=== PATIENT | male | born 1975 | race Caucasian/White ===

== ENCOUNTER 2019-06-03 14:25 | Inpatient (IN) | payer OTHER ==
[~2019-06-03] VITALS: Ht 180.3 cm; Wt 96.1 kg
[2019-06-03] MEDS ORDERED: SERT-138 PO (14:42)
[2019-06-03] MEDS ORDERED: BUSP10TA PO (14:42)
[2019-06-03] MEDS ORDERED: LORazepam 2 MG/ML VIAL (J2060) IV STA ×2 (15:00→17:09)
[2019-06-03] MEDS ORDERED: NS 1,000 ML IV ONE ×3 (15:00→19:00)
[2019-06-03] MEDS ORDERED: LORazepam 2 MG/ML VIAL (J2060) As Ordered ONE (15:01)
[2019-06-03 15:03] LABS: HEMATOCRIT 53.2 % (42.0-52.0); HEMOGLOBIN 18.8 g/dl (13.5-17.5); MEAN CORPUSCULAR HEMOGLOBIN 33.6 pg (27.0-33.0); MEAN CORPUSCULAR HGB CONC 35.3 g/dl (32.0-36.5); PLATELET COUNT, AUTOMATED 184 10^3/uL (150-450); WHITE BLOOD COUNT 14.2 10^3/uL (4.0-10.0)
[2019-06-03 15:40] LABS: ACETAMINOPHEN LEVEL < 2.0 UG/ML (10.0-30.0); ALBUMIN 4.6 GM/DL (3.2-5.2); ALT/SGPT 83 U/L (12-78); BILIRUBIN,DIRECT 0.7 MG/DL (0.0-0.2); BLOOD UREA NITROGEN 12 MG/DL (7-18); CALCIUM LEVEL 9.5 MG/DL (8.5-10.1); CARBON DIOXIDE LEVEL 13 MEQ/L (21-32); CHLORIDE LEVEL 96 MEQ/L (98-107); CREATININE FOR GFR 1.18 MG/DL (0.70-1.30); ETHYL ALCOHOL (ETHANOL) 0.084 % (0.000-0.010); GLOMERULAR FILTRATION RATE > 60.0 (>60); GLUCOSE, FASTING 113 MG/DL (70-100); POTASSIUM SERUM 3.4 MEQ/L (3.5-5.1); SALICYLATE LEVEL < 1.7 MG/DL (5.0-30.0); SODIUM LEVEL 136 MEQ/L (136-145); TOTAL PROTEIN 8.7 GM/DL (6.4-8.2)
[2019-06-03 18:07] LABS: VENOUS HCO3 17.8 MEQ/L (23.0-27.0); VENOUS O2 SATURATION 95.4 % (60.0-80.0); VENOUS PARTIAL PRESSURE CO2 28.2 mmHg (38.0-50.0); VENOUS PARTIAL PRESSURE O2 79.5 mmHg (30.0-50.0); VENOUS PH 7.417 UNITS (7.330-7.430); VENOUS STANDARD HCO3 20.4 MEQ/L; VENOUS TOTAL CO2 18.6 MEQ/L (24.0-28.0)
[2019-06-03] MEDS ORDERED: OXAZEPAM 15 MG CAP PO ONE (18:30)
[2019-06-03 18:34] LABS: BLOOD UREA NITROGEN 12 MG/DL (7-18); CALCIUM LEVEL 8.3 MG/DL (8.5-10.1); CARBON DIOXIDE LEVEL 20 MEQ/L (21-32); CHLORIDE LEVEL 102 MEQ/L (98-107); CREATININE FOR GFR 0.91 MG/DL (0.70-1.30); GLOMERULAR FILTRATION RATE > 60.0 (>60); GLUCOSE, FASTING 93 MG/DL (70-100); POTASSIUM SERUM 3.8 MEQ/L (3.5-5.1); SODIUM LEVEL 138 MEQ/L (136-145)
[2019-06-03 19:13] LABS: AMPHETAMINES LEVEL URINE NEGATIVE (NEGATIVE); BARBITURATES URINE NEGATIVE (NEGATIVE); BENZODIAZEPINES URINE NEGATIVE (NEGATIVE); CANNABINOIDS URINE NEGATIVE (NEGATIVE); COCAINE METABOLITE URINE NEGATIVE (NEGATIVE); METHADONE URINE NEGATIVE (NEGATIVE); OPIATES URINE NEGATIVE (NEGATIVE); PHENCYCLIDINE URINE NEGATIVE (NEGATIVE)
[2019-06-03 19:19] LABS: OSMOLALITY SERUM 300 MOSM/KG (275-295)
[2019-06-03] MEDS ORDERED: ONDANSETRON 4MG/2ML VIAL (J2405) IV ONE (21:00)
[2019-06-03] MEDS ORDERED: GI COCKTAIL 50ML BTL(HYOSCYAMINE/MAALOX/LIDOCAINE VISCOUS)(1:3:1) PO ONE (21:00)
[2019-06-04] MEDS ORDERED: LORazepam 2 MG TAB PO PRN (05:15)
[2019-06-04] MEDS: HEPARIN SOD (PORCINE) 5000 UNITS/ML VIAL SC SCH ×3 (05:57→21:39)
--- NOTE | 2019-06-04 07:30 | HPEPDOC ---
General Date of Admission Jun 04, 2019 at 05:10 Date of Service: Jun 04, 2019 Attending Physician: DEYSI JEAN BAPTISTE MD Chief Complaint The patient is a 44-year-old male admitted with a reason for visit of Alcohol Withdrawl. Source: Patient Exam Limitations: No limitations Timing/Duration: 24 hours Severity: Moderate Associated Symptoms: Other (tremors and restlessness) History of Present Illness 44 yo man with a history of alcohol use disorder with daily consumption of 1L of tequila who presented to the ED 24 hour after his last drink reporting increased tremors and restlessness requesting detox. He reports a history of DTs and reported having had a seizure at home before presentation. He also reports smoking at least 1 pack of cigarettes, frequent marijuana use but otherwise does not use any cocaine, heroine, PCP or misuse of prescription medications. In the ED, per nursing his initial exam was notable for significant hand tremors that resolved with administration of benzodiazepines. He otherwise is afebrile, hemodynamically stable with sinus rhythm on telemery. Home Medications Scheduled Buspirone HCl (Buspirone HCl) 10 Mg Tablet, 10 MG PO TID, (Reported) Sertraline HCl (Sertraline HCl) 100 Mg Tablet, 100 MG PO DAILY, (Reported) Allergies Coded Allergies: No Known Allergies (Unverified , 06/03/19) Past Medical History Medical History Alcohol use disorder Smoking Marijuana use Depression Anxiety Surgical History None Social History * Smoker: current smoker Alcohol: heavy Drugs: marijuana Recent Travel/Sick Contacts: Denies: Recent travel, Recent sick contacts Psychosocial History: Anxiety, Depression A-FIB/CHADSVASC A-FIB History Current/History of A-Fib/PAF?: No Current PO Anticoag Therapy: No Age/Risk Factor Scoring CHADSVASC: CHADSVASC Response (Comments) Value Age Risk Factor Age < 65 years old 0 Gender Risk Factor Male 0 Hx of CHF No 0 Hx of HTN No 0 Hx of Stroke/TIA/or VTE No 0 Hx of Diabetes No 0 Hx of Vascular Disease No 0 Total 0 Treatment Treatment ordered: NONE Reason Anticoagulant not given: Not indicated/[id number] Review of Systems Constitutional: Denies: Chills, Fever, Night Sweats Eyes: Denies: Pain, Vision change ENT: Denies: Head Aches, Ear Pain, Dysphagia Skin: Denies: Rash, Lesions, Breakdown Pulmonary: Denies: Dyspnea, Cough Cardiovascular: Denies: Chest Pain, Palpitations, Orthopnea, Paroxysmal Noc. Dyspnea, Lt Headedness Gastrointestinal: Denies: Nausea, Vomiting, Abdominal Pain, Diarrhea Genitourinary: Denies: Dysuria, Frequency, Incontinence, Retention Hematologic: Denies: Bruising, Bleeding Excessively Endocrine: Denies: Polydipsia, Polyphagia, Polyuria, Heat Intolerance, Cold Intolerance, Other Endocrine Sx Musculoskeletal: Denies: Neck Pain, Back Pain, Joint Pain, Muscle Pain, Spasms Neurological: Reports: Seizures, Other Symptoms (tremors, restlessness); Denies: Weakness, Numbness, Change in speech, Confusion Psych: Reports: Mood Normal, Anxiety, Depression, Thoughts of Harming Other; Denies: Memory Issues, Thoughts of Self Harm Physical Examination General Exam: Positive: Alert (initially asleep, awake on voice), No Acute Dis tress Eye Exam: Positive: PERRLA, Conjunctiva & lids normal, EOMI; Negative: Sclera icteric ENT Exam: Positive: Atraumatic, Mucous membr. moist/pink, Pharynx Normal Neck Exam: Positive: Supple; Negative: JVD, thyromegaly Chest Exam: Positive: Clear to auscultation, Normal air movement Heart Exam: Positive: Rate Normal, Regular Rhythm, Normal S1, Normal S2; Negative: Murmurs, Rubs Telemetry: Positive: No significant arrhythmia Abdomen Exam: Positive: Normal bowel sounds, Soft; Negative: Tenderness, Hepatospenomegaly Extremity Exam: Positive: Normal pulses; Negative: Clubbing, Cyanosis, Edema Skin Exam: Positive: Nl turgor and temperature; Negative: Breakdown, Lesion Neuro Exam: Positive: Strength at 5/5 X4 ext, Normal Tone, Cranial Nerves 3-12 NL, Other (no tremor note) Psych Exam: Positive: Mental status NL, Mood NL, Oriented x 3 Vital Signs Vital Signs Date Time Temp Pulse Resp B/P (MAP) Pulse Ox O2 Delivery O2 Flow Rate FiO2 06/04/19 05:59 143/88 06/04/19 05:55 98.8 88 22 94 Room Air Laboratory Data Labs 24H Laboratory Tests 2 06/03/19 14:44: Anion Gap 27H, Glomerular Filtration Rate > 60.0, Calcium Level 9.5, Total Bilirubin 2.0H, Direct Bilirubin 0.7H, Aspartate Amino Transf (AST/SGOT) 77H, Alanine Aminotransferase (ALT/SGPT) 83H, Alkaline Phosphatase 124H, Total Protein 8.7H, Albumin 4.6, Albumin/Globulin Ratio 1.12, Thyroid Stimulating Hormone (TSH) 1.280, Salicylates Level < 1.7L, Acetaminophen Level < 2.0L, Ethyl Alcohol Level 0.084H 06/03/19 14:47: Nucleated Red Blood Cells % (auto) 0.0 06/03/19 17:53: Anion Gap 16, Glomerular Filtration Rate > 60.0, Calcium Level 8.3L, Blood Gas Bicarbonate Standard 20.4, Venous Blood pH 7.417, Venous Blood Partial Pressure CO2 28.2L, Venous Blood Partial Pressure O2 79.5H, Venous Blood Total Carbon Dioxide 18.6L, Venous Blood HCO3 17.8L, Venous Blood Oxygen Saturation 95.4H, Venous Blood Base Excess -5.0L, Osmolality 300H, Lactic Acid Level 4.4*H 06/03/19 18:24: Urine Opiates Screen NEGATIVE, Urine Methadone Screen NEGATIVE, Urine Barbiturates Screen NEGATIVE, Urine Phencyclidine Screen NEGATIVE, Urine Amphetamines Screen NEGATIVE, Urine Benzodiazepines Screen NEGATIVE, Urine Saran emmanuel Metabolite Screen NEGATIVE, Urine Cannabinoids Screen NEGATIVE 06/03/19 22:11: Lactic Acid Level 1.3 CBC/BMP Laboratory Tests 06/03/19 14:44 06/03/19 14:47 06/03/19 17:53 Assessment/Plan 44 yo man with alcohol use disorder admitted for detox. Plan: Alcohol use disorder: -[facility] protocol -thiamine -folate - consult -s/p 3L NS Depression -continue home buspar and sertraline DVT prophylaxis: heparin [id number] Diet: regular Plan / VTE VTE Prophylaxis Ordered?: Yes DEYSI JEAN BAPTISTE MD Jun 04, 2019 07:30
[2019-06-04 08:55] LABS: HEMATOCRIT 43.9 % (42.0-52.0); MEAN CORPUSCULAR HEMOGLOBIN 33.3 pg (27.0-33.0); MEAN CORPUSCULAR HGB CONC 34.6 g/dl (32.0-36.5); MEAN CORPUSCULAR VOLUME 96.1 fl (80.0-96.0); PLATELET COUNT, AUTOMATED 107 10^3/uL (150-450); RED BLOOD COUNT 4.57 10^6/uL (4.30-6.10); WHITE BLOOD COUNT 11.2 10^3/uL (4.0-10.0)
[2019-06-04 08:58] LABS: HEMOGLOBIN 15.2 g/dl (13.5-17.5)
[2019-06-04 09:31] LABS: ALBUMIN 3.3 GM/DL (3.2-5.2); ALT/SGPT 55 U/L (12-78); BILIRUBIN,TOTAL 2.3 MG/DL (0.2-1.0); BLOOD UREA NITROGEN 14 MG/DL (7-18); CALCIUM LEVEL 8.3 MG/DL (8.5-10.1); CARBON DIOXIDE LEVEL 26 MEQ/L (21-32); CHLORIDE LEVEL 105 MEQ/L (98-107); CREATININE FOR GFR 0.76 MG/DL (0.70-1.30); GLOMERULAR FILTRATION RATE > 60.0 (>60); GLUCOSE, FASTING 94 MG/DL (70-100); POTASSIUM SERUM 3.7 MEQ/L (3.5-5.1); SODIUM LEVEL 139 MEQ/L (136-145); TOTAL PROTEIN 6.6 GM/DL (6.4-8.2)
[2019-06-04] MEDS: FOLIC ACID 1 MG TAB PO SCH (09:39)
[2019-06-04] MEDS: MULTIVITAMINS/MINERALS THERAP 1 TAB PO SCH (09:40)
[2019-06-04] MEDS: busPIRone 10 MG TAB PO SCH ×3 (09:40→21:40)
[2019-06-04] MEDS: THIAMINE 100 MG TAB PO SCH ×2 (09:40→21:39)
[2019-06-04] MEDS: SERTRALINE 100 MG TAB PO SCH (09:40)
[2019-06-04 09:50] VITALS: BP 160/96
[2019-06-04 10:00] VITALS: BP 160/96
[2019-06-04] MEDS: amLODIPine 5 MG TAB PO SCH ×2 (12:24→21:40)
[2019-06-04] MEDS: OXAZEPAM 10 MG CAP PO SCH ×2 (12:24→17:37)
[2019-06-04] MEDS: METOPROLOL TART 25 MG TABLET PO SCH ×2 (14:15→17:36)
[2019-06-04 15:10] VITALS: BP 168/90
--- NOTE | 2019-06-04 15:32 | IPN ---
DATE: 06/04/2019 The patient complained of restlessness and shakes. No nausea, vomiting or epigastric pain. Denies any paresthesias in bilateral upper or lower extremities. Extremely uncomfortable and says that his last drink was 2 days ago. Despite blood pressure 160/96, denies any headache, changes in vision, nausea or confusion. PHYSICAL EXAMINATION: Temperature 98, pulse 96, respiratory rate 20, blood pressure 160/96, 92% on room air. GENERAL: The patient is awake, alert and oriented times three. Answering questions appropriately. Anicteric sclerae. No jaundice. Pupils are round, reactive to light and accommodation. Extraocular muscles are intact. No jugular venous distention (JVD) or thyromegaly. No cervical lymphadenopathy. Tongue is midline. Lungs are clear to auscultation. No wheezing, rales or rhonchi. Heart: S1, S2. Sinus rhythm. Abdomen is soft, nontender, nondistended. Positive bowel sounds. Extremities with no cyanosis, clubbing or pitting edema. Skin: The patient is diaphoretic at the bedside. He has asterixis. No tremors. LABORATORY DATA: White count 11, hemoglobin 15, hematocrit 43, platelet count 107. Sodium 139, potassium 3.7, chloride 105, bicarbonate 26, BUN 14, creatinine 0.76, glucose 94. Calcium 8.3, total bilirubin 2.3, AST 48, ALT 55. ASSESSMENT AND PLAN: This is a 44-year-old male with a history of chronic alcohol abuse, presented to the emergency room 2 days after stopping alcohol with complaints of increasing tremors, restlessness and diaphoresis. Urine drug screen was negative for cocaine, heroin, PCP. He was afebrile. Laboratory data showed lactic acid of 4.4, which improved to 1.3 after fluid hydration. CURRENT ISSUES: 1. Acute alcohol withdrawal. Currently on Clinical [place] Withdrawal Assessment (CIWA) protocol. Thiamine, folic acid, and multivitamin. He is currently on Serax 20 mg every 6 hours. Resume on his home dose of BuSpar, sertraline as an outpatient. 2. Deep vein thrombosis (DVT) prophylaxis.
--- NOTE | 2019-06-04 15:56 | IPNPDOC ---
Date Seen The patient was seen on 06/04/19. Progress Note DEPRESSION -pt admits to suicidal ideation 1 wk prior to admission. he denies suicidal attempt or homicidal tendencies. -psychiatrist dr. Brunner has been consulted. -family with stay with him 09/03 in the room. HEMATURIA -check u/a, urine culture -check KUB r/o kidney stones -no signs of hemolysis VS, I&O, 24H, Fishbone Vital Signs/I&O Vital Signs Date Time Temp Pulse Resp B/P (MAP) Pulse Ox O2 Delivery O2 Flow Rate FiO2 06/04/19 15:10 98.3 91 14 168/90 (116) 93 Room Air I&O- Last 24 Hours up to 6 AM 06/04/19 06:00 Intake Total 3000 ml Balance 3000 ml Laboratory Data 24H LABS Laboratory Tests 2 06/03/19 17:53: Blood Gas Bicarbonate Standard 20.4, Venous Blood pH 7.417, Venous Blood Partial Pressure CO2 28.2L, Venous Blood Partial Pressure O2 79.5H, Venous Blood Total Carbon Dioxide 18.6L, Venous Blood HCO3 17.8L, Venous Blood Oxygen Saturation 95.4H, Venous Blood Base Excess -5.0L, Anion Gap 16, Glomerular Filtration Rate > 60.0, Osmolality 300H, Lactic Acid Level 4.4*H, Calcium Level 8.3L 06/03/19 18:24: Urine Opiates Screen NEGATIVE, Urine Methadone Screen NEGATIVE, Urine Barbiturates Screen NEGATIVE, Urine Phencyclidine Screen NEGATIVE, Urine Amphetamines Screen NEGATIVE, Urine Benzodiazepines Screen NEGATIVE, Urine Cocaine Metabolite Screen NEGATIVE, Urine Cannabinoids Screen NEGATIVE 06/03/19 22:11: Lactic Acid Level 1.3 06/04/19 08:43: Anion Gap 8, Glomerular Filtration Rate > 60.0, Calcium Level 8.3L, Nucleated Red Blood Cells % (auto) 0.0, Total Bilirubin 2.3H, Aspartate Amino Transf (AST/SGOT) 48H, Alanine Aminotransferase (ALT/SGPT) 55, Alkaline Phosphatase 89, Total Protein 6.6#, Albumin 3.3#, Albumin/Globulin Ratio 1.00 CBC/BMP Laboratory Tests 06/03/19 17:53 06/04/19 08:43 JOSTIN ANDRE MD Jun 04, 2019 15:56
[2019-06-04] MEDS ORDERED: SUCRALFATE SUSP 1GM/10ML UD PO ONE (16:00)
[2019-06-04] MEDS: cloNIDine 0.1 MG TAB PO SCH ×2 (16:38→21:40)
[2019-06-04] MEDS: NICOTINE 14 MG/24 HR TRANSDERMAL TD SCH (17:36)
[2019-06-04 18:11] LABS: HEMATOCRIT 43.5 % (42.0-52.0); HEMOGLOBIN 15.1 g/dl (13.5-17.5)
[2019-06-04] MEDS: SUCRALFATE SUSP 1GM/10ML UD PO SCH (21:38)
[2019-06-04] MEDS: PANTOPRAZOLE 40MG TAB (PROTONIX) PO SCH (21:39)
[2019-06-04 22:00] VITALS: BP 142/92
[2019-06-04 22:41] VITALS: BP 136/90
[2019-06-05] VITALS (10 sets, daily range): BP systolic 106–142; BP diastolic 60–95
[2019-06-05] MEDS: OXAZEPAM 10 MG CAP PO SCH ×5 (00:08→23:49)
[2019-06-05] MEDS: cloNIDine 0.1 MG TAB PO SCH ×4 (03:37→22:04)
[2019-06-05] MEDS: METOPROLOL TART 25 MG TABLET PO SCH ×5 (06:00→23:48)
[2019-06-05] MEDS: HEPARIN SOD (PORCINE) 5000 UNITS/ML VIAL SC SCH (06:10)
[2019-06-05 06:23] LABS: HEMATOCRIT 43.9 % (42.0-52.0); HEMOGLOBIN 15.4 g/dl (13.5-17.5); MEAN CORPUSCULAR HEMOGLOBIN 33.8 pg (27.0-33.0); MEAN CORPUSCULAR HGB CONC 35.1 g/dl (32.0-36.5); MEAN CORPUSCULAR VOLUME 96.5 fl (80.0-96.0); RED BLOOD COUNT 4.55 10^6/uL (4.30-6.10); WHITE BLOOD COUNT 7.6 10^3/uL (4.0-10.0)
[2019-06-05 06:27] LABS: PLATELET COUNT, AUTOMATED 92 10^3/uL (150-450)
[2019-06-05 06:53] LABS: ALBUMIN 3.1 GM/DL (3.2-5.2); ALT/SGPT 53 U/L (12-78); BILIRUBIN,TOTAL 1.2 MG/DL (0.2-1.0); BLOOD UREA NITROGEN 14 MG/DL (7-18); CALCIUM LEVEL 8.7 MG/DL (8.5-10.1); CARBON DIOXIDE LEVEL 30 MEQ/L (21-32); CHLORIDE LEVEL 105 MEQ/L (98-107); CREATININE FOR GFR 0.81 MG/DL (0.70-1.30); GLOMERULAR FILTRATION RATE > 60.0 (>60); GLUCOSE, FASTING 110 MG/DL (70-100); POTASSIUM SERUM 3.3 MEQ/L (3.5-5.1); SODIUM LEVEL 138 MEQ/L (136-145); TOTAL PROTEIN 6.6 GM/DL (6.4-8.2)
[2019-06-05] MEDS: SUCRALFATE SUSP 1GM/10ML UD PO SCH ×4 (07:26→22:03)
[2019-06-05] MEDS: PANTOPRAZOLE 40MG TAB (PROTONIX) PO SCH ×2 (08:25→22:03)
[2019-06-05] MEDS: FOLIC ACID 1 MG TAB PO SCH (08:25)
[2019-06-05] MEDS: THIAMINE 100 MG TAB PO SCH ×2 (08:25→22:04)
[2019-06-05] MEDS: SERTRALINE 100 MG TAB PO SCH (08:25)
[2019-06-05] MEDS: MULTIVITAMINS/MINERALS THERAP 1 TAB PO SCH (08:25)
[2019-06-05] MEDS: amLODIPine 5 MG TAB PO SCH ×2 (08:25→22:03)
[2019-06-05] MEDS: NICOTINE 14 MG/24 HR TRANSDERMAL TD SCH (08:26)
[2019-06-05] MEDS: busPIRone 10 MG TAB PO SCH ×3 (08:26→22:03)
[2019-06-05] MEDS ORDERED: POTASSIUM CHLORIDE 10 MEQ SR TABLET PO ONE (10:00)
[2019-06-05] MEDS ORDERED: MAG SULF 1GM/100ML (MAG RUN) 1 GM in IV 1 EA IV ONE (10:00)
--- NOTE | 2019-06-05 10:14 | REP ---
KUB: Three views presented. History: Hematuria. Rule out nephrolithiasis. Findings: The bowel gas pattern is normal. There are tiny calcific opacities projecting over the kidneys, one on each side measuring 3 mm in greatest diameter. The colon overlies these densities. No lower tract calculi are seen. Phleboliths are noted in the left pelvis. No bony abnormality is seen. Flank stripes and psoas margins are intact. Impression: Possible intrarenal calculus in the upper pole region of each kidney, 3 mm in size. Electronically Signed by Lenin Leyva MD 06/05/2019 10:18 A
[2019-06-05] MEDS ORDERED: MORPHINE 4 MG/ML 1ML VIAL/SYRINGE (J2270) IV PRN (11:00)
[2019-06-05] MEDS ORDERED: PERCOCET 5MG/325MG TAB PO PRN (11:00)
[2019-06-05] MEDS: NS 1,000 ML IV SCH ×2 (11:20→12:58)
--- NOTE | 2019-06-05 15:00 | IPN ---
DATE: 06/05/2019 The patient had noted black stools at home, none here in the hospital. No bright red blood per rectum, melena, black tarry stools during this admission and no hematemesis. The patient denies any abdominal pain. He has some hematuria prior to coming in but none since. Complains of pain radiating down towards the groin. X-ray shows a kidney stone. Currently on IV fluids. Urine culture is negative. No other signs of infection at this time. On IV morphine and Percocet as needed. The patient has been started on Carafate and Protonix. For now, he is tolerating his diet. No nausea or vomiting. Anicteric sclerae. No other issues. PHYSICAL EXAMINATION: VITAL SIGNS: Temperature 98, pulse 82, respiratory rate 18, blood pressure 152/84, 94% on room air. GENERAL: Awake, alert and oriented times three. Answering questions appropriately. Anicteric sclerae. No jaundice. LUNGS: Clear to auscultation with no wheezing, rales or rhonchi. HEART: S1, S2. Sinus rhythm. ABDOMEN: Soft, nontender, nondistended. Positive bowel sounds. EXTREMITIES: No cyanosis, clubbing or pitting edema. CBC and metabolic panel have been reviewed this morning and notable for a potassium of 3.3, total bilirubin 1.2. IMAGING STUDIES: Abdominal x-ray showed a 3 mm intrarenal calculus in the upper pole in the kidney. ASSESSMENT AND PLAN: 44-year-old admitted for alcohol withdrawal and complained of suicide ideation prior to admission, melena and hematuria with groin pain, found to have kidney stone and possible alcoholic related gastritis with normal hemoglobin of 15 and hematocrit of 43 without complaints of shortness of breath, chest pain, pressure, tightness, dizziness, or lightheadedness. ACTIVE ISSUES: 1. Alcohol withdrawal, currently improved on clonidine. Serax. Currently on multivitamin, thiamine, and folate. No seizure activity. Denies any tremors and no asterixis on examination today. 2. Severe depression with suicidal ideation. Currently on Zoloft. The patient is to be seen by psychiatrist, Dr. Karlo Brunner. 3. Active tobacco use. On nicotine patch. 4. Black stool at home. Currently stable hemoglobin and hematocrit. No signs of gastrointestinal bleed during this admission. On Protonix twice a day and Carafate. If the patient has overt gastrointestinal bleed, we will keep nothing by mouth, Protonix drip, potential octreotide drip and GI consultation with possible esophagogastroduodenoscopy (EGD). 5. Uncontrolled hypertension due to withdrawal. Stable on clonidine and metoprolol.
[2019-06-05 19:56] LABS: HEMATOCRIT 44.2 % (42.0-52.0); HEMOGLOBIN 15.2 g/dl (13.5-17.5)
[2019-06-05] MEDS ORDERED: NICOTINE 21MG/24HR 1 EA TRANSDERMAL TD ONE (23:30)
[2019-06-06] VITALS (7 sets, daily range): BP systolic 111–148; BP diastolic 77–94
[2019-06-06] MEDS: cloNIDine 0.1 MG TAB PO SCH ×4 (04:09→21:14)
[2019-06-06] MEDS: METOPROLOL TART 25 MG TABLET PO SCH ×3 (05:58→18:00)
[2019-06-06] MEDS: OXAZEPAM 10 MG CAP PO SCH ×3 (06:03→18:34)
[2019-06-06 06:23] LABS: HEMATOCRIT 45.2 % (42.0-52.0); HEMOGLOBIN 15.5 g/dl (13.5-17.5); MEAN CORPUSCULAR HEMOGLOBIN 33.1 pg (27.0-33.0); MEAN CORPUSCULAR HGB CONC 34.3 g/dl (32.0-36.5); MEAN CORPUSCULAR VOLUME 96.6 fl (80.0-96.0); RED BLOOD COUNT 4.68 10^6/uL (4.30-6.10); WHITE BLOOD COUNT 9.5 10^3/uL (4.0-10.0)
[2019-06-06 06:24] LABS: PLATELET COUNT, AUTOMATED 95 10^3/uL (150-450)
[2019-06-06 06:52] LABS: ALBUMIN 3.2 GM/DL (3.2-5.2); ALT/SGPT 71 U/L (12-78); BILIRUBIN,TOTAL 1.1 MG/DL (0.2-1.0); BLOOD UREA NITROGEN 9 MG/DL (7-18); CALCIUM LEVEL 9.4 MG/DL (8.5-10.1); CARBON DIOXIDE LEVEL 30 MEQ/L (21-32); CHLORIDE LEVEL 106 MEQ/L (98-107); CREATININE FOR GFR 0.86 MG/DL (0.70-1.30); GLOMERULAR FILTRATION RATE > 60.0 (>60); GLUCOSE, FASTING 100 MG/DL (70-100); POTASSIUM SERUM 3.6 MEQ/L (3.5-5.1); SODIUM LEVEL 140 MEQ/L (136-145); TOTAL PROTEIN 7.2 GM/DL (6.4-8.2)
[2019-06-06] MEDS: SUCRALFATE SUSP 1GM/10ML UD PO SCH ×4 (07:30→21:13)
[2019-06-06] MEDS: amLODIPine 5 MG TAB PO SCH ×2 (09:00→21:13)
[2019-06-06] MEDS ORDERED: NICOTINE 21MG/24HR 1 EA TRANSDERMAL TD SCH ×2 (09:00)
[2019-06-06] MEDS: MULTIVITAMINS/MINERALS THERAP 1 TAB PO SCH (09:43)
[2019-06-06] MEDS: busPIRone 10 MG TAB PO SCH ×3 (09:43→21:13)
[2019-06-06] MEDS: PANTOPRAZOLE 40MG TAB (PROTONIX) PO SCH ×2 (09:43→21:13)
[2019-06-06] MEDS: SERTRALINE 100 MG TAB PO SCH (09:43)
[2019-06-06] MEDS: THIAMINE 100 MG TAB PO SCH ×2 (09:44→21:13)
[2019-06-06] MEDS: FOLIC ACID 1 MG TAB PO SCH (09:44)
[2019-06-06] MEDS ORDERED: CLONI1TA PO (12:24)
[2019-06-06] MEDS ORDERED: NICO21PAT TD (12:24)
[2019-06-06] MEDS ORDERED: THIA100TA PO (12:24)
[2019-06-06] MEDS ORDERED: AMLO5TAB6 PO (12:24)
[2019-06-06] MEDS ORDERED: SUCR10SS PO (12:24)
[2019-06-06] MEDS ORDERED: FOLI1TAB11 PO (12:24)
[2019-06-06] MEDS ORDERED: VITMTA PO (12:24)
[2019-06-06] MEDS ORDERED: PANT40TA3 PO (12:24)
--- NOTE | 2019-06-06 12:31 | DS.PDOC ---
Discharge Summary General Date of Admission Jun 04, 2019 at 05:10 Date of Discharge 06/06/19 Discharge Summary Chief complaints: Suicidal ideation Final diagnosis Alcohol withdrawal Suicidal ideation Possible blood in the stool History of present illness and Hospital course 44-year-old admitted for alcohol withdrawal and complained of suicide ideation prior to admission, melena and hematuria with groin pain, found to have kidney stone and possible alcoholic related gastritis with normal hemoglobin of 15 and hematocrit of 43 without complaints of shortness of breath, chest pain, pressure, tightness, dizziness, or lightheadedness. The patient had noted black stools at home, none here in the hospital. No bright red blood per rectum, melena, black tarry stools during. Urine culture is negative. No other signs of infection at this time. The patient has been started on Carafate and Protonix. For now, he is tolerating his diet. No nausea or vomiting. Anicteric sclerae. No other issues. Alcohol withdrawal, currently improved on clonidine. Serax. Currently on multivitamin, thiamine, and folate. No seizure activity. Denies any tremors and no asterixis on examination today. He will be discharged to the inpatient mental health. The paperwork has been initiated. Damon protocol and on the withdrawal protocol as per psychiatric. Black stool at home. Currently stable hemoglobin and hematocrit for the last 48 hours. No signs of gastrointestinal bleed during this admission. On Protonix twice a day and Carafate. Will require outpatient GI follow-up once he is psychiatrically optim ized. His hypertension. He continues to be on amlodipine and clonidine. Only once his alcohol withdrawal symptoms are Better, we will be able to titrate the antihypertensive medications down. PHYSICAL EXAMINATION: VITAL SIGNS: Temperature 98, pulse 82, respiratory rate 18, blood pressure 152/84, 94% on room air. GENERAL: Awake, alert and oriented times three. Answering questions appropriately. Anicteric sclerae. No jaundice. LUNGS: Clear to auscultation with no wheezing, rales or rhonchi. HEART: S1, S2. Sinus rhythm. ABDOMEN: Soft, nontender, nondistended. Positive bowel sounds. EXTREMITIES: No cyanosis, clubbing or pitting edema. Dictations. As per discharge reconciliation medication list Activity as tolerated Diet. 2 g sodium diet Follow-up appointments. PCP in 1 week, psychiatrically follow-up as per recommendations by inpatient mental health Condition on discharge. Patient is medically optimized for discharge Discharge disposition: Patient mental health Total time spent on this discharge including coordination of care, review of chart documentation and extubation contact is around 35 minutes Vital Signs/I&Os Vital Signs Date Time Temp Pulse Resp B/P (MAP) Pulse Ox O2 Delivery O2 Flow Rate FiO2 06/06/19 09:47 110/76 06/06/19 09:00 73 06/06/19 06:02 12 06/06/19 05:30 97.0 96 Room Air I&O- Last 24 Hours up to 6 AM 06/06/19 06:00 Intake Total 4808 ml Output Total 2775 ml Balance 2033 ml Laboratory Data Labs 24H Laboratory Tests 2 06/06/19 06:01: Nucleated Red Blood Cells % (auto) 0.0, Immature Platelet Fraction 10.2, Anion Gap 4L, Glomerular Filtration Rate > 60.0, Calcium Level 9.4, Total Bilirubin 1.1H, Aspartate Amino Transf (AST/SGOT) 56H, Alanine Aminotransferase (ALT/SGPT) 71, Alkaline Phosphatase 105, Total Protein 7.2, Albumin 3.2, Albumin/Globulin Ratio 0.80L CBC/BMP Laboratory Tests 06/05/19 18:14 06/06/19 06:01 Microbiology Microbiology 06/04/19 Stool Occult Blood (LORI) - Final, Complete Discharge Medications Scheduled Amlodipine Besylate (Amlodipine Besylate) 5 Mg Tablet, 5 MG PO BID Buspirone HCl (Buspirone HCl) 10 Mg Tablet, 10 MG PO TID, (Reported) Clonidine Hcl (Clonidine HCl) 0.1 Mg Tablet, 0.1 MG PO Q6H Folic Acid (Folic Acid) 1 Mg Tablet, 1 MG PO DAILY Multivitamins (Thera M Plus Tablet) 1 Each Tablet, 1 TAB PO DAILY Nicotine (Nicotine Patch) 21 Mg Patch.td24, 1 PATCH TD DAILY Pantoprazole Sodium (Pantoprazole Sodium) 40 Mg Tablet.dr, 40 MG PO BID Sertraline HCl (Sertraline HCl) 100 Mg Tablet, 100 MG PO DAILY, (Reported) Sucralfate (Sucralfate) 1 Gm/10 Ml Oral.susp, 1 GM PO ACHS Thiamine Hcl (Vitamin B-1) 100 Mg Tablet, 100 MG PO BID Allergies Coded Allergies: No Known Allergies (Unverified , 06/03/19) MEREDITH KNIGHT MD Jun 06, 2019 12:31
--- NOTE | 2019-06-06 14:10 | CR ---
DATE OF CONSULTATION: 06/05/2019 CHIEF COMPLAINT: He is depressed and suicidal. SUBJECTIVE: He is 44 years old, single, was recently engaged, has an 8-year-old son, who he does not have direct access to. I have been asked to see him by Dr. Delgado, hospitalist, as the patient has been depressed and has been talking of taking his own life. The chart is reviewed. Patient is interviewed, and also spoke with his parents, who I spoke with them separate from the patient, with his permission. He says he has had long struggles with depression and without alcohol dependence, and has been in various treatments of sorts, none recently, has attended treatment some time last year, and says there was a point a few years ago when he was free of alcohol for about a year. The last he was free of alcohol for 2-3 weeks was sometime this summer. Otherwise, has been drinking regularly, daily, and that increased after the breakup of his relationship with his finance a couple of weeks ago. Says he felt fairly depressed, hopeless, despondent, alcohol intake increased. Says had been thinking of taking his own life, wanted to drink himself to , says a friend found out, and came to visit. Says she would walk in and actually ask "are you still alive". These are his words. He says his mother was then informed, she visited, just a few days ago, and was the persuaded by them to seek help, and his mother brought him to the hospital. He has been admitted by the hospitalists to address alcohol withdrawal, mother had indicated that the patient had been vomiting, and had passed blood as well, prior to coming in. Patient says continues feeling depressed, is unsure if he would take his own life, but suggests he wishes to , acknowledges that his picking up alcohol again is quite likely without help. Says unable to see his son, who is 8, says this is court ordered, and that he would need to be in treatment for him to get visitations back, also suggests that he feels that the local justice court judge is somehow against him, and that the justice court judge would "come up with something else". These are his words, in order for him not to see his son. Says he used to see his son till last year, there are some questions regarding child support, and he ended up in nursing home, has no charges pending now. Says when free of alcohol, remains depressed and gets anxious as well, with poor sleep, poor appetite, poor concentration. He says he has never admitted to inpatient psychiatry, has been on antidepressants, and is currently on sertraline at 100 mg, also taking buspirone 10 mg three times a day. Says he has seen outpatient psychiatry, but suggests this was quite a while back. Collateral information from parents suggests longstanding struggle with alcohol, and depression as well, and he has talked in terms of suicide off and on for quite a while. SUBSTANCE ABUSE HISTORY: As indicated above. Has had a longstanding difficulties with alcohol. Has had varied treatments, and currently is looking at going to rehab. Collateral information from mother indicated that she has been exploring rehabilitation facilities in [facility], and [facility] once patient is ready. FAMILY SUBSTANCE ABUSE HISTORY: Younger brother has trouble with alcohol, so did some grandparents apparently. SOCIAL HISTORY: Stays on his own, was with is finance. They broke up recently. He has an 8-year-old son from a previous relationship whom he has no direct contact with, which is a main stressor for him. PAST MEDICAL HISTORY: Please see above, has a history of alcohol miss use, marijuana miss use as well. MENTAL STATUS EXAMINATION: He is lying in bed, later sitting up, fairly neat, cooperative, coherent, tearful, feels depressed, has suicidal thoughts, vague on plans, no homicidal ideas or intents. No evidence of psychosis. Cognition grossly intact, is quite questionable. Insight is fair. VITAL SIGNS: Blood pressure 135/83, pulse 85, temperature 97.6. INVESTIGATIONS: Urine toxicology essentially negative. Alcohol 0.084 upon arrival. Metabolic profile shows a potassium 3.3, AST 41. ASSESSMENT: 1. Other specified depressive disorder. 2. Alcohol use disorder. 3. Alcohol withdrawal. 4. Rule out major depressive disorder. 5. Recent breakup. 6. Limited access to son. 7. Limited social support. He is depressed, increasingly severe so, and depends upon alcohol, with increasing consumption, despondent, feels hopeless, has suicidal thoughts, had intended to drink himself to till his mother and friend persuaded him to come to the hospital. Several stressors, including breakup of relationship recently, restricted contact with 8-year-old son. Collateral information from parents corroborate considerable difficulties and concerns. When free of alcohol, the patient feels depressed as well, says has had a 2-3 free period sometime this summer. RECOMMENDATION: Optimize his care, including alcohol withdrawal. When fully medically cleared, would recommend inpatient psychiatric hospitalization for further management. It is preferable this is done before he goes to rehabilitation. Mother suggested rehabilitation would be preferable in the [place] area, where she has been making inquiries. Thank you for the consult. If any questions, please call. The assessment took 60 minutes.
[2019-06-06 18:12] LABS: HEMATOCRIT 45.6 % (42.0-52.0); HEMOGLOBIN 15.7 g/dl (13.5-17.5)
== END 2019-06-06 21:20 | DRG 775 ==
LOC: M ED 14:25 → M ED INP 06-04 05:10 → M MSPAV 06-04 15:04
PROVIDERS: ADMIT Internal Medicine; ATTEND Internal Medicine
DX: F10.239 Alcohol dependence with withdrawal, unspecified (principal); F32.9 Major depressive disorder, single episode, unspecified; F17.210 Nicotine dependence, cigarettes, uncomplicated; F12.10 Cannabis abuse, uncomplicated; Z63.5 Disruption of family by separation and divorce; Z63.8 Other specified problems related to primary support group; Z79.899 Other long term (current) drug therapy

== ENCOUNTER 2019-06-06 19:01 | Inpatient (IN) | payer OTHER ==
[~2019-06-06] VITALS: Ht 180.3 cm; Wt 98.0 kg
[~2019-06-06 19:01] MED LIST: AMLO5TAB6 PO; BUSP10TA PO; CLONI1TA PO; FOLI1TAB11 PO; NICO21PAT TD; PANT40TA3 PO; SERT-138 PO; SUCR10SS PO; THIA100TA PO; VITMTA PO
[2019-06-06] MEDS ORDERED: MOM 30ML SUSPENSION UDC PO PRN (19:15)
[2019-06-06] MEDS ORDERED: MAALOX 30 ML SUSP *UDC PO PRN (19:15)
[2019-06-06] MEDS ORDERED: ACETAMINOPHEN TAB 650MG DOSE (2X325MG) PO PRN (19:15)
[2019-06-06] MEDS ORDERED: LORazepam 2 MG TAB PO PRN (19:15)
[2019-06-06] MEDS ORDERED: traZODone 50 MG TAB PO PRN (19:15)
[2019-06-06 21:00] VITALS: BP 148/92
[2019-06-06] MEDS: THIAMINE 100 MG TAB PO SCH (21:00)
[2019-06-06 23:10] VITALS: BP 127/85
[2019-06-07 06:42] VITALS: BP 130/85
[2019-06-07] MEDS: THIAMINE 100 MG TAB PO SCH ×2 (08:30→20:18)
[2019-06-07] MEDS: FOLIC ACID 1 MG TAB PO SCH (08:30)
[2019-06-07] MEDS: MULTIVITAMINS/MINERALS THERAP 1 TAB PO SCH (08:30)
--- NOTE | 2019-06-07 08:55 | HPEPDOC ---
General Date of Admission Jun 06, 2019 at 21:24 Date of Service: Jun 07, 2019 Attending Physician: ANUJ BAÑUELOS DO Chief Complaint The patient is a 44-year-old male admitted with a reason for visit of Other Specified Depressive Disorder. History of Present Illness Consultation Medical as Patient referred by Inpatient Mental Health Unit: Physical Examination 44 year old male presents today with complaints of nicotine craving in active withdrawal as he is a pack a day cigarette smoker for 20 years and is also experiencing insomnia sleeping only 3-4 hours of sleep each night for years. He reports his years of insomnia is what turned him to abuse alcohol and marijuana. He has significant medical history of anxiety, major depression, asthma, essential hypertension, alcohol hepatitis, chronic back pain, nicotine dependence, diverticulitis, and GI bleed. He is inpatient mental health unit for suicidal ideation and alcohol withdrawal. Home Medications Scheduled Amlodipine Besylate (Amlodipine Besylate) 5 Mg Tablet, 5 MG PO BID Clonidine Hcl (Clonidine HCl) 0.1 Mg Tablet, 0.1 MG PO Q6H Folic Acid (Folic Acid) 1 Mg Tablet, 1 MG PO DAILY Multivitamins (Thera M Plus Tablet) 1 Each Tablet, 1 TAB PO DAILY Nicotine (Nicotine Patch) 21 Mg Patch.td24, 1 PATCH TD DAILY Pantoprazole Sodium (Pantoprazole Sodium) 40 Mg Tablet.dr, 40 MG PO BID Sertraline HCl (Sertraline HCl) 50 Mg Tablet, 150 MG PO DAILY for mood Sucralfate (Sucralfate) 1 Gm/10 Ml Oral.susp, 1 GM PO ACHS Thiamine Hcl (Vitamin B-1) 100 Mg Tablet, 100 MG PO BID Scheduled PRN Trazodone HCl (Trazodone HCl) 100 Mg Tablet, 100 MG PO QHSP PRN for INSOMNIA Allergies Coded Allergies: No Known Allergies (Unverified , 06/03/19) Past Medical History Medical History See HPI Surgical History Tonsillectomy, Appendectomy, Abscess drained right finger Family History Significant Family History: Diabetes (mom and dad), Hypertension (mom and dad) Social History * Smoker: current smoker, cigarettes Alcohol: heavy Drugs: marijuana, prescription drugs Psychosocial History: Anxiety, Decreased mood, Rodri SI and HI, Depression, Emotional problems A-FIB/CHADSVASC A-FIB History Current/History of A-Fib/PAF?: No Review of Systems Constitutional: Reports: Fatigue; Denies: Chills, Fever, Malaise, Night Sweats, Weakness, Weight Loss, Lethargy, Other Eyes: Denies: Pain, Vision change, Conjunctivae inflammation, Eyelid inflammation, Redness, Other ENT: Reports: Head Aches; Denies: Ear Pain, Dysphagia, Sinus Congestion, Post Nasal Drip, Sore Throat, Epistaxis, Other Symptoms Skin: Denies: Rash, Lesions, Jaundice, Bruising, Itching, Dry, Breakdown, Nail Changes, Other Pulmonary: Reports: Cough Cardiovascular: Denies: Chest Pain, Palpitations, Orthopnea, Paroxysmal Noc. Dyspnea, Edema, Lt Headedness, Other Symptoms Gastrointestinal: Denies: Nausea, Vomiting, Abdominal Pain, Diarrhea, Constipation, Melena, Hematochezia, Other Symptoms Genitourinary: Denies: Dysuria, Frequency, Incontinence, Hematuria, Retention, Other Symptoms Hematologic: Denies: Bruising, Bleeding Excessively, Petecchia, Purpura, Enlarged Lymph Nodes, Other Hematologic Endocrine: Denies: Polydipsia, Polyphagia, Polyuria, Heat Intolerance, Cold Intolerance, Other Endocrine Sx Musculoskeletal: Denies: Neck Pain, Back Pain, Shoulder Pain, Arm Pain, Hand Pain, Leg Pain, Foot Pain, Joint Pain, Muscle Pain, Spasms, Other Symptoms Psych: Reports: Anxiety, Depression Physical Examination General Exam: Positive: Alert, Cooperative, Mild Distress Eye Exam: Positive: PERRLA, Conjunctiva & lids normal, Sclera icteric ENT Exam: Positive: Atraumatic, Mucous membr. moist/pink, Pharynx Normal, Tongue Midline, Nares Patent, Pinna Normal Neck Exam: Positive: Supple, +2 carotid pulse wo bruit Chest Exam: Positive: Clear to auscultation, Normal air movement Heart Exam: Positive: Rate Normal, Regular Rhythm, Normal S1, Normal S2 Abdomen Exam: Positive: Normal bowel sounds, Soft Extremity Exam: Positive: Normal pulses Skin Exam: Positive: Nl turgor and temperature Neuro Exam: Positive: Normal Gait, Normal Speech, Strength at 5/5 X4 ext, Normal Tone, Cranial Nerves 3-12 NL Psych Exam: Positive: Anxiety (shaking his feet from side to side during interview and physical exam), Oriented x 3 Vital Signs Vital Signs Date Time Temp Pulse Resp B/P (MAP) Pulse Ox O2 Delivery O2 Flow Rate FiO2 06/07/19 06:42 97.3 69 14 130/85 (100) 06/06/19 23:10 97 Room Air Problems (1) Suicidal ideation Status: Acute Response to Treatment: Progressing Discussed With: Patient Problem Text: 44 year old male presents today with complaints of nicotine craving in active withdrawal as he is a pack a day cigarette smoker for 20 years and is also experiencing insomnia sleeping only 3-4 hours of sleep each night for years. He reports his years of insomnia is what turned him to abuse alcohol and marijuana. Suicidal ideation with alcohol withdrawal-acute Plan Continue with Mental health recommendations and treatment plan of care Essential Hypertension-Chronic Monitor vital signs Continue taking blood pressure medications Diet low salt/low fat Walk daily Anxiety with Depression-Chronic Continue treatment plan per Inpatient mental health Insomnia-Chronic Continue taking Trazodone per Mental health treatment plan. If does not work may try Melatonin 5 mg or Equivalent with 25-50 mg of Benadryl as needed at bedtime Calming music if available-waterfalls, ocean and or classical Nicotine dependence/withdrawal-chronic Nicotine patch 21 mcg/ daily topical Prognosis: Good-Medically stable DVT Prophylaxis: Low Risk patient is ambulatory Discharge: Pending on Inpatient Mental Health Psychiatrist Plan / VTE VTE Prophylaxis Ordered?: No VTE Exclusion Mechanical Proph: Low Risk for VTE VTE Exclusion Pharmacological: At Low Risk for VTE Plan Diet: Continue Current Activity: Continue Current Anticipated Discharge: Psych (Dependent of Inpatient Mental Health Unit) RENEE MCINTOSH Jun 07, 2019 08:55
[2019-06-07] MEDS: NICOTINE 21MG/24HR 1 EA TRANSDERMAL TD SCH (09:00)
[2019-06-07 10:00] VITALS: BP 130/85
--- NOTE | 2019-06-07 10:11 | MHHPEPDOC ---
General Date Of Admission: Jun 06, 2019 Legal Status: 9.39 Chief Complaint "I'm depressed." History of Present Illness HISTORY OF THE PRESENT ILLNESS: Patient is a 44 -year-old , male, who was seen by Dr. Brunner while on medical floor for alcohol withdrawal treatment for thoughts of SI and transferred IM when medically cleared. Per Dr. Brunner's consult note: "He is 44 years old, single, was recently engaged, has an 8-year-old son, who he does not have direct access to. I have been asked to see him by Dr. Delgado, hospitalist, as the patient has been depressed and has been talking of taking his own life. The chart is reviewed. Patient is interviewed, and also spoke with his parents, who I spoke with them separate from the patient, with his permission. He says he has had long struggles with depression and without alcohol dependence, and has been in various treatments of sorts, none recently, has attended treatment some time last year, and says there was a point a few years ago when he was free of alcohol for about a year. The last he was free of alcohol for 2-3 weeks was sometime this summer. Otherwise, has been drinking regularly, daily, and that increased after the breakup of his relationship with his finance a couple of weeks ago. Says he felt fairly depressed, hopeless, despondent, alcohol intake increased. Says had been thinking of taking his own life, wanted to drink himself to , says a friend found out, and came to visit. Says she would walk in and actually ask "are you still alive". These are his words. He says his mother was then informed, she visited, just a few days ago, and was the persuaded by them to seek help, and his mother brought him to the hospital. He has been admitted by the hospitalists to address alcohol withdrawal, mother had indicated that the patient had been vomiting, and had passed blood as well, prior to coming in. Patient says continues feeling depressed, is unsure if he would take his own life, but suggests he wishes to , acknowledges that his picking up alcohol again is quite likely without help. Says unable to see his son, who is 8, says this is court ordered, and that he would need to be in treatment for him to get visitations back, also suggests that he feels that the local material preparation worker is somehow against him, and that the material preparation worker would "come up with something else". These are his words, in order for him not to see his son. Says he used to see his son till last year, there are some questions regarding child support, and he ended up in prison, has no charges pending now. Says when free of alcohol, remains depressed and gets anxious as well, with poor sleep, poor appetite, poor concentration. He says he has never admitted to inpatient psychiatry, has been on antidepressants, and is currently on sertraline at 100 mg, also taking buspirone 10 mg three times a day. Says he has seen outpatient psychiatry, but suggests this was quite a while back. Collateral information from parents suggests longstanding struggle with alcohol, and depression as well, and he has talked in terms of suicide off and on for quite a while." Psychiatric Review of Systems Depression (2 or more weeks): depressed mood, feelings of worthlesness, suicidal thoughts Alyson (4 or more days of): denies Psychosis: denies PTSD: denies Anxiety: situational anxiety, stressor related anxiety Anxiety/ 6 months or more of: restlessness, keyed up, difficulty concentrating Past Psychiatric History Previous Psychiatric Diagnosis: alcohol use d/o, depression Previous Psychiatric Admissions: denies Suicide Attempts: denies Psychiatric Follow-up: none currently, PCP prescribes meds Psychiatric medications: sertraline at 100 mg, buspirone 10 mg three times a day. Past Medical History Medical Problems denies Head Injury: No Seizures: No Hospitalizations: No Surgeries: No Family Medical/Psychiatric HX Medical Problems noncontributory Psychiatric Disorders: No Addiction: Yes (youngest brother, grandparents - alcohol) Suicide Attemps/Completions: No Addiction History nicotine, alcohol (longstanding history of alcohol abuse and would like to go to rehab), other (history of cannabis and prescription pill use in the past) Social History Childhood: born and raised in [place], 2 parent home, mother still alive and close with, 2 brothers, good childhood Abuse/Trauma:denies Current Living Situation: lives alone in [place], plans to live with mother before and after rehab for support Education: high school grad Employment: unemployed. Social Support: mother Legal: denies. Marital: single, never , 8y/o son with ex-girlfriend he is court ordered to not seen (refer to HPI) Mental Status Examination General Appearance: well groomed, appears stated age, hospital scubs/clothing Build: average Demeanor: average Eye Contact: average Activity: average, anxious Behavior: cooperative Speech: clear, normal volume, reg/rate,rhythm,volume Mood: euthymic, anxious Mood "alright" Affect: full, appropriate, congruent, anxious Thought Process: logical/linear, depressed, intact Thought Content (Delusions): none reported, denies SI, HI, AVH Thought Content (Other): none reported, appropriate Thought Content (Aggressive): none reported Perception (Hallucinations): none reported Perception (Other): none reported Cognition (Impairment of): none reported Cognition(Intelligence Est.): average Oriented: Awake, Alert, Oriented times three Insight: fair Judgment: Fair Psychosis: Denies Diagnoses Depression Unspecified R/O substance induced depression secondary alcohol alcohol use d/o severe A-FIB/CHADSVASC A-FIB History Current/History of A-Fib/PAF?: No Assessment Pt seen and states he feels "alright" but didn't sleep last night due to bright light shinning into window from parking lot. States overall his mood is "better" and even more so after speaking with his mother just to say "HI." States he became depressed with passive SI self medicating with alcohol due to having psychosocial stressors "happening all at once," but states mother is supportive and plans to live with her before and after going to rehab for alcohol in [place]. Agreeable to rehab assessment process being started here. Is very motivated as he wants to be able to see his son again, is very close to. Encouraged to put a picture of his son in his pocket to take out every time he has urge to drink and states "that's a great idea" a plans to do. States he's attending groups and finding beneficial. States he's tolerating his zoloft and buspar and feels they're beneficial. Denies alcohol withdrawal. Denies SI/HI, hallucinations, delusions. Feels safe here. Initial Treatment Plan 1. Patient was admitted on a 9.39 status. 2. Complete history was obtained. 3. With patients permission, family will be contacted and database will be expanded. 4. Patients medication regimen will be reviewed and changed accordingly. 5. Patient will be provided with protected environment. 6. Patient will be treated with individual, group, and milieu therapies. 7. Patient will receive supportive psych-education. 8. Discharge planning will commence immediately. 9. Outpatient follow-up treatment will be strongly recommended. 10. The initial treatment plan will focus initially on: * Depression. * Risk for suicide. 11. resume zoloft 100mg daily and buspar 10mg tid. Refer to rehab. ESTIMATED LENGTH OF STAY: 3-5 DAYS. TIME SPENT COUNSELING AND COORDINATING INITIAL CARE: 60 minutes. Vital Signs Vital Signs Date Time Temp Pulse Resp B/P (MAP) Pulse Ox O2 Delivery O2 Flow Rate FiO2 06/07/19 06:42 97.3 69 14 130/85 (100) 06/06/19 23:10 97 Room Air Medications Scheduled Amlodipine Besylate (Amlodipine Besylate) 5 Mg Tablet, 5 MG PO BID Buspirone HCl (Buspirone HCl) 10 Mg Tablet, 10 MG PO TID, (Reported) Clonidine Hcl (Clonidine HCl) 0.1 Mg Tablet, 0.1 MG PO Q6H Folic Acid (Folic Acid) 1 Mg Tablet, 1 MG PO DAILY Multivitamins (Thera M Plus Tablet) 1 Each Tablet, 1 TAB PO DAILY Nicotine (Nicotine Patch) 21 Mg Patch.td24, 1 PATCH TD DAILY Pantoprazole Sodium (Pantoprazole Sodium) 40 Mg Tablet.dr, 40 MG PO BID Sertraline HCl (Sertraline HCl) 100 Mg Tablet, 100 MG PO DAILY, (Reported) Sucralfate (Sucralfate) 1 Gm/10 Ml Oral.susp, 1 GM PO ACHS Thiamine Hcl (Vitamin B-1) 100 Mg Tablet, 100 MG PO BID Allergies Coded Allergies: No Known Allergies (Unverified , 06/03/19) NICK JOHNSON DO Jun 07, 2019 09:23
[2019-06-07] MEDS ORDERED: traZODone 100 MG TAB PO PRN (12:30)
[2019-06-07] MEDS: SERTRALINE HCL 50 MG TAB PO SCH (15:01)
[2019-06-07 18:00] VITALS: BP 137/54
[2019-06-08 07:26] VITALS: BP 137/77
[2019-06-08] MEDS: SERTRALINE HCL 50 MG TAB PO SCH (08:36)
[2019-06-08] MEDS: MULTIVITAMINS/MINERALS THERAP 1 TAB PO SCH (08:36)
[2019-06-08] MEDS: THIAMINE 100 MG TAB PO SCH (08:36)
[2019-06-08] MEDS: FOLIC ACID 1 MG TAB PO SCH (08:36)
[2019-06-08] MEDS: NICOTINE 21MG/24HR 1 EA TRANSDERMAL TD SCH (08:38)
[2019-06-08] MEDS ORDERED: TRAZ10TA PO (08:38)
[2019-06-08] MEDS ORDERED: SERT50TA29 PO (08:38)
--- NOTE | 2019-06-08 08:39 | MHDSPDOC ---
[facility] Discharge Summary Discharge Summary DATE OF ADMISSION: Jun 06, 2019 at 9:24 pm DATE OF DISCHARGE: Jun 08, 2019 DISCHARGE DIAGNOSES: Depression Unspecified R/O substance induced depression secondary alcohol alcohol use d/o severe REASON FOR ADMISSION: Patient is a 44 -year-old , male, who was seen by Dr. Brunner while on medical floor for alcohol withdrawal treatment for thoughts of SI and transferred [facility] when medically cleared. Per Dr. Brunner's consult note: " He is 44 years old, single, was recently engaged, has an 8-year-old son, who he does not have direct access to. I have been asked to see him by Dr. Delgado, hospitalist, as the patient has been depressed and has been talking of taking his own life. The chart is reviewed. Patient is interviewed, and also spoke with his parents, who I spoke with them separate from the patient, with his permission. He says he has had long struggles with depression and without alcohol dependence, and has been in various treatments of sorts, none recently, has attended treatment some time last year, and says there was a point a few years ago when he was free of alcohol for about a year. The last he was free of alcohol for 2-3 weeks was sometime this summer. Otherwise, has been drinking regularly, daily, and that increased after the breakup of his relationship with his finance a couple of weeks ago. Says he felt fairly depressed, hopeless, despondent, alcohol intake increased. Says had been thinking of taking his own life, wanted to drink himself to , says a friend found out, and came to visit. Says she would walk in and actually ask "are you still alive". These are his words. He says his mother was then informed, she visited, just a few days ago, and was the persuaded by them to seek help, and his mother brought him to the hospital. He has been admitted by the hospitalists to address alcohol withdrawal, mother had indicated that the patient had been vomiting, and had passed blood as well, prior to coming in. Patient says continues feeling depressed, is unsure if he would take his own life, but suggests he wishes to , acknowledges that his picking up alcohol again is quite likely without help. Says unable to see his son, who is 8, says this is court ordered, and that he would need to be in treatment for him to get visitations back, also suggests that he feels that the local financial services specialist is somehow against him, and that the financial services specialist would "come up with something else". These are his words, in order for him not to see his son. Says he used to see his son till last year, there are some questions regarding child support, and he ended up in [facility], has no charges pending now. Says when free of alcohol, remains depressed and gets anxious as well, with poor sleep, poor appetite, poor concentration. He says he has never admitted to inpatient psychiatry, has been on antidepressants, and is currently on sertraline at 100 mg, also taking buspirone 10 mg three times a day. Says he has seen outpatient psychiatry, but suggests this was quite a while back. Collateral information from parents suggests longstanding struggle with alcohol, and depression as well, and he has talked in terms of suicide off and on for quite a while." Pt seen and states he feels "alright" but didn't sleep last night due to bright light shinning into window from parking lot. States overall his mood is "better" and even more so after speaking with his mother just to say "HI." States he became depressed with passive SI self medicating with alcohol due to having psychosocial stressors "happening all at once," but states mother is supportive and plans to live with her before and after going to rehab for alcohol in [place]. Agreeable to rehab assessment process being started here. Is very motivated as he wants to be able to see his son again, is very close to. Encouraged to put a picture of his son in his pocket to take out every time he has urge to drink and states "that's a great idea" a plans to do. States he's attending groups and finding beneficial. States he's tolerating his zoloft and buspar and feels they're beneficial. Denies alcohol withdrawal. Denies SI/HI, hallucinations, delusions. Feels safe here. CONSULTANTS INVOLVED: none TREATMENT AND PROGRESS ON THE UNIT : Pt was admitted to [facility], seen for psychiatric assessment and restarted on his outpatient medication zoloft increased to 150mg daily for mood. He was provided trazodone 100mg qhs prn insomnia. Pt found his medications beneficial and tolerated them well. He attended groups daily during his stay. His symptoms improved with treatment. On day of discharge he denied depression, anxiety, insomnia, SI/HI, hallucinations, delusions, alcohol withdrawal symptoms. He was discharged home with mother with follow-up at [facility] and [facility]. Pt working on going to rehab in [place] with his mother.. He felt safe for discharge. DISCHARGE ASSESSMENT: Pt seen and states that his mood is "good" and looking forward to staying with his mother after discharge as she is very supportive. Plans to continue with rehab referral process with his mother and would like to go to rehab in [place]. States his big motivation is his son to get sober. States he slept well last night. Feels he is tolerating his medications and they're beneficial. He is attending groups and finding them helpful. He denies depression, anxiety, insomnia, SI/HI, hallucinations, delusions. Pt feels safe to D/c home with his mother. MENTAL STATUS EXAMINATION ON DISCHARGE: General Appearance: well groomed, appears stated age, hospital scrubs/clothing Build: average Demeanor: average Eye Contact: average Activity: average Behavior: cooperative Speech: clear, normal volume, reg/rate,rhythm,volume Mood: euthymic, full range Mood "good" Affect: full, appropriate, congruent Thought Process: logical/linear, intact Thought Content (Delusions): none reported, denies SI, HI, AVH Thought Content (Other): none reported, appropriate Thought Content (Aggressive): none reported Perception (Hallucinations): none reported Perception (Other): none reported Cognition (Impairment of): none reported Cognition(Intelligence Est.): average Oriented: Awake, Alert, Oriented times three Insight: good Judgment: good Psychosis: Denies MEDICATIONS ON DISCHARGE: zoloft 100mg daily buspar 10mg tid PLAN/FOLLOWUP ARRANGEMENTS: D/c home with follow-up at [facility] and [facility]. Pt wo rking on going to rehab in [place] with his mother. The amount of time spent in the coordination of care for this patient was approximately 30 minutes. Vital Signs/I&Os Vital Signs Date Time Temp Pulse Resp B/P (MAP) Pulse Ox O2 Delivery O2 Flow Rate FiO2 06/08/19 07:26 97.9 67 14 137/77 (97) 06/06/19 23:10 97 Room Air Medications Scheduled Amlodipine Besylate (Amlodipine Besylate) 5 Mg Tablet, 5 MG PO BID, #10 Buspirone HCl (Buspirone HCl) 10 Mg Tablet, 10 MG PO TID, (Reported) Clonidine Hcl (Clonidine HCl) 0.1 Mg Tablet, 0.1 MG PO Q6H for 10 Days, #14 Folic Acid (Folic Acid) 1 Mg Tablet, 1 MG PO DAILY, #30 Multivitamins (Thera M Plus Tablet) 1 Each Tablet, 1 TAB PO DAILY for 28 Days, #30 Nicotine (Nicotine Patch) 21 Mg Patch.td24, 1 PATCH TD DAILY, #1 Pantoprazole Sodium (Pantoprazole Sodium) 40 Mg Tablet.dr, 40 MG PO BID for 28 Days, #30 Sertraline HCl (Sertraline HCl) 100 Mg Tablet, 100 MG PO DAILY, (Reported) Sucralfate (Sucralfate) 1 Gm/10 Ml Oral.susp, 1 GM PO ACHS for 28 Days, #30 Thiamine Hcl (Vitamin B-1) 100 Mg Tablet, 100 MG PO BID for 30 Days, #30 Allergies Coded Allergies: No Known Allergies (Unverified , 06/03/19) NICK JOHNSON DO Jun 08, 2019 8:39 am
== END 2019-06-08 13:15 | disposition home or self-care (01) | DRG 754 ==
LOC: M PSY 21:24
PROVIDERS: ADMIT Psychiatry & Neurology Psychiatry; ATTEND Psychiatry & Neurology Psychiatry
DX: F32.9 Major depressive disorder, single episode, unspecified (principal); F10.24 Alcohol dependence with alcohol-induced mood disorder; Z79.899 Other long term (current) drug therapy; F17.213 Nicotine dependence, cigarettes, with withdrawal; G47.00 Insomnia, unspecified; J45.909 Unspecified asthma, uncomplicated; I10 Essential (primary) hypertension

== ENCOUNTER 2021-07-15 21:23 | Inpatient (IN) | payer OTHER ==
[~2021-07-15] VITALS: Ht 180.3 cm; Wt 89.1 kg
[~2021-07-15 21:23] MED LIST changes: +AMLO1TAB24 PO; -AMLO5TAB6 PO; +PANT40TA29 PO; -PANT40TA3 PO; +SERT50TA29 PO; -SUCR10SS PO; +SUCR1ORA2 PO; +TRAZ1TAB12 PO
--- OUTSIDE RECORDS SUMMARY | 2021-07-15 21:27 | CCD ---
Author Author [facility] Organization [facility] Address Unknown Phone Unavailable Care Team Providers Care Handy Worker Name Role Phone FLAKITO, A EMILY COLLINS Unavailable Unavailable PARSHALL, A EMILY COLLINS Unavailable Unavailable PARSHALL, A EMILY COLLINS Unavailable Unavailable PARSHALL, A EMILY COLLINS Unavailable Unavailable PARSHALL, A EMILY COLLINS Unavailable Unavailable PARSHALL, A EMILY COLLINS Unavailable Unavailable PARSHALL, A EMILY COLLINS Unavailable Unavailable PARSHALL, A EMILY COLLINS Unavailable Unavailable PARSHALL, A EMILY COLLINS Unavailable Unavailable PARSHALL, A EMILY COLLINS Unavailable Unavailable PARSHALL, A EMILY COLLINS Unavailable Unavailable PARSHALL, A EMILY COLLINS Unavailable Unavailable PARSHALL, A EMILY COLLINS Unavailable Unavailable PARSHALL, A EMILY COLLINS Unavailable Unavailable PARSHALL, A EMILY COLLINS Unavailable Unavailable PARSHALL, A EMILY CLOLINS Unavailable Unavailable PARSHALL, A EMILY COLLINS Unavailable Unavailable PARSHALL, A EMILY COLLINS Unavailable Unavailable PARSHALL, A EMILY COLLINS Unavailable Unavailable PARSHALL, A EMILY COLLINS Unavailable Unavailable PARSHALL, A EMILY COLLINS Unavailable Unavailable PARSHALL, A EMILY COLLINS Unavailable Unavailable PARSHALL, A EMILY COLLINS Unavailable Unavailable PARSHALL, A EMILY COLLINS Unavailable Unavailable PARSHALL, A EMILY COLLINS Unavailable Unavailable PARSHALL, A EMILY MD Unavailable Unavailable PARSHALL, A EMILY MD Unavailable Unavailable PARSHALL, A EMILY MD Unavailable Unavailable PARSHALL, A EMILY MD Unavailable Unavailable PARSHALL, A EMILY MD Unavailable Unavailable PARSHALL, A EMILY MD Unavailable Unavailable PARSHALL, A EMILY MD Unavailable Unavailable PARSHALL, A EMILY MD Unavailable Unavailable PARSHALL, A EMILY MD Unavailable Unavailable Adam Giraldo MD Unavailable Unavailable Adam Giraldo MD Unavailable Unavailable Adam Giraldo MD Unavailable Unavailable Adam Giraldo MD Unavailable Unavailable Adam Giraldo MD Unavailable Unavailable Adam Giraldo MD Unavailable Unavailable Adam Giraldo MD Unavailable Unavailable Adam Giraldo MD Unavailable Unavailable Adam Giraldo MD Unavailable Unavailable Adam Giraldo MD Unavailable Unavailable Adam Giraldo MD Unavailable Unavailable MCELHERAN, CHRISTI PA Unavailable Unavailable MCELHERAN, CHRISTI PA Unavailable Unavailable MCELHERAN, CHRISTI PA Unavailable Unavailable MCELHERAN, CHRISTI PA Unavailable Unavailable MCELHERAN, CHRISTI PA Unavailable Unavailable MCELHERAN, CHRISTI PA Unavailable Unavailable MCELHERAN, CHRISTI PA Unavailable Unavailable MCELHERAN, CHRISTI PA Unavailable Unavailable MCELHERAN, CHRISTI PA Unavailable Unavailable MCELHERAN, CHRISTI PA Unavailable Unavailable MCELHERAN, CHRISTI PA Unavailable Unavailable MCELHERAN, CHRISTI PA Unavailable Unavailable MCELHERAN, CHRISTI PA Unavailable Unavailable MCELHERAN, CHRISTI PA Unavailable Unavailable MCELHERAN, CHRISTI PA Unavailable Unavailable MCELHERAN, CHRISTI PA Unavailable Unavailable MCELHERAN, CHRISTI PA Unavailable Unavailable MCELHERAN, CHRISTI PA Unavailable Unavailable MCELHERAN, CHRISTI PA Unavailable Unavailable MCELHERAN, CHRISTI PA Unavailable Unavailable MCELHERAN, CHRISTI PA Unavailable Unavailable MCELHERAN, CHRISTI PA Unavailable Unavailable MCELHERAN, CHRISTI PA Unavailable Unavailable MCELHERAN, CHRISTI PA Unavailable Unavailable MCELHERAN, CHRISTI PA Unavailable Unavailable MCELHERAN, CHRISTI PA Unavailable Unavailable MCELHERAN, CHRISTI PA Unavailable Unavailable MCELHERAN, CHRISTI PA Unavailable Unavailable MCELHERAN, CHRISTI PA Unavailable Unavailable Fang Walsh MD Unavailable Unavailable Fang Walsh MD Unavailable Unavailable Fang Walsh MD Unavailable Unavailable Yumiko Magallanes MD Unavailable Unavailable Yumiko Magallanes MD Unavailable Unavailable Yumiko Magallanes MD Unavailable Unavailable Yumiko Magallanes MD Unavailable Unavailable Yumiko Magallanes MD Unavailable Unavailable Magallanes, Yumiko Brown MD Unavailable Unavailable Phani, A Elle AMBULATORY ANALYST Unavailable Unavailable Phani, A Elle AMBULATORY ANALYST Unavailable Unavailable Phani, A Elle AMBULATORY ANALYST Unavailable Unavailable Phani, A Elle AMBULATORY ANALYST Unavailable Unavailable Phani, A Elle AMBULATORY ANALYST Unavailable Unavailable Phani, A Elle AMBULATORY ANALYST Unavailable Unavailable Phani, A Elle AMBULATORY ANALYST Unavailable Unavailable Phani, A Elle AMBULATORY ANALYST Unavailable Unavailable Phani, A Elle AMBULATORY ANALYST Unavailable Unavailable Phani, A Elle AMBULATORY ANALYST Unavailable Unavailable Phani, A Elle AMBULATORY ANALYST Unavailable Unavailable Phani, A Elle AMBULATORY ANALYST Unavailable Unavailable Phani, A Elle AMBULATORY ANALYST Unavailable Unavailable Phani, A Elle AMBULATORY ANALYST Unavailable Unavailable Phani, A Elle AMBULATORY ANALYST Unavailable Unavailable Phani, A Elle AMBULATORY ANALYST Unavailable Unavailable Phani, A Elle AMBULATORY ANALYST Unavailable Unavailable Phani, A Elle AMBULATORY ANALYST Unavailable Unavailable Phani, A Elle AMBULATORY ANALYST Unavailable Unavailable Phani, A Elle AMBULATORY ANALYST Unavailable Unavailable Phani, A Elle AMBULATORY ANALYST Unavailable Unavailable Phani, A Elle AMBULATORY ANALYST Unavailable Unavailable Phani, A Elle AMBULATORY ANALYST Unavailable Unavailable Phani, A Elle AMBULATORY ANALYST Unavailable Unavailable Phani, A Elle AMBULATORY ANALYST Unavailable Unavailable Phani, A Elle AMBULATORY ANALYST Unavailable Unavailable Phani, A Elle AMBULATORY ANALYST Unavailable Unavailable Phani, A Elle AMBULATORY ANALYST Unavailable Unavailable Phani, A Elle AMBULATORY ANALYST Unavailable Unavailable Phani, A Elle AMBULATORY ANALYST Unavailable Unavailable Phani, A Elle AMBULATORY ANALYST Unavailable Unavailable Phani, A Elle AMBULATORY ANALYST Unavailable Unavailable Phani, A Elle AMBULATORY ANALYST Unavailable Unavailable Phani, A Elle AMBULATORY ANALYST Unavailable Unavailable Phani, A Elle AMBULATORY ANALYST Unavailable Unavailable Phani, A Elle AMBULATORY ANALYST Unavailable Unavailable Phani, A Elle AMBULATORY ANALYST Unavailable Unavailable Phani, A Elle AMBULATORY ANALYST Unavailable Unavailable Phani, A Elle AMBULATORY ANALYST Unavailable Unavailable Phani, A Elle AMBULATORY ANALYST Unavailable Unavailable Phani, A Elle AMBULATORY ANALYST Unavailable Unavailable Phani, A Elle AMBULATORY ANALYST Unavailable Unavailable Phani, A Elle AMBULATORY ANALYST Unavailable Unavailable Phani, A Elle AMBULATORY ANALYST Unavailable Unavailable Phani, A Elle AMBULATORY ANALYST Unavailable Unavailable Phani, A Elle AMBULATORY ANALYST Unavailable Unavailable Phani, A Elle AMBULATORY ANALYST Unavailable Unavailable Phani, A Elle AMBULATORY ANALYST Unavailable Unavailable Phani, A Elle AMBULATORY ANALYST Unavailable Unavailable PRECIOUS, ORMI MD Unavailable Unavailable PRECIOUS, ROMI MD Unavailable Unavailable PRECIOUS, ROMI MD Unavailable Unavailable PRECIOUS, ROMI MD Unavailable Unavailable PRECIOUS, ROMI MD Unavailable Unavailable PRECIOUS, ROMI MD Unavailable Unavailable PRECIOUS, ROMI MD Unavailable Unavailable PRECIOUS, ROMI MD Unavailable Unavailable PRECIOUS, ROMI MD Unavailable Unavailable PRECIOUS, ROMI MD Unavailable Unavailable Re-disclosure Warning The records that you are about to access may contain information from federally-assisted alcohol or drug abuse programs. If such information is present, then the following federally mandated warning applies: This information has been disclosed to you from records protected by federal confidentiality rules (42 CFR part 2). The federal rules prohibit you from making any further disclosure of this information unless further disclosure is expressly permitted by the written consent of the person to whom it pertains or as otherwise permitted by 42 CFR part 2. A general authorization for the release of medical or other information is NOT sufficient for this purpose. The Federal rules restrict any use of the information to criminally investigate or prosecute any alcohol or drug abuse patient.The records that you are about to access may contain highly sensitive health information, the redisclosure of which is protected by Article 27-F of the [facility] Public Health law. If you continue you may have access to information: Regarding HIV / AIDS; Provided by facilities licensed or operated by the [facility] Office of Mental Health; or Provided by the [facility] Office for People With Developmental Disabilities. If such information is present, then the following [facility] mandated warning applies: This information has been disclosed to you from confidential records which are protected by state law. State law prohibits you from making any further disclosure of this information without the specific written consent of the person to whom it pertains, or as otherwise permitted by law. Any unauthorized further disclosure in violation of state law may result in a fine or nursing home sentence or both. A general authorization for the release of medical or other information is NOT sufficient authorization for further disc losure. Allergies and Adverse Reactions Type Description Substance Reaction Status Data Source(s ) Drug allergy No Known Drug Allergies No Known Drug Allergies [facility] Encounters Encounter Providers Location Date Indications Data Source(s ) Emergency Attender: ROMI Elkins nder: EMILY ABRHAAM MDAdmitter: ROMI MEYERS MD 02/15/2021 02:10:00 PM EDT - 02/17/2021 03:05:00 PM EDT DIVERTICULITIS [facility] DIVERTICULITIS Patient discharged. Outpatient Attender: Kevin Magallanes MDReferrer: Elle gastelum NP 12/12/2020 10:40:00 AM EDT - 12/12/2020 11:45:00 AM EDT [facility] Outpatient Attender: Kevin Magallanse MD 12/07/2020 05: 00:00 PM EDT ACUTE MEDIAL MENISCUS TEAR [facility] ACUTE MEDIAL MENISCUS TEAR Outpatient Attender: Kevin Magallanes MDReferrer: Elle gastelum NP 12/06/2020 09:19:00 AM EDT - 12/06/2020 10:01:00 AM EDT [facility] Outpatient Attender: Jose Giraldo MD Physical Therapy 12/2020 01:00:00 PM EDT [facility] ([facility] ) Emergency Attender: Fang Walsh MDConsultant: CHRISTI MCNULTY 10/28/2020 09:26:00 PM EDT - 10/29/2020 12:43:00 AM EDT FALL,KNEE PAIN [facility] FALL,KNEE PAIN Patient discharged. Functional Status Medications Medication Brand Name Start Date Product Form Dose Route Admi nistrative Instructions Pharmacy Instructions Status Indications Reaction Description Data Source(s) Ciprofloxacin 500 MG Oral Tablet Ciprofloxacin Hcl (Ci pro) 500 mg tablet Ciprofloxacin Hcl (Cipro) 500 mg tablet 02/17/2021 02:06:37 PM EDT 50 0 MG active [facility] Metronidazole 500 MG Oral Tablet Metronidazole 02/17/2021 02:05:39 PM EDT 500 MG active [facility] Metronidazole 500 MG Oral Tablet METRONIDAZOLE 02/17/2021 12:0 0:00 AM EDT tablet 10 TAKE ONE TABLET BY MOUTH TWICE A DAY WITH FOOD - AVOID ALCOHOL TAKE ONE TABLET BY MOUTH TWICE A DAY WITH FOOD - AVOID ALCOHOL SOLD: 02/18/2021 [facility] 500 mg 02/17/2021 12:00:00 AM EDT tablet 10 TAKE ONE TABLET BY MOUTH TWICE A DAY WITH FOOD TAKE ONE TABLET BY MOUTH TWICE A DAY WITH FOOD SOLD: 02/18/2021 [facility] [place] (No Known Home Medications) 12/06/2020 09:27:07 AM EDT active [facility] Thiamine 100 MG Oral Tablet Thiamine Hcl (Vitamin B1) Thiami ne Hcl (Vitamin B1) 05/01/2019 05:55:10 PM EDT 100 MG completed [facility] Insurance Providers Payer name Policy type / Coverage type Policy ID Covered democrat ID Covered democrat's relationship to quintero Policy [employer] Plan Information [facility] MEDICAID [id number] [facility] 7 [id number] SANA [id number] SP [id number] [address] [facility] O [id number] S [id number] Problems, Conditions, and Diagnoses No Information Surgeries/Procedures Procedure Description Date Indications Data Source(s) Computed tomography of abdomen and pelvis with contrast (pro cedure) 02/15/2021 03:42:00 PM EDT [facility] SARS-CoV-2 Rapid RNA (RT-PCR) 02/15/2021 12:00:00 AM E DT [facility] Blood culture for bacteria, including anaerobic screen (proc edure) 02/15/2021 12:00:00 AM EDT [facility] MRI Knee Left w/o 12/07/2020 05:56:00 PM EDT [facility] RADIOLOGIC EXAMINATION KNEE 1/2 VIEWS 11/19/2020 12:00 :00 AM EDT [facility] ([facility]) X-ray of left knee (procedure) 10/28/2020 10:12:00 PM EDT [facility] X-ray of left knee (procedure) 10/28/2020 10:12:00 PM EDT [facility] Results ID Date Data Source [id number] 02/17/2021 10:34:00 AM EDT [facility] Name: CONIOSVALDO : 1975 Age: 45 MR#: [id number] Admit Date: 02/15/21 Provider: Ni Sam NP Room #: 298 Consulting Provider: Dictation Date: 02/17/21 Discharge Summary Discharge Summary Problem List (1) Diverticulitis: Status: Acute Problem priority:: Primary Diagnosis Code(s): K57.92 - Diverticulitis of intestine, part unspecified, without perforation or abscess without bleeding Admit Info/Diagnoses/Course Date of service:: 02/17/21 Admission Information: Patient, CHRISTI NEWBERRY, a 45 year old M, admitted on 02/15/21 18:20 by Romi Meyers MD for DIVERTICULITIS Family Elle Emanuel 45-year-old male patient presented to the emergency room on 02-15-21 with complaints of diffuse abdominal pain that was worsening. Pain present for a total of 4 days. He also verbalized associated nausea/vomiting for 24 hours. He denied specific aggravating factor or relieving factors. Patient was found to be afebrile in the emergency room and did have stable vital signs. He did have a CT of the abdomen which was notable for mild diverticulitis in the sigmoid colon without perforation or abscess, and a fatty liver. He was started on IV normal saline and was givenIV antibiotics of Cipro and Flagyl. Also given as needed IV Zofran for nausea and hospitalist service was consulted for potential admission. Patient was seen in the emergency room at the bedside byDr. MEYERS, patient admitted to the [facility] with primary diagnosis of diverticulitis. Initial labresults from 02/15/2021 were notable for elevated white blood cell count of 11.7, potassium level decreased to 3.2 L, slight elevation in total bilirubin at 2.3, AST of 72, and ALT of 66. Initially on admission there is some record that patient had suspected history of alcohol abuse. Patient did verify that at 1 point he had been hospitalized for alcohol withdrawal. She advises that he does continue to use alcohol on a weekly basis when he is not working, and that his last alcohol intake was prior to 02/11/21. Patient was placed as n.p.o. and IV Cipro and Flagyl were continued along with normal saline IV. On, patient advised that his abdominal pain had almost completely resolved and he had no episodes of nausea/vomiting. Patient was started on clear liquid diet which he tolerated without return of abdominal pain, fever, nausea/vomiting, or diarrhea. Patient was found to have a low magnesium level on this day, and was supplemented with 2 g of magnesium IV x1 dose. Patient evaluated this morning by this practitioner and was seen at the bedside. Patient had continued to tolerate clear liquids without return of abdominal symptoms and his diet was advanced to full liquids. His IV Cipro and Flagyl have been continued up until this point. Dr. Meyers has been consulted regarding patient's care, and patient is planned to be discharged this afternoon if he continues to tolerate a full liquid diet. Patient will be discharged home with prescriptions forCipro and Flagyl orally. He will be encouraged to have follow-up appointment with his primary care physician in the office. Also stressed to the patient were the health risks of continuing alcohol abuse/heavy use. And also stressed were the health risks related to continued smoking. Patient wascounseled today regarding smoking cessation and he did decline having medications prescribed for smoking cessation. Discharge Date: 02/17/21 Most Recent Lab Results: 02/17/21 07:09 02/17/21 07:09 Laboratory Results Last 24 hours 02/17/21 07:09: WBC 8.7, RBC 4.71, Hgb 15.9, Hct 45.9, MCV 98 H, MCH 34 H, MCHC 35, RDW 13, Plt Count 138, MPV 10.4, Immature Gran % (Auto) 0.1, Neut % (Auto) 60.4, Lymph % (Auto) 28.1, [place] % (Auto) 8.7, Eos % (Auto) 2.4, Baso % (Auto) 0.3 L, Lymph # (Auto) 2.5, Abs Immat Gran (auto) 0.0, Add Manual Diff No, Absolute Neutrophils 5.3, Monocytes # 0.8, Absolute Eosinophils 0.2, Absolute Basophils 0.0 02/17/21 07:09: Sodium 143, Potassium 3.5, Chloride 110 H, Carbon Dioxide 28, Anion Gap 9, BUN 5 L, Creatinine 0.7, GFR Calculation Greater than 60, Glucose 99, Calcium 8.2 L, Total Bilirubin 2.5 H, AST 53 H, ALT 47, Alkaline Phosphatase 86, Serum Total Protein 6.4, Albumin 3.3 Microbiology 02/15/21 18:15 Venous blood Blood Culture - Preliminary NO GROWTH AFTER 24 HOURS 02/15/21 18:15 Venous blood Blood Culture - Preliminary NO GROWTH AFTER 24 HOURS 02/15/21 18:25 Nasopharyngeal SARS-CoV-2 Rapid RNA (RT-PCR) - Final Sars-Cov-2 Not Detected Influenza A Not Detected Influenza B Not Detected RSV Not Detected Hospital Course: Initial impression: diverticulitis. Patient was n.p.o., initially, and then advance to a clear liquid diet which he tolerated without fever/abdominal pain/nausea or vomiting. IV hydration with normal saline and Cipro and Flagyl given IV piggyback. Patient monitored for abdominal symptoms, electrolyte imbalance, alcohol withdrawal symptoms, and treated for pain and nausea. Diet increase to full liquid diet on 02/17/2021. Patient has tolerated this without complaints of abdominal pain, fever, diarrhea, nausea/vomiting. Has continued IV antibiotics with Cipro and Flagyl. Labs reviewed for electrolyte imbalance and patient monitored for alcohol withdrawal. Plan is to discharge patient home on full/clear liquids for 3 days and ask patient to continue oral dosing of Cipro and Flagyl. Patient is asked to follow-up with primary care physicianin the of [place] and to avoid alcohol abuse/heavy alcohol use. Patient is also counseled regarding smoking cessation. Review of Systems General: Denies Fever, Chills, Night Sweats, Fatigue or Appetite HEENT: Denies Headaches, Eye Pain, Ear Pain, Post Nasal Drip or Sore Throat Endocrine: Reports No Symptoms/Complaints Cardiovascular: Denies Chest Pain, Palpitations, Paroxysmal Noc. Dyspnea or Edema Pulmonary: Denies Dyspnea, Cough or Pleuritic Chest Pain Gastrointestinal: Denies nausea, vomiting, abdominal pain, diarrhea, constipation, frequent belching, hematochezia, coffee grounds emesis or hx of jaundice Genitourinary: Denies Dysuria, Frequency, Incontinence or Hematuria Musculoskeletal: Denies Muscle Pain, Joint Pain, Shoulder Pain, Arm Pain, Back Pain, Thigh Cramps, Muscle Weakness, Muscle Tenderness, Joint Swelling or Sciatica Neurological: Denies Weakness, Numbness, Change in speech, Confusion or Seizures Psych: Denies anxiety, depression, auditory hallucinations, visual hallucinations, suicidal thoughts, hopelessness, helplessness, change in concentration or feelings of guilt Hematological/Lymphatic: Denies easy bleeding, easy bruising, swollen glands, petechiae, lympathadenopathy or purpura Allergic/Immunologic: Denies rash, hives, fever, night sweats, wheals or flare Exam Condition Vital Signs - Most Recent: Last Vital Signs Temp 98.6 F 02/17/21 09:00 Pulse 60 02/17/21 09:00 Resp 16 02/17/21 09:00 BP 139/96 02/17/21 09:00 Pulse Ox 95 02/17/21 09:00 Ht Wt BMI Current H eight 6 ft Current Weight 215 lb 3 oz Body Mass Index (BMI) 29.2 Body Mass Index (BMI) Overweight Classification General: positive Alert, positive Oriented x3, positive Cooperative and positive No acute distress HEENT: Atraumatic, PERRLA, EOMI and Mucous membr. moist/pink Neck: Supple and No JVD Lungs: Clear to auscultation Cardiovascular: Regular rate, Normal S1, Normal S2 and No murmurs; negative for Gallops or Rubs Abdomen: Normal bowel sounds and Soft; negative for Tenderness, Hepatospenomegaly or Masses Extremities: No clubbing, No cyanosis, No edema, Normal pulses and No tenderness/swelling Skin: Skin warm and dry, Mucus membranes moist and Color normal for race; negative for Rash or Wound Neurological: Normal gait, Normal speech, Strength at 5/5 X4 ext, Normal tone and Cranial nerves 3-12 NL Psych/Mental Status: Mental status NL and Mood NL Free Text/Narrative:: 1. Diverticulitis Oral dosing of Cipro and Flagyl as prescribed Clear/full liquids at home for 3 days, then may advance diet to general diet as tolerated Tylenol as directed on the bottle for pain Follow-up with primary care physician in the office 2. Suspect history of alcohol abuse Patient cautioned against heavy or overuse of alcohol. Systemic symptoms/illness related to heavy alcohol use/abuse discussed with patient at length Patient advised that there are support groups such as Alcoholics Anonymous and [employer] available if he feels that these are indicated for his condition Patient asked to discuss his alcohol use, in entirety, with his primary care physician 3. Hypokalemia Patient's potassium on 02/17/2021 is within normal limits Patient's discharge record will be available for patient's primary care physician, listed as Shant Jeronimo Patient advised to have repeat lab work as directed by primary care physician Discussed with patient that vomiting and diarrhea can deplete potassium levels fairly quickly and that he should discuss this with his primary care physician 4. Hypomagnemia Discussed with patient that magnesium can also be completed by diarrhea/vomiting and that patient should discuss this condition with his primary care physician upon discharge 5. Nicotine addiction Discussed cessation of nicotine use with patient for 5 minutes Discussed long-term effects of nicotine on the body systemically Offered medication for assistance of nicotine cessation, declined at this time Discharge Plan Discharge Education Printouts: Urinary Tract Infection in Men (ED) Low Back Strain (ED) Care plan: Plan of care discussed with patient and or family, Patient encouraged to ask questions about plan, Patient agrees with plan of care and Discharge plan and instructions discussed with patient and or family Medications Home Medications ciprofloxacin HCl [Cipro] 500 mg PO BID #10 tab 02/17/21 [Rx] metronidazole 500 mg PO BID #10 tab 02/17/21 [Rx] Time Spent on Discharge: > 30 Minutes Quality Measures Tobacco Use Smoking Status: Current every day smoker Smoking Cessation Education: Smoking cessation information given Alcohol screening Alcohol Consumption (from nursing Hx): Daily BMI Screening: Current Height: 6 ft Current Weight: 215 lb 3 oz Body Mass Index (BMI): 29.2 Influenza Immunization Hx/Date of Influenza Vaccination (from nursing Hx): No Diabetes Care Measures Glucose/POC Glucose: Glucose last 48 hrs 02/15/21 02/16/21 02/17/21 16:05 07:23 07:09 Glucose 125 H 102 99 Discharge Plan Admission/Discharge Dx Primary DC Diagnosis: diverticulitis Condition Condition: Stable Discharge Detail Disposition: Home, Self-Care Med Rec New Prescriptions: New metronidazole 500 mg tablet 500 mg PO BID Qty: 10 RF: 0 ciprofloxacin HCl [Cipro] 500 mg tablet 500 mg PO BID Qty: 10 RF: 0 Discharge Education Printouts: Urinary Tract Infection in Men (ED), Low Back Strain (ED) Diet:: clear/full liquid for 3 days Medications Medication reconciliation performed by provider at discharge: Yes *Discharge Patient* Discharge Orders: Discharge Order (Routine); Ordered 02/17/21 Ordered By: Ni Sam Dictated by: <Electronically signed by Ni Sam AMBULATORY ANALYST> Ni Sam NP 02/17/21 1408 Ni Sam NP SIGNATURE DA Report Cosigners: <<Signature on File>> Romi Meyers MD 02/17/21 [id number] <Electronically signed by Romi Meyers MD> Romi Meyers MD 02/17/21 1458 D: [facility] 02/17/21 1034 T: [facility] 02/17/21 1034 CC: Name Value Range Interpretation Code Description Data Argelia rce(s) Supporting Document(s) ID Date Data Source [id number] 02/17/2021 07:24:00 AM EDT [facility] Name Value Range Interpretation Code Description Data Argelia rce(s) Supporting Document(s) Leukocytes [#/volume] in Blood by Automated count 8.7 10*3/uL 4.45-10 .71 N [facility] Erythrocytes [#/volume] in Blood by Automated count 4.71 10*6/uL 4.3- 6.1 N [facility] Hemoglobin [Moles/volume] in Blood 15.9 g/dL 13-18 N [facility] Hematocrit [Volume Fraction] of Blood by Automated count 45.9 % 4 2-52 N [facility] Erythrocyte mean corpuscular volume [Ent itic volume] in Cord blood by Automated count 98 fL 80-96 Above high normal [facility] Erythrocyte mean corpuscular hemoglobin [Entitic mass] by Au tomated count 34 pg 27-31 Above high normal [facility] Erythrocyte mean corpuscular hemoglobin concentration [Mass/volume] in Cord blood 35 g/dL 33-37 N [facility] ital Erythrocyte distribution width [Entitic volume] by Automated count 13 % 11-15 N [facility] Platelets [#/volume] in Blood by Automated count 138 10*3/uL 130-472 N [facility] Platelet mean volume [Entitic volume] in Blood 10.4 fL 9.1-13.1 N [facility] Neutrophils/100 leukocytes in Blood by Automated count 60.4 % 41- 77 N [facility] Neutrophils [#/volume] in Blood by Automated count 5.3 U 1.7-7.6 N [facility] Lymphocytes/100 leukocytes in Blood by Automated count 28.1 % 14- 46 N [facility] Lymphocytes [#/volume] in Blood by Automated count 2.5 U 0.6-4.6 N [facility] Monocytes/100 leukocytes in Blood by Automated count 8.7 % 4-12 N [facility] Monocytes [#/volume] in Blood by Automated count 0.8 U 0.2-1.2 N [facility] Eosinophils/100 leukocytes in Blood by Automated count 2.4 % 0-7 N [facility] Eosinophils [#/volume] in Blood by Automated count 0.2 U 0.0-0.5 N [facility] Basophils/100 leukocytes in Blood by Automated count 0.3 % 0.4-1.3 Below low normal [facility] Basophils [#/volume] in Blood by Automated count 0.0 U 0.0-0.2 N [facility] NUCLEATED RED BLOOD CELL 0 % [facility] NUCLEATED RED BLOOD CELL# 0 U [facility] Immature granulocytes [Presence] in Blood by Automated count 0-2 N [facility] Immature granulocytes [#/volume] in Blood by Automated count 0.0 U 0-0.1 N [facility] Manual Differential panel - Blood NO [facility] ID Date Data Source [id number] 02/17/2021 07:52:00 AM EDT [facility] Name Value Range Interpretation Code Description Data Argelia rce(s) Supporting Document(s) Urea nitrogen [Mass/volume] in Serum or Plasma 5 mg/dL 9-23 Below low normal [facility] Sodium [Moles/volume] in Serum or Plasma 143 mmol/L 132-146 [facility] Potassium [Moles/volume] in Serum or Plasma 3.5 mmol/L 3.5-5.5 [facility] Chloride [Moles/volume] in Serum or Plasma 110 mmol/L 99-109 Above high normal [facility] Carbon dioxide, total [Moles/volume] in Serum or Plasma 28 mmol/L 20 -31 [facility] Anion gap in Serum or Plasma 9 mmol/L 8-16 [facility] Glucose [Mass/volume] in Serum or Plasma 99 mg/dL 74-106 N [facility] Creatinine 0.7 mg/dL 0.5-1.1 [facility] Glomerular filtration rate/1.73 sq M.pre dicted [Volume Rate/Area] in Serum or Plasma Greater Than 60 ABOVE 60 [facility] Alanine aminotransferase [Enzymatic acti vity/volume] in Serum or Plasma by With P-5'-P 47 U/L 10-49 N [facility] ital Aspartate aminotransferase [Enzymatic ac tivity/volume] in Serum or Plasma by With P-5'-P 53 U/L 0-33 Above high normal [facility] Alkaline phosphatase [Enzymatic activity/volume] in Serum or Plasma 86 U/L 45-129 N [facility] Calcium [Mass/volume] in Serum or Plasma 8.2 mg/dL 8.5-10.1 Below low normal [facility] Bilirubin.total [Mass/volume] in Serum or Plasma 2.5 mg/dL 0.3-1.2 Above high normal [facility] Albumin [Mass/volume] in Serum or Plasma by Bromocresol purple (BCP) dye binding method 3.3 g/dL 3.2-4.8 N [facility] ital Protein [Mass/volume] in Serum or Plasma 6.4 g/dL 5.7-8.2 [facility] ID Date Data Source [id number] 02/16/2021 10:31:00 AM EDT [facility] Name: CHRISTI NEWBERRY : 1975 Age: 45 MR#: [id number] Admit Date: 02/15/21 Provider: Ni Sam NP Room #: 298 Consulting Provider: Dictation Date: 02/16/21 Progress Note Subjective-ROS Date of service Date of service:: 02/16/21 Review of Systems General: Reports No Symptoms/Complaints HEENT: Reports No Symptoms Complaints Endocrine: Reports No Symptoms/Complaints Cardiovascular: Reports No Symptoms/Complaints Pulmonary: Reports No Symptoms/Complaints Gastrointestinal: Reports abdominal pain (2/10 around anterior beltline); Denies nausea, vomiting, diarrhea, constipation, heartburn, reflux/regurg or black tarry stools Genitourinary: Reports No Symptoms/Complaints Musculoskeletal: Reports No Symptoms/Complaints Neurological: Reports No Symptoms/Complaints Psych: Reports No Symptoms/Complaints Allergic/Immunologic: Reports No Symptoms/Complaints Attestation/Length Of Stay: 02/15/21 18:20 Observation Order [STATUS] Routine Location: [facility] Primary diagnosis: diverticulitis Isolation: Standard precautions Observation Status: OBV less than 2 midnights Anticipated Length of stay:: NA -Observation Patient Objective Objective Narrative:: 45 yr old male patient admitted for diverticulitis. Has been receiving iv fluids and antibiotics as well as medications for pain control on a prn basis. Has been NPO and given a clear liquid diet today and tolerating without increased abd pain. maintaining abd pain of 2/10, at the "belt line". Pt awake, alert and oriented x 3. Reports aprox 70-80% improved. Minimal c/o pain to lower abdomen bilaterally. Denies other c/o. Lungs cta and heart RRR. Abdomen soft and no diarrhea/stool for 48 hours. Urinating without difficulty. Iv fluids maintained and remains on iv Cipro and flagyl. Tmax of 99.2 last night and afebrile this am. AM labs reviewed. significant for elevated WBC of 11.2 on 02/15/21 down to normal this am, 9.1. No electrolyte imbalance this am. Vital Signs and I O Vitals and I O: Vital Signs last 12 hours Temp Pulse Resp BP Pulse Ox 02/16/21 07:38 98.4 F 63 16 138/78 91 L 02/16/21 02:56 98.7 F 65 18 132/80 93 L 02/15/21 23:54 99.2 F 18 135/75 94 L Intake Output Last 24 Hours 02/14/21 02/15/21 02/16/21 23:59 23:59 23:59 Intake Total 3299 / 3299 2411.2 / 2411.2 Balance 3299 / 3299 2411.2 / 2411.2 Current Weight 215 lb 3 oz 215 lb 3 oz Results Results: 02/16/21 07:23 02/16/21 07:23 Laboratory Results Last 24 hours 02/15/21 16:05: WBC 11.7 H, RBC 5.34, Hgb 17.9, Hct 51.0, MCV 96, MCH 34 H, MCHC 35, RDW 13, Plt Count 189, MPV 9.7, Immature Gran % (Auto) 0.3, Neut % (Auto) 7 5.8, Lymph % (Auto) 13.9 L, Vernon % (Auto) 9.4, Eos % (Auto) 0.1, Baso % (Auto) 0.5, Lymph # (Auto) 1.6, Abs Immat Gran (auto) 0.0, Add Manual Diff Manual diff added, Total Counted 100, Neutrophils (Manual) 75, Absolute Neutrophils 8.9 H, Lymphocytes (Manual) 19, Monocytes (Manual) 6, Monocytes # 1.1, Absolute Eosinophils 0.0, Absolute Basophils 0.1, Platelet Estimate Appears normal, RBC Morphology Appears normal 02/15/21 16:05: Sodium 139, Potassium 3.2 L, Chloride 102, Carbon Dioxide 31, Anion Gap 9, BUN 8 L, Creatinine 0.8, GFR Calculation Greater than 60, Glucose 125 H, Calcium 8.7, Total Bilirubin 2.3 H, AST 72 H, ALT 66 H, Alkaline Phosphatase 120, Serum Total Protein 7.9, Albumin 3.8, Amylase 52, Lipase 167 02/15/21 16:05: Magnesium 1.4 02/15/21 18:15: Lactic Acid 1.4 02/16/21 07:23: WBC 9.1, RBC 4.54, Hgb 15.2, Hct 44.4, MCV 98 H, MCH 34 H, MCHC 34, RDW 13, Plt Count 140, MPV 10.4, Immature Gran % (Auto) 0.1, Neut % (Auto) 56.9, Lymph % (Auto) 32.1, Vernon % (Auto) 9.0, Eos % (Auto) 1.7, Baso % (Auto) 0.2 L, Lymph # (Auto) 2.9, Abs Immat Gran (auto) 0.0, Add Manual Diff Manual diff added, Total Counted 100, Neutrophils (Manual) 66, Absolute Neutrophils 5.2, Lymphocytes (Manual) 30, Monocytes (Manual) 4, Monocytes # 0.8, Absolute Eosinophils 0.2, Absolute Basophils 0.0, Platelet Estimate Appears normal, RBC Morphology Appears normal 02/16/21 07:23: Sodium 144, Potassium 3.5, Chloride 110 H, Carbon Dioxide 28, Anion Gap 10, BUN 6 L, Creatinine 0.6, GFR Calculation Greater than 60, Glucose 102, Calcium 7.5 L D, Total Bilirubin 3.0 H, AST 38 H, ALT 44, Alkaline Phosphatase 87, Serum Total Protein 5.8 D, Albumin 3.0 L 02/16/21 07:23: Magnesium 1.4 Microbiology 02/15/21 18:25 Nasopharyngeal SARS-CoV-2 Rapid RNA (RT-PCR) - Final Sars-Cov-2 Not Detected Influenza A Not Detected Influenza B Not Detected RSV Not Detected Exam Orientation: Alert, Oriented x3, Cooperative and No acute distress HEENT: Atraumatic, PERRLA, EOMI and Mucous membr. moist/pink Lungs: normal lung sounds bilaterally; negative for respiratory distress or rales Cardiovascular Exam: regular rate, normal rhythm and no murmur Abdomen: Normal bowel sounds, Soft and Tenderness (bilat lower quads 2/10) Extremities: normal inspection Skin: Skin warm and dry, Mucus membranes moist Neurological: Normal gait, Normal speech and Strength at 5/5 X4 ext Psych/Mental Status: normal affect and normal mood Assessment/Plan Impressions/Problems (1) Diverticulitis: Code(s): K57.92 - Diverticulitis of intestine, part unspecified, without perforation or abscess without bleeding SNOMED Code(s): 240355246 (Problem) Plan of care:: Identified on imaging and by physical exam elevated WBC's on admission A P Free Text/Narrative :: 1. Diverticulitis monitor for worsening symptoms, pain, changes in stools, fever continue iv hydration Continue iv flagyl and cipro Clear liquids, unless worsening symptoms 2. Suspected alcohol abuse Discussed effects, systemically, of ETOH abuse on the body Encouraged reaching out for/asking for support if neded Discussed local resources such as [employer] Encouraged limited use of ETOH Monitor for withdrawls and treat based on protocol Thiamine and MVI 3. Hypokalemia will continue to monitor potassium levels daily supplement if indicated 4. Hypomagnesemia Will monitor levels during stay supplementation provided iv today of 2 grams 5. nicotine addiction Discussed cessation for 5 minutes discussed managing broker effects of nicotine systemically offerred medication for assistance of cessation, declined at this time 45-year-old male patient with a primary care care provider, Shant Jeronimo, presented to the emergency room on 02/15/2021, with complaints of lower abdominal pain for 4 days. Patient reported at that time that he did not have fever, chills, or diarrhea. He reported that he did not have any abdominal surgeries in his past, however he had had one episode of diagnosed diverticulitis. Patient was evaluated in the emergency room and admitted with a diagnosis of diverticulitis after labs and CT scan were reviewed by the emergency room physician. On admission patient advised the hospitalist that he had had nausea and multiple episodes of vomiting for 24 hours. He was given IV Cipro, Flagyl, and normal saline IV in the emergency room. Patient has been maintained on IV Cipro and Flagyl and normal saline at 100 cc/h. Patient has been n.p.o. And his past history is significant that he does smoke and he does have a history of alcohol abuse with prior admission for withdrawal. Reported at a time of admission that his last alcohol intake was more than 5 days ago. Patient was counseled strenuously by admitting hospitalist for smoking cessation and avoidance of alcohol abuse. Exam this morning is notable for mild abdominal pain across the beltline of the abdomen bilaterally. Patient rates his pain at 2/10. He reports that he has had no further episodes of nausea and that he is hungry. She reports that he feels as if he is ready to go home and he is anxious to be able to eat and to go home. AM labs reviewed and will supplement magnesium with 2grams IV as his level is 1.4. We will give patient clear liquid diet and monitor pain and response to diet. Tenative plan will be eval for discharge in am. Pt reports that significan other will be available for assistance in the home and for discharge transportation. Dictated by: <Electronically signed by Ni Sam NP> Ni Sam NP 02/16/21 1638 Ni Sam NP SIGNATURE DA Report Cosigners: <<Signature on File>> Romi Meyers MD 02/16/21 1726 <Electronically signed by Romi Meyers MD> Romi Meyers MD 02/16/21 1726 D: [facility] 02/16/21 1031 T: [facility] 02/16/21 1031 CC: Name Value Range Interpretation Code Description Data Argelia rce(s) Supporting Document(s) ID Date Data Source [id number] 02/16/2021 09:01:00 AM EDT [facility] @02/16/21 0802: MANUAL DIFF added. RFLXG = DIFF. @02/16/21 0802: MANUAL DIFF added. RFLXG = DIFF. Name Value Range Interpretation Code Description Data Argelia rce(s) Supporting Document(s) Urea nitrogen [Mass/volume] in Serum or Plasma 6 mg/dL 9-23 Below low normal [facility] Sodium [Moles/volume] in Serum or Plasma 144 mmol/L 132-146 [facility] Potassium [Moles/volume] in Serum or Plasma 3.5 mmol/L 3.5-5.5 [facility] Chloride [Moles/volume] in Serum or Plasma 110 mmol/L 99-109 Above high normal [facility] Carbon dioxide, total [Moles/volume] in Serum or Plasma 28 mmol/L 20 -31 N [facility] Anion gap in Serum or Plasma 10 mmol/L 8-16 N [facility] Glucose [Mass/volume] in Serum or Plasma 102 mg/dL 74-106 N [facility] Creatinine 0.6 mg/dL 0.5-1.1 [facility] Glomerular filtration rate/1.73 sq M.pre dicted [Volume Rate/Area] in Serum or Plasma Greater Than 60 ABOVE 60 [facility] Alanine aminotransferase [Enzymatic acti vity/volume] in Serum or Plasma by With P-5'-P 44 U/L 10-49 N [facility] ital Aspartate aminotransferase [Enzymatic ac tivity/volume] in Serum or Plasma by With P-5'-P 38 U/L 0-33 Above high normal [facility] Alkaline phosphatase [Enzymatic activity/volume] in Serum or Plasma 87 U/L 45-129 N [facility] Calcium [Mass/volume] in Serum or Plasma 7.5 mg/dL 8.5-10.1 DL [facility] Repeated by: Regina Gentiel 02/16/21 0900. Result Confirmation: 7.5 mg/dL Bilirubin.total [Mass/volume] in Serum or Plasma 3.0 mg/dL 0.3-1.2 Above high normal [facility] Albumin [Mass/volume] in Serum or Plasma by Bromocresol purple (BCP) dye binding method 3.0 g/dL 3.2-4.8 Below low normal [facility] Protein [Mass/volume] in Serum or Plasma 5.8 g/dL 5.7-8.2 No range defined, or normal ranges don't apply [facility] Repeated by: Regina Gentile 02/16/21 0901. Result Confirmation: 5.8 g/dL ID Date Data Source [id number] 02/16/2021 09:10:00 AM EDT [facility] @02/16/21 0802: MANUAL DIFF added. RFLXG = DIFF. @02/16/21 0802: MANUAL DIFF added. RFLXG = DIFF. Name Value Range Interpretation Code Description Data Argelia rce(s) Supporting Document(s) Leukocytes [#/volume] in Blood by Automated count 9.1 10*3/uL 4.45-10 .71 N [facility] Erythrocytes [#/volume] in Blood by Automated count 4.54 10*6/uL 4.3- 6.1 N [facility] Hemoglobin [Moles/volume] in Blood 15.2 g/dL 13-18 N [facility] Hematocrit [Volume Fraction] of Blood by Automated count 44.4 % 4 2-52 N [facility] Erythrocyte mean corpuscular volume [Ent itic volume] in Cord blood by Automated count 98 fL 80-96 Above high normal [facility] Erythrocyte mean corpuscular hemoglobin [Entitic mass] by Au tomated count 34 pg 27-31 Above high normal [facility] Erythrocyte mean corpuscular hemoglobin concentration [Mass/volume] in Cord blood 34 g/dL 33-37 N [facility] ital Erythrocyte distribution width [Entitic volume] by Automated count 13 % 11-15 N [facility] Platelets [#/volume] in Blood by Automated count 140 10*3/uL 130-472 N [facility] Platelet mean volume [Entitic volume] in Blood 10.4 fL 9.1-13.1 N [facility] Neutrophils/100 leukocytes in Blood by Automated count 56.9 % 41- 77 N [facility] Neutrophils [#/volume] in Blood by Automated count 5.2 U 1.7-7.6 N [facility] Lymphocytes/100 leukocytes in Blood by Automated count 32.1 % 14- 46 N [facility] Lymphocytes [#/volume] in Blood by Automated count 2.9 U 0.6-4.6 [facility] Monocytes/100 leukocytes in Blood by Automated count 9.0 % 4-12 N [facility] Monocytes [#/volume] in Blood by Automated count 0.8 U 0.2-1.2 [facility] Eosinophils/100 leukocytes in Blood by Automated count 1.7 % 0-7 N [facility] Eosinophils [#/volume] in Blood by Automated count 0.2 U 0.0-0.5 N [facility] Basophils/100 leukocytes in Blood by Automated count 0.2 % 0.4-1.3 Below low normal [facility] Basophils [#/volume] in Blood by Automated count 0.0 U 0.0-0.2 N [facility] NUCLEATED RED BLOOD CELL 0 % [facility] NUCLEATED RED BLOOD CELL# 0 U [facility] Immature granulocytes [Presence] in Blood by Automated count 0-2 N [facility] Immature granulocytes [#/volume] in Blood by Automated count 0.0 U 0-0.1 N [facility] Manual Differential panel - Blood Manual Diff Added [facility] ID Date Data Source [id number] 02/16/2021 09:10:00 AM EDT [facility] @02/16/21 0802: MANUAL DIFF added. RFLXG = DIFF. @02/16/21 0802: MANUAL DIFF added. RFLXG = DIFF. Name Value Range Interpretation Code Description Data Argelia rce(s) Supporting Document(s) Cells counted [#] 100 [facility] Neutrophils [#/volume] in Blood by Manual count 66 % 41-77 N [facility] Lymphocytes [#/volume] in Blood by Manual count 30 % 14-46 N [facility] Monocytes [#/volume] in Blood by Manual count 4 % 4-12 N [facility] Platelets [#/volume] in Blood by Estimate APPEARS NORMAL NORMAL [facility] Morphology [Interpretation] in Blood Narrative APPEARS NORMAL NORMAL [facility] ID Date Data Source [id number] 02/16/2021 08:26:00 AM EDT [facility] Name Value Range Interpretation Code Description Data Argelia rce(s) Supporting Document(s) Magnesium [Mass/volume] in Serum or Plasma 1.4 mg/dL 1.3-2.7 N [facility] ID Date Data Source [id number] 02/15/2021 06:33:00 PM EDT [facility] Name: CHRISTI NEWBERRY : 1975 Age: 45 MR#: [id number] Admit Date: 02/15/21 Provider: Romi Meyers MD Room #: 298 Consulting Provider: Dictation Date: 02/15/21 History Physical HPI Date of service Date of service:: 02/15/21 History of Present Illness Nurse screening for coronavirus: Recent Travel outside the No country (where) Emergency Room stated complaint: GI Source of information: Patient HPI Free Text/Narrative:: 45 y/o M came to ER c/o worsening diffuse abdominal pain, associated with nausea, multiple episodes of vomiting for past 1 day, no specific aggravating or relieving factor. In ER pt was found with vitals of BP 138/96, HR 65, RR 18, Temp 98.2, SpO2-98% on RA; CT abdomen wassuggestive of diverticulitis. Pt was given iv cipro and flagyl, iv zofran, NS bolus 1 liter, iv ativan 1 mg. Hospitalist service was consulted to admit the patient for further management. Pt was seen and examined at bedside in ER. Pt c/o mild d iffuse abdominal pain Allergies/Home Meds Allergies Allergy/AdvReac Type Severity Reaction Status Date / Time No Known Drug Allergies Allergy Verified 02/15/21 14:32 Home Medications Medication Instructions Recorded Confirmed Last Taken Type No Known Home Medications 12/06/20 02/15/21 Unknown History PFSH Medical History Diverticulitis Kidney calculi Tonsil and adenoid disease, chronic Surgical History History of tonsillectomy and adenoidectomy Family History (Updated 02/15/21 @ 18:37 by Romi Meyers MD) Father No problems noted. Mother No problems noted. Social History Does the Patient have a Healthcare Proxy: No Does Patient have a DNR?: No Does Patient have a Living Will?: No current occupational status: employed current occupation: [employer] Recent Travel (where): No Smoking Status: Former smoker alcohol intake: current alcohol intake frequency: 0-2 drinks per day substance use type: marijuana ROS Const All systems reviewed are unremarkable except as noted in HPI and below Denies excessive sweating and Denies fever(s) Eyes Denies diplopia ENT Denies dysphagia Card Denies chest pain Resp Denies cough and Denies wheezing GI Denies dysphagia, Denies diarrhea, Denies loose stools and Reports nausea Denies difficulty urinating Musc Denies arthralgias Skin/Breast Denies rash Neuro Denies confusion Psych Denies confusion and Denies depression Endo Denies excessive sweating Román/Lymph Denies easy bruising Aller/Immun Denies wheezing Vital Signs and I O Vitals and I O: Vital Signs last 12 hours Temp Pulse Resp BP Pulse Ox 02/15/21 17:38 98.2 F 65 18 138/96 98 02/15/21 14:12 97.5 F L 115 H 16 133/88 96 Intake Output Last 24 Hours 02/13/21 02/14/21 02/15/21 23:59 23:59 23:59 Intake Total 999 / 999 Balance 999 / 999 Current Weight 215 lb Height,Weight BMI: Ht Wt BMI Current Height 5 ft 11 in Current Weight 215 lb Results Results: 02/15/21 16:05 02/15/21 16:05 Laboratory Results Last 24 hours 02/15/21 16:05: WBC 11.7 H, RBC 5.34, Hgb 17.9, Hct 51.0, MCV 96, MCH 34 H, MCHC 35, RDW 13, Plt Count 189, MPV 9.7, Immature Gran % (Auto) 0.3, Neut % (Auto) 75.8, Lymph % (Auto) 13.9 L, Vernon % (Auto) 9.4, Eos % (Auto) 0.1, Baso % (Auto) 0.5, Lymph # (Auto) 1.6, Abs Immat Gran (auto) 0.0, Add Manual Diff Manual diff added, Total Counted 100, Neutrophils (Manual) 75, Absolute Neutrophils 8.9 H, Lymphocytes (Manual) 19, Monocytes (Manual) 6, Monocytes # 1.1, Absolute Eosinophils 0.0, Absolute Basophils 0.1, Platelet Estimate Appears normal, RBC Morphology Appears normal 02/15/21 16:05: Sodium 139, Potassium 3.2 L, Chloride 102, Carbon Dioxide 31, Anion Gap 9, BUN 8 L, Creatinine 0.8, GFR Calculation Greater than 60, Glucose 125 H, Calcium 8.7, Total Bilirubin 2.3 H, AST 72 H, ALT 66 H, Alkaline Phosphatase 120, Serum Total Protein 7.9, Albumin 3.8, Amylase 52, Lipase 167 Exam Const General: cooperative, healthy appearing, comfortable and no acute distress Orientation: alert, awake and oriented x3 HENMT Mouth: moist mucous membranes Eyes Conjunctivae: conjunctivae normal Neck Neck: supple Resp Auscultation: clear to auscultation bilaterally Cardio Rate: regular rate Rhythm: regular rhythm Heart Sounds: S1 normal and S2 normal GI Palpation: soft and nontender Auscultation: normal bowel sounds Skin Rashes: no rashes Neuro General: patient alert, patient awake and patient oriented x3 Cranial Nerves: CN's II-XII intact bilaterally Cognition: normal cognition Speech: speech normal Motor: strength 5/5 throughout Sensory Exam: no sensory deficits noted Extrem General: no pedal edema Psych Mood: congruent mood Assessment/Plan A P Free Text/Narrative :: 45 y/o M c/o nausea, vomiting and diffuse abodminal pain CT was suggestive of sigmoid diverticulitis. Labs and imaging studies reviewed Impression- Diverticulitis. Plan 1. Acute diverticulitis iv cipro and flagyl iv NS 100 ml/hr NPO PO tylenol pron, iv Toradol prn 2. suspected h/o alcohol abuse pt stated that he was admitted to hospital once for alcohol withdrawal takes alcohol every week on his off days. last alcohol intake more than 5 days ago will monitor for withdrawal. 3. hypokalemia will replete as needed 4. I counseled CHRISTI NEWBERRY on the dangers of tobacco use for at least 3 minutes. Then CHRISTI was advised to quit tobacco use altogether. I reviewed the various strategies to maximize success with CHRISTI. These include removing cigarettes and smoking materials from the environment. I alsoreviewed stress management and support of family/friends. I advised [facility] of the various health risks of smoking as well as its financial impact. Dictated by: <Electronically signed by Romi Meyers MD> Romi Meyers MD 02/16/21 0722 Romi Meyers MD SIGNATURE DA Report Cosigners: D: PHILIP 02/15/21 183 T: ARYVI 02/15/211832 CC: Name Value Range Interpretation Code Description Data Argelia rce(s) Supporting Document(s) ID Date Data Source [id number] 02/15/2021 06:25:00 PM EDT [facility] Name Value Range Interpretation Code Description Data Argelia rce(s) Supporting Document(s) Cepheid SARS/FLU/RSV RT-PCR SARS-COV-2 NOT DETECTED [facility] This lab was ordered by [facility] and reported by [facility]. ID Date Data Source [id number] 02/15/2021 06:46:00 PM EDT [facility] Special Instructions: Lab may order repe at test if initial test elevatedPhysician If elevated, reflex second test in 4-6 hrs Name Value Range Interpretation Code Description Data Argelia rce(s) Supporting Document(s) Lactic w Rfx (if elevated) 1.4 mmol/L 0.5-2.0 N [facility] ID Date Data Source [id number] 02/20/2021 06:19:00 PM EDT [facility] Special Instructions: Lab may order repe at test if initial test elevatedPhysician If elevated, reflex second test in 4-6 hrs Name Value Range Interpretation Code Description Data Argelia rce(s) Supporting Document(s) Bacteria identified in Blood by Culture [facility] NO GROWTH AFTER 5 DAYS ID Date Data Source [id number] 02/15/2021 05:52:00 PM EDT [facility] ED Physician Documentation NAME: CONIOSVALDO : 1975 AGE: 45 MR#: [id number] SERVICE DATE: 02/15/[address]: Emily Abraham MD PRIMARY CARE DR: Elle Jeronimo [employer] ROOM#: HPI (Adult, General) General Chief Complaint: GI Stated Complaint: VOMITING, CHILLS, SHAKES Time Seen by Provider: 02/15/21 15:36 History of Present Illness Narrative: This is a 45-year-old white male comes in with 4-day history of lower abdominal pain has been worsening over that timeframe. He denies any fever chills. Deniesany diarrhea. Patient has not had any abdominal surgeries. Allergies/Home Meds Allergies Allergy/AdvReac Type Severity Reaction Status Date / Time No Known Drug Allergies Allergy Verified 02/15/21 14:32 Home Medications Medication Instructions Recorded Confirmed Last Taken Type No Known Home Medications 12/06/20 02/15/21 Unknown History PMH (from Triage) Patient Medical History PMH Review ed/Updated as Needed: Yes (History ofAlmost daily EtOH use/abuse) PMH/PSH from Triage: Medical History (Updated 12/14/20 @ 14:06 by Kevin Magallanes MD) Diverticulitis (Medical) K57.92 History of tonsillectomy and adenoidectomy (Medical) Z98.890 Kidney calculi (Medical) N20.0 Tonsil and adenoid disease, 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 Surgical History (Updated 02/16/19 @ 12:14 by Sara Ventura) History of tonsillectomy and adenoidectomy (Surgical) Z98.890 Hx Drug Resistant Infections Hx MRSA: (Methicillin- resistant Staphylococcus aureus): No Hx VRE (Vancomycin-resistant enterococci): No Hx C.Diff: No Hx CRKP: No Hx Other Resistant Infection?: No Isolation: Standard precautions Hx Recent Travel Out of the country within 10 days (where): No Hx Fever: No Hx Fever with a rash?: No Nurse screening for coronavirus: Recent Travel outside the No country (where) Social History Does patient have suicidal/homicidal thoughts or ideation?: No Are you in a relationship with/Does anyone hit you, yell/swear at you, steal from you?: No Substance Use Hx Alcohol Use: Yes Hx Substance Use: No Hx Substance Use Treatment: Yes Second Hand Smoke Exposure: No Smoking Status: Former smoker Tobacco Use Years smoked:: over 20 yrs. Hx Chewing Tobacco Use: No Vaccination History Hx/Date of Tetanus, Diphtheria Vaccination: No Hx/Date of Influenza Vaccination: No Hx/Date of Pneumococcal Vaccination: No PFSH Medical History Diverticulitis Kidney calculi Tonsil and adenoid disease, chronic Surgical History History of tonsillectomy and adenoidectomy Family History (Updated 02/15/21 @ 18:37 by Romi Meyers MD) Father No problems noted. Mother No problems noted. 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 Hx Recent Travel (where): No Smoking Status: Former smoker alcohol intake: current alcohol intake frequency: 0-2 drinks per day substance use type: marijuana Sickle cell Sickle cell susceptibility: No ROS Review of Systems Constitutional: Denies fever, chills, sweats, weakness, malaise, weight loss, weight gain or other Eyes: Denies vision change, eye discharge/drng, redness, eye pain, descr of pain, conjunctiva inflammation, eyelid inflammation, eyelid issues, floaters, foreign body, r/t accident, contact lensuser, wears glasses or other ENT: Denies mouth pain, mouth swelling, dental pain, dry mouth, bleeding gums, ear pain, hearing loss, tinnitis, ear discharge, nasal pain, nasal discharge, nasal congestion, post nasal drip, epistaxis, throat pain, throat swelling, hoarsene ss, constant throat clearing, pain upon swallowing,recent head trauma, recent airplane travel, recent swimming/diving, uses hearing aid/ear plugs, painworse with motion, prolonged use of topical meds or other Respiratory: Denies cough, sputum, orthopnea, SOB w/exertion rest, SOB with excertion, SOB at rest, SOB, stridor, wheezing, hemoptysis, pleuritic pain, exposures or other Cardiovascular: Denies chest pain, palpitations, orthopnea, hypertension, paroxysmal noc dyspnea, edema, light headedness, dyspnea on exertion, syncope, known heart murmurs, leg cramps w/walking, pain in feet/toes at night, varicose veins or other Gastrointestinal: Denies No Symptoms/Complaints, nausea, vomiting, abdominal pain, diarrhea, constipation, heartburn, reflux/regurg, frequent belching, hemorrhoids, hematemesis, black tarry stools, melena, hematochezia, coffee grounds emesis, stomach pain relieved by food, hx of jaundice or other Neurologic: Denies weakness, numbness, headache, incoordination, change in speech, confusion, dizziness, vertigo, lightheadedness, seizures, muscle spasm, tremors, loss of consciousness, memory loss, sensitivity/pain in hands, sensitivity/pain in feet, abnormal gait, paresthesias or other Psychiatric: Denies No Symptoms/Complaints, anxiety, depression, auditory hallucinations, visual hallucinations, suicidal thoughts, homicidal thoughts, hopelessness, helplessness, change in energy,change in sleep patterns, change in motivation, change in concentration, change in sexual urges, feelings of guilt, anhedonia or other Endocrine: Denies No Symptoms/Complaints, Excessive sweating, Loss of appetite, Increased appetite, Intolerance to cold, Intolerance to heat, Flushing, Polydipsia, Polyuria, Increased salt intake, Fingernail changes, Unexplained weight gain, Unexplained weight loss, Decreased sexual desire or Other Hematological/Lymphatic: Denies No Symptoms/Complaints, easy bleeding, easy bruising, swollen glands, petechiae, lympathadenopathy, purpura or other Physical Exam General Limitations: no limitations General appearance: alert and in no apparent distress Eye Eye exam: Present normal apperance, PERRL and EOMI; Absent scleral icterus or conjunctival injection ENT ENT exam: Present normal exam Neck Neck exam: Present normal inspection, full ROM and supple; Absent tenderness, meningismus or lymphadenopathy Respiratory Respiratory exam: Present normal lung sounds bilaterally Cardiovascular Cardiovascular Exam: Present regular rate and normal rhythm GI/Abdominal GI/Abdominal exam: Present Abd soft, bowel sounds present all quadrents and tenderness (Generalized tenderness over the lower abdomenWith some mild involuntary guarding. Bowel sounds are hypoactive in nature but present.) Rectal Rectal exam: Present deferred Extremities Exam Extremities exam: Present normal inspection and Full ROM without tenderness, capillary refill brisk Back Exam Back exam: Present normal inspection and full ROM; Absent tenderness, CVA tenderness (R) or CVA tenderness (L) Neurological Exam Neurological exam: Present alert, oriented X3 and CN II-XII intact Psychiatric Psychiatric exam: Present normal affect Skin Skin exam: Present warm, dry, intact and normal color; Absent rash or cyanosis Vital Signs Vital Signs: Vital Signs 02/15/21 14:12 02/15/21 17:38 Temperature 97.5 F L 98.2 F Pulse Rate 115 H 65 Respiratory Rate 16 18 Blood Pressure 133/88 138/96 O2 Sat by Pulse Oximetry 96 98 MDM (comprehensive) Lab Data Labs: 02/15/21 16:05 02/15/21 16:05 Laboratory Results Last 24 hours 02/15/21 16:05: W BC 11.7 H, RBC 5.34, Hgb 17.9, Hct 51.0, MCV 96, MCH 34 H, MCHC 35, RDW 13, Plt Count 189, MPV 9.7, Immature Gran % (Auto) 0.3, Neut % (Auto) 75.8, Lymph % (Auto) 13.9 L, Vernon % (Auto) 9.4, Eos % (Auto) 0.1, Baso % (Auto) 0.5, Lymph # (Auto) 1.6, Abs Immat Gran (auto) 0.0, Add Manual Diff Manual diff added, Total Counted 100, Neutrophils (Manual) 75, Absolute Neutrophils 8.9 H, Lymphocytes (Manual) 19, Monocytes (Manual) 6, Monocytes # 1.1, Absolute Eosinophils 0.0, Absolute Basophils 0.1, Platelet Estimate Appears normal, RBC Morphology Appears normal 02/15/21 16:05: Sodium 139, Potassium 3.2 L, Chloride 102, Carbon Dioxide 31, Anion Gap 9, BUN 8 L, Creatinine 0.8, GFR Calculation Greater than 60, Glucose 125 H, Calcium 8.7, Total Bilirubin 2.3 H, AST 72 H, ALT 66 H, Alkaline Phosphatase 120, Serum Total Protein 7.9, Albumin 3.8, Amylase 52, Lipase 167 02/15/21 16:05: Magnesium 1.4 02/15/21 18:15: Lactic Acid 1.4 Microbiology 02/15/21 18:25 N asopharyngeal SARS-CoV-2 Rapid RNA (RT-PCR) - Final Sars-Cov-2 Not Detected Influenza A Not Detected Influenza B Not Detected RSV Not Detected Radiology Data Radiology results: report reviewed Radiology impressions: CT SCAN OF THE ABDOMEN AND PELVIS WITH CONTRAST A CT scan of the abdomen and pelvis was performed administering 100 cc of intravenous Omnipaque 300 to obtain thin transaxial slices during a portal venous phase acquisition of the abdomen and pelvis on a multidetector CT scan. Dose reduction technique was applied. There is mild right lower lobe atelectasis. The gallbladder has a normal CT scan appearance. The stomach is empty and contracted. There is severe fatty infiltration of the liver. The liver, spleen, pancreas, adrenal glands, and kidneys all have a normal appearance. There is no hydronephrosis. No inflammatory changes are present in the upper intraabdominal fat and there is no ascites or adenopathy. The abdominal aorta has a normal caliber. The bowel in the upper abdomen has a normal caliber without signs of obstruction. Images of the pelvis demonstrates a normal sized prostate. The urinary bladder and rectum have sharpcontours. There is no inguinal hernia. A normal appendix is visualized. There is at least moderate diverticulosis in the sigmoid colon. The middle segment exhibits mural thickening and mild inflammation of the adjacent fat consistent with mild diverticulitis. There is no perforation or abscess. IMPRESSION: 1. The appendix has a normal appearance. 2. Mild diverticulitis in the sigmoid colon without perforation or abscess. 3. No hydronephrosis. 4. Fatty liver. Medical Decision Making Free Text/Narative:: I discussed all the findings of CT and laboratory with Dr. Pittman from the hospitalist team. He graciously excepted the patient to his service. Plan Visit Medications Administered ED medications:: Medications Discontinued Medications Generic Name Dose Route Start Last Admin Trade Name Freq PRN Reason Stop Dose Admin Sodium Chloride 1,000 mls @ 999 mls/hr 02/15/21 15:43 02/15/21 18:53 Ns 0.9% IV 02/15/21 18:43 999 mls/hr .Q1H1M CHERI Administration Ciprofloxacin/Dextrose 400 mg in 200 mls @ 200 mls/hr 02/15/21 17:53 02/15/21 18:57 Cipro 400mg Piggyback IV 02/15/21 18:52 Infused ONCE ONE Infusion Metronidazole 500 mg in 100 mls @ 150 mls/hr 02/15/21 17:54 02/15/21 19:12 Flagyl 500mg/100ml IV 02/15/21 18:33 150 mls/hr ONCE ONE Administration Lorazepam 1 mg 02/15/21 17:02 02/15/21 17:12 Lorazepam 2 Mg/Ml Sdv IVP 02/15/21 17:03 1 mg 1T ONE Administration Ondansetron HCl 4 mg 02/15/21 15:42 02/15/21 15:55 Ondansetron Hcl/Pf 4 Mg/2 Ml Sdv IVP 02/15/21 15:43 4 mg 1T ONE Administration Discharge Plan Admission/Discharge Dx Primary (Admit) Diagnosis: Acute diverticulitis history of EtOH abuse ED Provider: Emily Abraham ED Status: Decision to Admit/Consult Time Seen by Provider: 02/15/21 15:36 Triaged At: 02/15/21 14:12 Condition Condition: Stable Discharge Detail Disposition: Admit to [facility] New Prescriptions: No Action No Known Home Medications RF: 0 *Discharge Patient* Discharge Orders: Provider hand off (NOW); Ordered 02/15/21 Ordered By: Emily Abraham Interventions Interventions: ED GI Gastrointestinal Last Done: 02/15/21 14:15 Report Signers: <Electronically signed by Emily Abraham > Emily Abraham 02/15/21 1930 Emily Abraham SIGNATURE DA Report Cosigners: D: MARGOTH 02/15/211751 T: MARGOTH 02/15/211751 CC: Elle Jeronimo Name Value Range Interpretation Code Description Data Argelia rce(s) Supporting Document(s) ID Date Data Source [id number] 02/15/2021 05:38:00 PM EDT [facility] [address] [place] [address] [phone] NAME SEX PT STATUS ACCOUNT NUMBER CHRISTI NEWBERRY [facility] ER [id number] ORDERING PHYSICIAN LOCATION MEDICAL RECORD NO. Emily Abraham MD ER [id number] ATTENDING PHYSICIAN DATE OF DATE OF EXAM/TIME Elle Jeronimo NP 1975 02/15/21 / 1541 TYPE / EXAM CT Abd/pel w/ contrast REASON FOR EXAM rt sided abd pain/ vomitting Clinical History/Indication for Exam: rt sided abd pain/ vomitting Right-sided abdominal pain with vomiting CT SCAN OF THE ABDOMEN AND PELVIS WITH CONTRAST A CT scan of the abdomen and pelvis was performed administer ing 100 cc of intravenous Omnipaque 300to obtain thin transaxial slices during a portal venous phase acquisition of the abdomen and pelvis on a multidetector CT scan. Dose reduction technique was applied. There is mild right lower lobe atelectasis. The gallbladder has a normal CT scan appearance. The stomach is empty and contracted. There is severe fatty infiltration of the liver. The liver, spleen, pancreas, adrenal glands, and kidneys all have a normal appearance. There is no hydronephrosis. No inflammatory changes are present in the upper intraabdominal fat and there is no ascites or adenopathy. The abdominal aorta has a normal caliber. The bowel in the upper abdomen has a normal caliber without signs of obstruction. Images of the pelvis demonstrates a normal sized prostate. The urinary bladder and rectum have sharp contours. There is no inguinal hernia. A normal appendix is visualized. There is at least moderate diverticulosis in the sigmoid colon. The middle se gment exhibits mural thickening and mild inflammation of the adjacent fat consistent with mild diverticulitis. There is no perforation or abscess. IMPRESSION: 1. The appendix has a normal appearance. 2. Mild diverticulitis in the sigmoid colon without perforation or abscess. 3. No hydronephrosis. 4. Fatty liver. Automatic exposure control was used as a dose lowering technique. Contrast Type: Ominpaque 300. Contrast Volume: 100 ML REPORT SIGNATURE ON FILE 02/15/2021 (17:38 Eastern Time ) Signed by: Deion Gilmore M.D. Reported By Deion Gilmore MD on 02/15/211737 Signed By Deion Gilmore MD on 02/15/211737 Date Time CC: Elle Gilmore M.D. Techn: SPANI Trans Dt/Tm: Trans by: DT Prt Dt/Tm: : Total DLP = 1146.00 mGy-cm : Total Radiation Dose = 17.1900 mSv Lifetime Dose: 39.7552 mSv Name Value Range Interpretation Code Description Data Argelia rce(s) Supporting Document(s) ID Date Data Source [id number] 02/15/2021 04:38:00 PM EDT [facility] @02/15/21 1624: MANUAL DIFF added. RFLXG = DIFF. @02/15/21 1624: MANUAL DIFF added. RFLXG = DIFF. Name Value Range Interpretation Code Description Data Argelia rce(s) Supporting Document(s) Leukocytes [#/volume] in Blood by Automated count 11.7 10*3/uL 4.45-10.71 Above high normal [facility] Erythrocytes [#/volume] in Blood by Automated count 5.34 10*6/uL 4.3- 6.1 N [facility] Hemoglobin [Moles/volume] in Blood 17.9 g/dL 13-18 N [facility] Hematocrit [Volume Fraction] of Blood by Automated count 51.0 % 4 2-52 N [facility] Erythrocyte mean corpuscular volume [Ent itic volume] in Cord blood by Automated count 96 fL 80-96 N [facility] ital Erythrocyte mean corpuscular hemoglobin [Entitic mass] by Au tomated count 34 pg 27-31 Above high normal [facility] Erythrocyte mean corpuscular hemoglobin concentration [Mass/volume] in Cord blood 35 g/dL 33-37 N [facility] ital Erythrocyte distribution width [Entitic volume] by Automated count 13 % 11-15 N [facility] Platelets [#/volume] in Blood by Automated count 189 10*3/uL 130-472 N [facility] Platelet mean volume [Entitic volume] in Blood 9.7 fL 9.1-13.1 N [facility] Neutrophils/100 leukocytes in Blood by Automated count 75.8 % 41- 77 N [facility] Neutrophils [#/volume] in Blood by Automated count 8.9 U 1.7-7.6 Above high normal [facility] Lymphocytes/100 leukocytes in Blood by Automated count 13.9 % 14-46 Below low normal [facility] Lymphocytes [#/volume] in Blood by Automated count 1.6 U 0.6-4.6 N [facility] Monocytes/100 leukocytes in Blood by Automated count 9.4 % 4-12 N [facility] Monocytes [#/volume] in Blood by Automated count 1.1 U 0.2-1.2 N [facility] Eosinophils/100 leukocytes in Blood by Automated count 0.1 % 0-7 N [facility] Eosinophils [#/volume] in Blood by Automated count 0.0 U 0.0-0.5 N [facility] Basophils/100 leukocytes in Blood by Automated count 0.5 % 0.4-1 .3 N [facility] Basophils [#/volume] in Blood by Automated count 0.1 U 0.0-0.2 [facility] NUCLEATED RED BLOOD CELL 0 % [facility] NUCLEATED RED BLOOD CELL# 0 U [facility] Immature granulocytes [Presence] in Blood by Automated count 0-2 N [facility] Immature granulocytes [#/volume] in Blood by Automated count 0.0 U 0-0.1 N [facility] Manual Differential panel - Blood Manual Diff Added [facility] ID Date Data Source [id number] 02/15/2021 04:40:00 PM EDT [facility] @02/15/21 1624: MANUAL DIFF added. RFLXG = DIFF. @02/15/21 1624: MANUAL DIFF added. RFLXG = DIFF. Name Value Range Interpretation Code Description Data Argelia rce(s) Supporting Document(s) Urea nitrogen [Mass/volume] in Serum or Plasma 8 mg/dL 9-23 Below low normal [facility] Sodium [Moles/volume] in Serum or Plasma 139 mmol/L 132-146 N [facility] Potassium [Moles/volume] in Serum or Plasma 3.2 mmol/L 3.5-5.5 Below low normal [facility] Chloride [Moles/volume] in Serum or Plasma 102 mmol/L 99-109 [facility] Carbon dioxide, total [Moles/volume] in Serum or Plasma 31 mmol/L 20 -31 [facility] Anion gap in Serum or Plasma 9 mmol/L 8-16 N [facility] Glucose [Mass/volume] in Serum or Plasma 125 mg/dL 74-106 Above high normal [facility] Creatinine 0.8 mg/dL 0.5-1.1 [facility] Glomerular filtration rate/1.73 sq M.pre dicted [Volume Rate/Area] in Serum or Plasma Greater Than 60 ABOVE 60 [facility] Alanine aminotransferase [Enzymatic acti vity/volume] in Serum or Plasma by With P-5'-P 66 U/L 10-49 Above high normal [facility] Aspartate aminotransferase [Enzymatic ac tivity/volume] in Serum or Plasma by With P-5'-P 72 U/L 0-33 Above high normal [facility] Alkaline phosphatase [Enzymatic activity/volume] in Serum or Plasma 120 U/L 45-129 N [facility] Calcium [Mass/volume] in Serum or Plasma 8.7 mg/dL 8.5-10.1 N [facility] Bilirubin.total [Mass/volume] in Serum or Plasma 2.3 mg/dL 0.3-1.2 Above high normal [facility] Albumin [Mass/volume] in Serum or Plasma by Bromocresol purple (BCP) dye binding method 3.8 g/dL 3.2-4.8 N [facility] ital Protein [Mass/volume] in Serum or Plasma 7.9 g/dL 5.7-8.2 N [facility] ID Date Data Source [id number] 02/15/2021 04:38:00 PM EDT [facility] @02/15/21 1624: MANUAL DIFF added. RFLXG = DIFF. @02/15/21 1624: MANUAL DIFF added. RFLXG = DIFF. Name Value Range Interpretation Code Description Data Argelia rce(s) Supporting Document(s) Cells counted [#] 100 [facility] Neutrophils [#/volume] in Blood by Manual count 75 % 41-77 N [facility] Lymphocytes [#/volume] in Blood by Manual count 19 % 14-46 N [facility] Monocytes [#/volume] in Blood by Manual count 6 % 4-12 [facility] Platelets [#/volume] in Blood by Estimate APPEARS NORMAL NORMAL [facility] Morphology [Interpretation] in Blood Narrative APPEARS NORMAL NORMAL [facility] ID Date Data Source [id number] 02/15/2021 04:40:00 PM EDT [facility] @02/15/21 1624: MANUAL DIFF added. RFLXG = DIFF. @02/15/21 1624: MANUAL DIFF added. RFLXG = DIFF. Name Value Range Interpretation Code Description Data Argelia rce(s) Supporting Document(s) Amylase [Enzymatic activity/volume] in Serum or Plasma 52 U/L 30- 118 N [facility] ID Date Data Source [id number] 02/15/2021 04:40:00 PM EDT [facility] @02/15/21 1624: MANUAL DIFF added. RFLXG = DIFF. @02/15/21 1624: MANUAL DIFF added. RFLXG = DIFF. Name Value Range Interpretation Code Description Data Argelia rce(s) Supporting Document(s) Lipase [Enzymatic activity/volume] in Serum or Plasma 167 U/L 73-3 93 N [facility] ID Date Data Source [id number] 12/12/2020 10:40:00 AM EDT [facility] Patient Name: CHRISTI NEBWERRY OB: 1975 Sex: M Pt Unit #: [id number] Location:[facility] Provider: Visit Date/Time: 12/12/20 Primary Insurance: [employer] [place] Secondary Insurance: Self Pay Intake Vital Signs 12/12/20 10:41 Current Height 6 ft Current Weight 222 lb 2 oz BMI 30.1 BP 131/72 Respiration 16 Pulse 101 H Pulse Oximetry (%) 93 L Intake Visit Reasons: Knee pain follow-up Is patient in pain?: Yes Pain scale (1-10): 9 Allergies No Known Drug Allergies Allergy (Verified 12/14/20 13:59) Medications - Last Reconciled 12/14/20 by Kevin Magallanes MD No Known Home Medications HIV Testing Offer - ages 13-64 Requirement for HIV testing offer been met?: Declines today. Pretest education received and acknowledged Coronavirus Screening Screening Are you currently positive or on isolation for COVID ?: No Do you have any NEW signs of one or more of the following?: no symptoms Do you have NEW signs of at least two of the following?: no symptoms HPI Additional HPI HPI Details: Patient is a 45 year old male, here for MRI results of the left knee. Patient sustained aninitial injury on October 28, 2020 after falling off his roof while attempting to shovel snow. Patient describes no pre-existing conditions involving his left knee. He describes a sense of instability involving the left knee joint. He is presently ambulating without assistive devices. He does admit to being drunk at today's visit., He states he is self medicating because he is in such pain and is not able to sleep. Knee pain follow-up * Associated symptoms: Denies fever(s) [facility] Medical History Diverticulitis Kidney calculi Tonsil and adenoid disease, chronic Surgical History History of tonsillectomy and adenoidectomy Social History Does the Patient have a Healthcare Proxy: No Does Rodolfo alvarado have a DNR?: No Does Patient have a Living Will?: No current occupational status: employed current occupation: [employer] Recent Travel (where): No Smoking Status: Current every day smoker tobacco type: cigarettes alcohol intake: current alcohol intake frequency: 0-2 drinks per day substance use type: marijuana Review of Systems Const Denies anorexia, Denies excessive sweating, Denies fatigue, Denies fever(s), Denies headache(s), Denies weight gain and Denies weight loss Eyes Denies blurry vision, Denies change in vision, Denies dry eyes, Denies irritation, Denies itchy eyesand Denies loss of vision ENT Denies abnormal hearing, Denies dysphagia, Denies dizziness, Denies headache(s), Denies lip swelling, Denies nasal congestion, Denies nasal discharge, Denies disequilibrium, Denies sinus pain,Denies sore throat and Denies throat swelling Card Denies chest pain, Denies pedal edema, Denies lightheadedness, Denies palpitations and Denies dyspnea Resp Denies cough, Denies excessive phlegm production, Denies pain on inspiration, Denies dyspnea and Denies wheezing GI Denies abdominal pain, Denies change in bowel habits, Denies dysphagia, Denies early satiety, Deniesheartburn, Denies diarrhea, Denies nausea and Denies vomiting Denies difficulty urinating, Denies flank pain, Denies urinary frequency, Denies urinary incontinence and Denies urinary urgency Musc Denies back pain, Reports arthralgias (left knee), Denies limited range of motion, Denies muscle cramps and Denies muscle weakness Skin/Breast Denies breast pain, Denies change in pigmentation, Denies lesions, Denies nail changes, Denies rash and Denies unusual bruising Neuro Denies abnormal hearing, Denies dizziness, Denies headache(s), Denies loss of vision, Denies memory loss, Denies paresthesias and Denies disequilibrium Psych Denies abnormal sleep pattern, Denies anxiety, Denies change in appetite, Denies depression, Denies irritability and Denies memory loss Endo Denies cold intolerance, Denies excessive sweating, Denies fatigue, Denies polyphagia, Denies polydipsia, Denies polyuria and Denies palpitations Román/Lymph Denies easy bleeding, Denies easy bruising and Denies lymphadenopathy Aller/Immun Denies urticaria, Denies itchy eyes, Denies lip swelling, Denies seasonal rhinorrhea, Denies throat swelling and Denies wheezing Exam Const General: cooperative, healthy appearing, comfortable, well developed and well groomed Nutritional Appearance: average body habitus Orientation: alert, awake and oriented x3 HENDE Head: normal to inspection, normocephalic and atraumatic Eyes General: appearance normal, both eyes and all related structures Pupils: PERRL Neck Neck: normal visual inspection, full ROM and nontender Chest Chest: normal inspection of the chest Resp Effort Inspection: normal respiratory effort Skin Lesions: no lesions Rashes: no rashes Trauma: no lacerations or abrasions Neuro General: patient alert, patient awake and patient oriented x3 Cognition: normal cognition Speech: speech normal Motor: muscle tone normal throughout Extrem Other: Examination of the left knee reveals no soft tissue swelling and no left knee effusion. Patient has discomfort when valgus stress is applied to the left knee in both flexion and extension. Patient has tenderness of the medial collateral ligament on direct palpation both proximal and distal to the joint line. Patient has no instability of the left knee with valgus stress in flexionor extension. Danita's and pivot shift tests are negative. Posterior drawer sign is negative. Patient has no tenderness on the undersurface of the medial or lateral facets of the patella. Significant patellofemoral crepitation is not appreciated on the patient flexes and extends the left kneeagainst gravity. Ipsilateral left hip exam is normal. Psych Appearance: grossly normal Thought Process: normal Thought Content: normal Insight: insight good Assessment Plan Assessment Plan (1) Knee pain: Code(s): M25.569 - Pain in unspecified knee (2) Tear of MCL (medial collateral ligament) of knee: Status: Acute Code(s): S83.419A - Sprain of medial collateral ligament of unspecified knee, initial encounter SNOMED Code(s): 963458199 Category: Medical Qualifiers: Encounter type: subsequent encounter Laterality: left Qualified Code(s): S83.412D - Sprainof medial collateral ligament of left knee, subsequent encounter Plan - Kevin Magallanes MD: MRI scan of the left knee was reviewed. Patient was noted to have chondral changes on the undersurface of the patella. Patient was noted to have evidence for partial rupture involving the medial clear ligament. Tearing of the MCL is noted both proximal and distal to the joint line. Themedial meniscus was normal. The anterior cruciate and posterior cruciate ligaments were normal. Patient is now 6 weeks following injury. He has no instability on clinical exam. Results of the MRI scan were discussed with him in detail. Physical therapy will be instituted working on range ofmotion gentle strengthening exercises to the knee. Patient will follow-up with us in 2 to 3 weeks. All questions were answered. Coding Level of Care Code 88925 Est Pt Intermediate Comp Exam Expanded Problem Focused Diagnoses Knee pain M25.569 Tear of MCL (medial collateral ligament) of knee S83.412D Encounter type: subsequent encounter Laterality: left <Electronically signed by Kevin Magallanes MD> 12/14/20 1407 Name Value Range Interpretation Code Description Data Argelia rce(s) Supporting Document(s) ID Date Data Source [id number] 12/07/2020 06:33:00 PM EDT [facility] [address] [place] [address] [phone] NAME SEX PT STATUS ACCOUNT NUMBER CHRISTI NEWBERRY PRE REF [id number] ORDERING PHYSICIAN LOCATION MEDICAL RECORD NO. Kevin Magallanes MD MRI [id number] ATTENDING PHYSICIAN DATE OF DATE OF EXAM/TIME Elle Jeronimo NP 1975 12/07/201755 TYPE / EXAM MRI Knee Left w/o REASON FOR EXAM s/p acute medial Meniscus left knee, ortho Clinical History/Indication for Exam: s/p acute medial Meniscus left knee, ortho MR LEFT LOWER EXTREMITY WITHOUT INTRAVENOUS CONTRAST KNEE INDICATION: s/p acute medial Meniscus left knee, ortho TECHNIQUE: Multiplanar magnetic resonance images of the left knee without intravenous contrast. COMPARISON: Left knee x-rays from 10/28/2020 FINDINGS: BONES/JOINTS/CARTILAGE: Patellofemoral compartment: Focal area of chondral blistering of the mid patellar surface in an area measuring up to approximately 10 x 9 mm along the median ridge. Normal cartilage thickness throughout the remainder of the cárdenas lla and the trochlea. There is no joint effusion. Femorotibial compartments: Minimal chondrocalcinosis along the weightbearing surfaces of the medial femoral tibial compartment and along the lateral tibial plateau as well. There is no full-thickness or partial-thickness cartilage defect seen. Noncompartmental bone findings: Bone marrow signal is normal with persistent red marrow pattern. Extensor mechanism: Normal quadriceps and patellar tendon. Normal signal. Medial meniscus: Normal morphology. No tear. Lateral meniscus: Normal morphology. No tear. Medial capsule/supporting structures: There is an intermediate to high-grade partial tear of the anterior fibers with disruption of the proximal to mid MCL measuring up to 3 cm in length and there is a low to intermediate grade partial tear or sprain of the anterior fibers of the mid to distal MCL. There is mild fluid signal along the deep aspect. Lateral capsule/supporting structures: Normal lateral collateral ligament complex. Normal posterior lateral corner structures including popliteus tendon. Anterior cruciate ligament: Intact and continuous. Posterior cruciate ligament: Intact with normal signal. Musculature: Unremarkable. Soft tissues: Unremarkable. IMPRESSION: 1. Partial rupture of the mid to anterior fibers of the proximal MCL measuring 3 cm in length wi thintact posterior fibers which appear to be continuous compatible with intermediate to high-grade partial tear. There is a low-grade to intermediate grade partial anterior fiber tear or sprain of the mid to distal fibers of the MCL. 2. The LCL complex and the cruciate ligaments are intact. No meniscal tears are seen. 3. 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 No full- thickness defect is seen. 4. Normal bone marrow signal. No fracture or bone contusion. No significant knee effusion. REPORT SIGNATURE ON FILE 12/07/2020 (18:33 Eastern Time ) Signed by: King Hdez M.D. Reported By King Hdez MD on 12/07/201832 Signed By King Hdez MD on 12/07/201832 Date Time CC: King Hdez MD; Elle Jeronimo Techn: JOSE ELIAS Trans Dt/Tm: Trans by: DT Prt Dt/Tm: : Total DLP = 0.00 mGy-cm : Total Radiation Dose = 0.0000 mSv Lifetime Dose: 22.5652 mSv Name Value Range Interpretation Code Description Data Argelia rce(s) Supporting Document(s) ID Date Data Source [id number] 12/06/2020 09:20:00 AM EDT [facility] Patient Name: CHRISTI NEWBERRY OB: 1975 Sex: M Pt Unit #: [id number] Location:[facility]TH[facility] Provider: Visit Date/Time: 12/06/20 Primary Insurance: [facility] Secondary Insurance: Self Pay Intake Vital Signs 12/06/20 09:22 Current Height 6 ft Current Weight 222 lb 2 oz Weight Measurement Method Standing Scale BMI 30.1 BP 122/78 Respiration 16 Pulse 100 Temp 98.0 F Temp Source Temporal Artery Scan Pulse Oximetry (%) 98 Oxygen Delivery Method room air Intake Visit Reasons: left Knee injury Is patient in pain?: Yes Pain scale (1-10): 6 Allergies No Known Drug Allergies Allergy (Verified 05/01/19 13:29) HIV Testing Offer - ages 13-64 Requirement for HIV testing offer been met?: Declines today. Pretest education received and acknowledged Coronavirus Screening Screening Are you currently positive or on isolation for COVID ?: No Do you have any NEW signs of one or more of the following?: no symptoms Do you have NEW signs of at least two of the following?: no symptoms HPI Additional HPI HPI Details: New patient is a 45 year old male, here for an ER follow-up of his Left knee injury. He presented to [facility]'s ER on 10/28/20 after falling off his roof while attempting to shovel snow that same day. He was placed into a knee immobilizer and given crutches. He was seen by [facility] on 11/19/20 and an MRI was ordered. No MRI has been done to date. [facility] [place] . He is currently out of work at this time. [facility] Medical History (Updated 12/06/20 @ 10:02 by Kevin Magallanes MD) Diverticulitis Kidney calculi Tonsil and adenoid disease, chronic Surgic al History History of tonsillectomy and adenoidectomy Social History (Updated 12/06/20 @ 09:28 by Anupama Srivastava) Does the Patient have a Healthcare Proxy: No Does Patient have a DNR?: No Does Patient have a Living Will?: No current occupational status: employed current occupation: [employer] Recent Travel (where): No Smoking Status: Current every day smoker tobacco type: cigarettes alcohol intake: current alcohol intake frequency: 0-2 drinks per day substance use type: marijuana Review of Systems Const Denies anorexia, Denies excessive sweating, Denies fatigue, Denies fever(s), Denies headache(s), Denies weight gain and Denies weight loss Eyes Denies blurry vision, Denies change in vision, Denies dry eyes, Denies irritation, Denies itchy eyesand Denies loss of vision ENT Denies abnormal hearing, Denies dysphagia, Denies dizziness, Denies headache(s), Denies lip swelling, Denies nasal congestion, Denies nasal discharge, Denies disequilibrium, Denies sinus pain,Denies sore throat and Denies throat swelling Card Denies chest pain, Denies pedal edema, Denies lightheadedness, Denies palpitations and Denies dyspnea Resp Denies cough, Denies excessive phlegm production, Denies pain on inspiration, Denies dyspnea and Denies wheezing GI Denies abdominal pain, Denies change in bowel habits, Denies dysphagia, Denies early satiety, Deniesheartburn, Denies diarrhea, Denies nausea and Denies vomiting Denies difficulty urinating, Denies flank pain, Denies urinary frequency, Denies urin harmony incontinence and Denies urinary urgency Musc Denies back pain, Reports arthralgias (Left knee), Denies limited range of motion, Denies muscle cramps and Denies muscle weakness Skin/Breast Denies breast pain, Denies change in pigmentation, Denies lesions, Denies nail changes, Denies rash and Denies unusual bruising Neuro Denies abnormal hearing, Denies dizziness, Denies headache(s), Denies loss of vision, Denies memory loss, Denies paresthesias and Denies disequilibrium Psych Denies abnormal sleep pattern, Denies anxiety, Denies change in appetite, Denies depression, Denies irritability and Denies memory loss Endo Denies cold intolerance, Denies excessive sweating, Denies fatigue, Denies polyphagia, Denies polydipsia, Denies polyuria and Denies palpitations Román/Lymph Denies easy bleeding, Denies easy bruising and Denies lymphadenopathy Aller/Immun Denies urticaria, Denies itchy eyes, Denies lip swelling, Denies seasonal rhinorrhea, Denies throat swelling and Denies wheezing Exam Const General: cooperative, healthy appearing, comfortable, well developed and well groomed Nutritional Appearance: average body habitus Orientation: alert, awake and oriented x3 HENDE Head: normal to inspection, normocephalic and atraumatic Eyes General: appearance normal, both eyes and all related structures Pupils: PERRL Neck Neck: normal visual inspection, full ROM and nontender Chest Chest: normal inspection of the chest Resp Effort Inspection: normal respiratory effort Skin Lesions: no lesions Rashes: no rashes Trauma: no lacerations or abrasions Neuro General: patient alert, patient awake and patient oriented x3 Cognition: normal cognition Speech: speech normal Motor: muscle tone normal throughout Extrem Other: Examination of the left knee reveals full range of motion. There is no soft tissue swelling and the patient does not have a left knee effusion. Collateral ligament stress testing in both flexion and extension is normal. Danita's test is negative. Posterior drawer sign is negative. Patient has point tenderness along the medial joint line. Patient has no lateral joint line tenderness. His extensor mechanism is intact. Peripheral pulses on the affected side are normal. Logrolling of the left hip does not elicit pain. Patient has no significant muscle atrophy about the left knee. He presents to clinic using a cane. Psych Appearance: grossly normal Thought Process: normal Thought Content: normal Insight: insight good Assessment Plan Assessment Plan (1) Acute medial meniscus tear of left knee: Status: Acute Code(s): S83.242A - Other tear of medial meniscus, current injury, left knee, initial encounter SNOMED Code(s): 778373947 Category: Medical Qualifiers: Encounter type: initial encounter Qualified Code(s): S83.242A - Other tear of medial meniscus, current injury, left knee, initial encounter Plan - Kevin Magallanes MD: Clinical exam is consistent with a medial meniscus tear. Prior x-rays obtained of the left knee arenormal. Exam is not consistent with a tear of the anterior cruciate ligament. An MRI scan will be obtained. The patient will follow up with me as soon as possible after the MRI scan has been completed. All questions were answered. Coding Level of Care Code 60038 New Pt Intermediate Comp Exam Expanded Problem Focused Diagnoses Acute medial meniscus tear of left knee S83.242A Encounter type: initial encounter <Electronically signed by Kevin Magallanes MD> 12/06/20 1003 Name Value Range Interpretation Code Description Data Argelia rce(s) Supporting Document(s) ID Date Data Source [id number] 10/28/2020 10:58:00 PM EDT [facility] [address] [place] [address] [phone] NAME SEX PT STATUS ACCOUNT NUMBER CHRISTI NEWBERRY [facility] ER [id number] ORDERING PHYSICIAN LOCATION MEDICAL RECORD NO. Shad Walsh MD ER [id number] ATTENDING PHYSICIAN DATE OF DATE OF EXAM/TIME Elle Jeronimo NP 1975 10/28/202211 TYPE / EXAM Xray Knee comp 4 or more LT REASON FOR EXAM fell off roof;pain L knee Clinical History/Indication for Exam: fell off roof;pain L knee RADIOGRAPHS OF THE LEFT KNEE COMPLETE 4 OR MORE VIEWS INDICATION: fell off roof;pain L knee COMPARISON: No relevant prior studies available. FINDINGS: Bones/joints: No fracture, bone lesion, or dislocation is seen. Normal joint space of the knee. No knee effusion is seen. Normal bone mineralization. Soft tissues: Normal soft tissue contours. No acute soft tissue findings. IMPRESSION: No acute fracture or dislocation. No evidence of knee effusion. REPORT SIGNATURE ON FILE 10/28/2020 (22:58 Eastern Time ) Signed by: King Hdez M.D. Reported By King Hdez MD on 10/28/202257 Signed By King Hdez MD on 10/28/202257 Date Time CC: King Hdez MD; Elle Jeronimo Techn: KENNEDY Trans Dt/Tm: Trans by: DT Prt Dt/Tm: [id number]: Total DLP = 0.00 mGy-cm Fluoroscopy Time (in secs): Name Value Range Interpretation Code Description Data Argelia rce(s) Supporting Document(s) ID Date Data Source [id number] 10/28/2020 10:13:00 PM EDT [facility] ED Physician Documentation NAME: CHRISTI NEWBERRY : 1975 AGE: 45 MR#: [id number] SERVICE DATE: 10/28/[address]: Shad Walsh MD PRIMARY CARE DR: Elle Jeronimo ROOM#: Musculoskeletal General Chief Complaint: Musculoskeletal Stated Complaint: FALL,KNEE PAIN Time Seen by Provider: 10/28/20 22:05 History of present illness HPI Narrative:: 10;00PM: C : L knee pain X 6 hrs. Pt is a 45 yo M who states today 4:00 PM while shoveling snow and ice off his roof he accidentally slipped off the roof and fell to the ground 12 feet below striking his left knee on the ice covered grass. Patient developed immediatepain in the left knee worse with motion of the left knee or weightbearing. He drank 6 ounces of tequila with partial relief. He took no medication for this PI. Girlfriend drove patient to ED. Patient walked into ED. Pt denies associated head, neck, back, spine, chest, abdominal, other 3 extremity trauma or pain. Location of complaint:: left knee Mechanism of injury:: fall off roof 12' no LOC denies hitting head Redness?: No Deformity?: No Swelling?: No Ecchymosis?: No Shortening of limb?: No Distal Rotation:: No rotation Distal CMS intact?: Yes Open Fracture?: No Ambulation Assistive Devices: None Gait steady?: Yes Weight Bearing Status: Full Weight Bearing Limited ROM?: No Numbness or tingling?: No Allergies/Home Meds Allergies Allergy/AdvReac Type Severity Reaction Status Date / Time No Known Drug Allergies Allergy Verified 05/01/19 13:29 Home Medications Medication Instructions Recorded Confirmed Last Taken Type thiamine HCl (vitamin B1) 100 mg PO DAILY #30 tab 05/01/19 Unknown Rx PMH (from Triage) Patient Medical History PMH Reviewed/Updated as Needed: Yes PMH/PSH from Triage: Medical History (Updated 02/16/19 @ 14:01 by Albino Phillips MD) History of tonsillectomy and adenoidectomy (Medical) Z98.890 Tonsil and adenoid disease, 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 Surgical History (Updated 02/16/19 @ 12:14 by Sara Ventura) History of tonsillectomy and adenoidectomy (Surgical) Z98.890 Hx Drug Resistant Infections Hx MRSA: (Methicillin-resistant Staphylococcus aureus): No Hx VRE (Vancomycin-resistant enterococci): No Hx C.Diff: No Hx CRKP: No Hx Other Resistant Infection?: No Isolation: Standard precautions Hx Recent Travel Out of the country within 10 days (where): No Hx Fever: No Hx Fever with a rash?: No Nurse screening for coronavirus: Recent Travel outside the No country (where) Has patient experienced No coronavirus symptoms Social History Does patient have suicidal/homicidal thoughts or ideation?: No Are you in a relationship with/Does anyone hit you, yell/swear at you, steal from you?: No Substance Use Hx Alcohol Use: Yes Hx Substance Use: No Hx Substance Use Treatment: Yes Second Hand Smoke Exposure: Yes Smoking Status: Current every day smoker Tobacco Use Years smoked:: over 20 yrs. Hx Chewing Tobacco Use: No Vaccination History Hx/Date of Tetanus, Diphtheria Vaccination: No Hx/Date of Influenza Vaccination: No Hx/Date of Pneumococcal Vaccination: No Immunizations Up to Date: No ROS Review of Systems Constitutional: Denies fever, chills, sweats, weakness and malaise Eyes: Denies vision change, eye discharge/drng, redness and eye pain ENT: Denies nasal pain, nasal discharge, nasal congestion and throat pain Respiratory: Denies cough and SOB Cardiovascular: Denies chest pain, hypertension, light headedness, dyspnea on exertion and syncope Gastrointestinal: Denies vomiting and abdominal pain Genitourinary-Male: Denies dysuria and hematuria Musculoskeletal: Reports other (+ L knee pain.); Denies neck pain, shoulder pain, arm pain, back pain, hand pain and foot pain Neurologic: Denies weakness, numbness, headache, incoordination, change in speech, confusion, dizziness, vertigo, lightheadedness, loss of consciousness and paresthesias [facility] Medical History Tonsil and adenoid disease, chronic Surgical History History of tonsillectomy and adenoidectomy Social History (Updated 03/15/19 @ 10:26 by Lorenza Munoz) Does the Patient have a Healthcare Proxy: No Does Patient have a DNR?: No Does Patient have a Living Will?: No Hx Recent Travel (where): No Smoking Status: Current every day smoker tobacco type: cigarettes Physical Exam General General appearance: other (WDWN middle-aged white male NAD. No pallor, cya nosis, icterus, or diaphoresis. Alert. [place] x3.) Head Head exam: Present atraumatic and normocephalic Eye Eye exam: Absent scleral icterus, conjunctival injection, periorbital swelling and periorbital tenderness ENT ENT exam: Present normal orophraynx Neck Neck exam: Present supple; Absent tenderness, meningismus, lymphadenopathy and thyromegaly Respiratory Respiratory exam: Present normal lung sounds bilaterally; Absent respiratory distress, wheezes, rales, rhonchi, stridor and chest wall tenderness Cardiovascular Cardiovascular Exam: Present regular rate and no murmur; Absent rubs and gallop GI/Abdominal GI/Abdominal exam: Present Abd soft, bowel sounds present all quadrents; Absent tenderness, organomegaly and mass Extremities Exam Extremities exam: Present other (On examination of the left lower extremity there is no break in theskin. There is a 2 cm diameter moderately tender ecchymosis over the patella. There is tenderness over the medial knee. (Continued)) Back Exam Back exam: Absent CVA tenderness (R), CVA tenderness (L), paraspinal tenderness and vertebral tenderness Neurological Exam Neurological exam: Present alert and oriented X3 Vital Signs Vital Signs: Vital Signs 10/28/20 21:26 Temperature 98.4 F Pulse Rate 73 Respiratory Rate 16 Blood Pressure 134/75 O2 Sat by Pulse Oximetry 96 MDM (comprehensive) Medical Decision Making Free Text/Narative:: (Continuation of physical examination) Popliteal, dorsalis pedis, and posteriortibial pulses are +2/4. All 5 toes are pink, warm, with good capillary refill. Left knee AROM =0degrees to +100 degrees. In the supine position I observed patient lift left leg with extended left knee off exam table with ease. The other 3 extremities are without break in skin, swelling, ortenderness. 12:14 AM: X-ray left knee (radiologist): No fracture. My working diagnosis: Left knee pain. Rx: I suspect patient has partial tear of the medial collateral ligament and possibly the medial meniscus. 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 Off work. Rest. Knee immobilizer. Crutches. Ibuprofen. Orthopedic referral. Plan Visit Medications Administered ED medications:: Medications Discontinued Medications Generic Name Dose Route Start Last Admin Trade Name Freq PRN Reason Stop Dose Admin Ibuprofen 600 mg 10/28/20 22:12 10/28/20 22:22 Ibuprofen 600 Mg Tab PO 10/28/20 22:13 600 mg 1T ONE Administration Discharge Plan Admission/Discharge Dx Primary DC Diagnosis: Left knee pain ED Provider: Fang Walsh ED Status: Ready for Discharge Time Seen by Provider: 10/28/20 22:05 Triaged At: 10/28/20 21:26 Discharge Detail Disposition: Home, Self-Care Med Rec New Prescriptions: No Action thiamine HCl (vitamin B1) 100 mg tablet 100 mg PO DAILY Qty: 30 RF: 0 Forms Forms Work Release: Work/School/Activ/Gym Release Follow Up Care/Instructions Diet/Activity/Wound Care..: Rest. No weightbearing left lower extremity; use crutches. Wear knee immobilizer continuously until otherwise advised by follow-up MD. No work until otherwise advised by follow-up MD. Take ibuprofen 600 mg (3, 200 mg [id number] tablets) with food every 8 hours as needed. Do not consume alcohol beverage and take ibuprofen on the same day. An Orthopedic referral has been made for you; please keep that appointment. *Discharge Patient* Discharge Orders: Discharge Order (Routine); Ordered 10/29/20 Ordered By: Fang Walsh I nterventions Interventions: ED Musculoskeletal Last Done: 10/28/20 21:29 Report Signers: <Electronically signed by Fang Walsh MD> Fang Walsh MD 10/29/20 0024 Fang Walsh MD SIGNATURE DA Report Cosigners: D: [facility]28[facility]202212 [facility] CC: Elle Jeronimo Name Value Range Interpretation Code Description Data Argelia rce(s) Supporting Document(s) Procedure Social History Code Duration Value Status Description Data Source(s ) 02/17/2021 10:37:31 AM EDT Current every day smoker co mpleted Current every day smoker [facility] Smoking 02/17/2021 10:37:00 AM EDT Current every day smoker co mpleted Current every day smoker [facility] 02/15/2021 08:31:52 PM EDT Yes completed Yes [facility] 02/15/2021 05:53:50 PM EDT No completed No [facility] 02/15/2021 05:53:50 PM EDT No completed No [facility] 02/15/2021 05:53:50 PM EDT Yes completed Yes [facility] 02/15/2021 05:53:50 PM EDT Former smoker completed Former smoker [facility] Smoking 02/15/2021 05:53:00 PM EDT Former smoker completed Former smoker [facility] 12/06/2020 09:28:55 AM EDT Current every day smoker co mpleted Current every day smoker [facility] 12/06/2020 09:28:55 AM EDT Current every day smoker co mpleted Current every day smoker [facility] Smoking 12/06/2020 09:28:00 AM EDT Current every day smoker co mpleted Current every day smoker [facility] 10/28/2020 10:16:03 PM EDT No completed No [facility] 10/28/2020 10:16:03 PM EDT Yes completed Yes [facility] 10/28/2020 10:16:03 PM EDT No completed No [facility] 10/28/2020 10:16:03 PM EDT Yes completed Yes [facility] 10/28/2020 10:16:03 PM EDT No completed No [facility] 10/28/2020 10:16:03 PM EDT Yes completed Yes [facility] 10/28/2020 10:16:03 PM EDT Current every day smoker co mpleted Current every day smoker [facility] Smoking 10/28/2020 10:16:00 PM EDT Current every day smoker co mpleted Current every day smoker [facility] Vital Signs ID Date Data Source UNK Name Value Range Interpretation Code Description Data Source(s) Body temperature 97.8 [degF] 97.8 [degF] [facility] ([facility] ) Body height 71 [in_i] 71 [in_i] [facility] ([facility] ) 5'11" Body weight 223.00 [lb_av] 223.00 [lb_av] [facility] T ([facility]) Body mass index (BMI) [Ratio] 31.1 kg/m2 31.1 k g/m2 [facility] ([facility] )
[2021-07-15 23:30] LABS: HEMATOCRIT 47.5 % (42.0-52.0); HEMOGLOBIN 16.4 g/dl (13.5-17.5); MEAN CORPUSCULAR HEMOGLOBIN 33.3 pg (27.0-33.0); MEAN CORPUSCULAR HGB CONC 34.5 g/dl (32.0-36.5); MEAN CORPUSCULAR VOLUME 96.3 fl (80.0-96.0); PLATELET COUNT, AUTOMATED 140 10^3/uL (150-450); RED BLOOD COUNT 4.93 10^6/uL (4.30-6.10); WHITE BLOOD COUNT 8.7 10^3/uL (4.0-10.0)
[2021-07-16 00:04] LABS: BLOOD UREA NITROGEN 12 MG/DL (7-18); CARBON DIOXIDE LEVEL 26 MEQ/L (21-32); CHLORIDE LEVEL 101 MEQ/L (98-107); CREATININE FOR GFR 0.87 MG/DL (0.70-1.30); GLOMERULAR FILTRATION RATE > 60.0 (>60); GLUCOSE, FASTING 160 MG/DL (70-100); POTASSIUM SERUM 3.5 MEQ/L (3.5-5.1); SODIUM LEVEL 139 MEQ/L (136-145)
[2021-07-16 00:05] LABS: ACETAMINOPHEN LEVEL < 2.0 UG/ML (10.0-30.0); ALBUMIN 3.5 GM/DL (3.2-5.2); ALT/SGPT 75 U/L (12-78); BILIRUBIN,DIRECT 0.8 MG/DL (0.0-0.2); BILIRUBIN,TOTAL 1.9 MG/DL (0.2-1.0); CALCIUM LEVEL 8.3 MG/DL (8.5-10.1); ETHYL ALCOHOL (ETHANOL) 0.132 % (0.000-0.010); SALICYLATE LEVEL < 1.7 MG/DL (5.0-30.0); TOTAL PROTEIN 7.3 GM/DL (6.4-8.2)
[2021-07-16 00:25] LABS: RSV AMPLIFICATION NEGATIVE (NEGATIVE)
--- OUTSIDE RECORDS SUMMARY | 2021-07-16 01:41 | CCD ---
Author Author [facility] Organization [facility] Address Unknown Phone Unavailable Care Team Providers Care Physician General Practice Name Role Phone FLAKITO, A EMILY COLLINS [...] Brown MD Unavailable Unavailable Phani, A Elle [employer]ION EN[employer]ELOPE MAKER HAND Unavailable Unavailable Phani, A Elle [employer]PANSION EN[employer]ELOPE MAKER HAND Unavailable Unavailable Phani, A Elle EXP[employer]ION EN[employer]ELOPE MAKER HAND Unavailable Unavailable Phani, A Elle EXP[employer]ION ENVELOPE MAKER HAND Unavailable Unavailable Phani, A Elle EXPANSION ENVELOPE MAKER HAND Unavailable Unavailable Phani, A Elle EXP[employer]ION EN[employer]ELOPE MAKER HAND Unavailable Unavailable Phani, A Elle EXPANSION ENVELOPE MAKER HAND Unavailable Unavailable Phani, A Elle EXPANSION ENVELOPE MAKER HAND Unavailable Unavailable Phani, A Elle EXPANSION ENVELOPE MAKER HAND Unavailable Unavailable Phani, A Elle EXPANSION ENVELOPE MAKER HAND Unavailable Unavailable Phani, A Elle EXPANSION ENVELOPE MAKER HAND Unavailable Unavailable Phani, A Elle EXPANSION ENVELOPE MAKER HAND Unavailable Unavailable Phani, A Elle EXPANSION ENVELOPE MAKER HAND Unavailable Unavailable Phani, A Elle EXPANSION ENVELOPE MAKER HAND Unavailable Unavailable Phani, A Elle EXPANSION ENVELOPE MAKER HAND Unavailable Unavailable Phani, A Elle EXPANSION ENVELOPE MAKER HAND Unavailable Unavailable Phani, A Elle EXPANSION ENVELOPE MAKER HAND Unavailable Unavailable Phani, A Elle EXPANSION ENVELOPE MAKER HAND Unavailable Unavailable Phani, A Elle EXPANSION ENVELOPE MAKER HAND Unavailable Unavailable Phani, A Elle EXPANSION ENVELOPE MAKER HAND Unavailable Unavailable Phani, A Elle EXPANSION EN[employer]ELOPE MAKER HAND Unavailable Unavailable Phani, A Elle EXPANSION ENVELOPE MAKER HAND Unavailable Unavailable Phani, A Elle EXPANSION ENVELOPE MAKER HAND Unavailable Unavailable Phani, A Elle EXPANSION ENVELOPE MAKER HAND Unavailable Unavailable Phani, A Elle EXPANSION ENVELOPE MAKER HAND Unavailable Unavailable Phani, A Elle EXPANSION ENVELOPE MAKER HAND Unavailable Unavailable Phani, A Elle EXPANSION ENVELOPE MAKER HAND Unavailable Unavailable Phani, A Elle EXPANSION ENVELOPE MAKER HAND Unavailable Unavailable Phani, A Elle EXPANSION ENVELOPE MAKER HAND Unavailable Unavailable Phani, A Elle EXPANSION ENVELOPE MAKER HAND Unavailable Unavailable Phani, A Elle EXPANSION ENVELOPE MAKER HAND Unavailable Unavailable Phani, A Elle EXPANSION ENVELOPE MAKER HAND Unavailable Unavailable Phani, A Elle EXPANSION ENVELOPE MAKER HAND Unavailable Unavailable Phani, A Elle EXPANSION ENVELOPE MAKER HAND Unavailable Unavailable Phani, A Elle EXPANSION ENVELOPE MAKER HAND Unavailable Unavailable Phani, A Elle EXPANSION ENVELOPE MAKER HAND Unavailable Unavailable Phani, A Elle EXPANSION ENVELOPE MAKER HAND Unavailable Unavailable Phani, A Elle EXPANSION ENVELOPE MAKER HAND Unavailable Unavailable Phani, A Elle EXPANSION ENVELOPE MAKER HAND Unavailable Unavailable Phani, A Elle EXPANSION ENVELOPE MAKER HAND Unavailable Unavailable Phani, A Elle EXPANSION ENVELOPE MAKER HAND Unavailable Unavailable Phani, A Elle EXPANSION ENVELOPE MAKER HAND Unavailable Unavailable Phani, A Elle EXPANSION ENVELOPE MAKER HAND Unavailable Unavailable Phani, A Elle EXPANSION ENVELOPE MAKER HAND Unavailable Unavailable Phani, A Elle EXPANSION ENVELOPE MAKER HAND Unavailable Unavailable Phani, A Elle EXPANSION ENVELOPE MAKER HAND Unavailable Unavailable Phani, A Elle EXPANSION ENVELOPE MAKER HAND Unavailable Unavailable Phani, A Elle EXPANSION ENVELOPE MAKER HAND Unavailable Unavailable Phani, A Elle [employer] EN[employer]ELOPE MAKER HAND Unavailable Unavailable PRECIOUS, ROMI MD Unavailable Unavailable [...] is protected by Article 27-F of the [facility] Public Health law. If you continue you may have access to information: Regarding HIV / AIDS; Provided by facilities licensed or operated by the [facility] Office of Mental Health; or Provided by the [facility] Office for People With Developmental Disabilities. If such information is present, then the following [facility] mandated warning applies: This information has been [...] law may result in a fine or long term sentence or both. A general authorization for the release of medical or other information is NOT sufficient authorization for further disc losure. Allergies and Adverse Reactions Type Description Substance Reaction Status Data Source(s ) Drug allergy No Known Drug Allergies No Known Drug Allergies [facility] Encounters Encounter Providers Location Date Indications Data Source(s ) Emergency Attender: ROMI Elkins nder: EMILY ABRAHAM MDAdmitter: ROMI MEYERS MD 02/15/2021 02:10:00 PM EDT - 02/17/2021 03:05:00 PM EDT DIVERTICULITIS [facility] DIVERTICULITIS Patient discharged. Outpatient Attender: Kevin Magallanes MDReferrer: Elle gastelum NP 12/12/2020 10:40:00 AM EDT - 12/12/2020 11:45:00 AM EDT [facility] Outpatient Attender: Kevin Magallanes MD 12/07/2020 05: 00:00 PM EDT ACUTE MEDIAL MENISCUS TEAR [facility] ACUTE MEDIAL MENISCUS TEAR Outpatient Attender: Kevin Magallanes MDReferrer: Elle gastelum NP 12/06/2020 09:19:00 AM EDT - 12/06/2020 10:01:00 AM EDT [facility] Outpatient Attender: Jose Giraldo MD Physical Therapy 12/2020 01:00:00 PM EDT [facility] ([facility] Emergency Attender: Fang Walsh MDConsultant: CHRISTI MCNLUTY 10/28/2020 09:26:00 PM EDT - 10/29/2020 12:43:00 AM EDT FALL,KNEE PAIN [facility] FALL,KNEE PAIN Patient discharged. Functional Status Medications Medication Brand Name Start Date Product Form Dose Route Admi nistrative Instructions Pharmacy Instructions Status Indications Reaction Description Data Source(s) Ciprofloxacin 500 MG Oral Tablet Ciprofloxacin Hcl (Ci pro) 500 mg tablet Ciprofloxacin Hcl (Cipro) 500 mg tablet 02/17/2021 02:06:37 PM EDT 50 0 MG active [facility] Metronidazole 500 MG Oral Tablet Metronidazole 02/17/2021 02:05:39 PM EDT 500 MG active [facility] Metronidazole 500 MG Oral Tablet METRONIDAZOLE 02/17/2021 [...] DAY WITH FOOD SOLD: 02/18/[address] [facility] [place] (No Known Home Medications) 12/06/2020 09:27:07 AM EDT active [facility] Thiamine 100 MG Oral Tablet Thiamine Hcl (Vitamin B1) Thiami ne Hcl (Vitamin B1) 05/01/2019 05:55:10 PM EDT 100 MG completed [facility] Insurance Providers Payer name Policy type / Coverage type Policy ID Covered libertarian ID Covered libertarian's relationship to quintero Policy Quintero Plan Information [facility] MEDICAID [id number] [facility] 7 [id number] SANA [id number] SP [id number] [address] [facility] O [id number] S [id number] Problems, Conditions, and Diagnoses No Information Surgeries/Procedures Procedure Description Date Indications Data Source(s) Computed tomography of abdomen and pelvis with contrast (pro cedure) 02/15/2021 03:42:00 PM EDT [facility] SARS-CoV-2 Rapid RNA (RT-PCR) 02/15/2021 12:00:00 AM E DT [facility] Blood culture for bacteria, including anaerobic screen (proc edure) 02/15/2021 12:00:00 AM EDT [facility] MRI Knee Left w/o 12/07/2020 05:56:00 PM EDT [facility] RADIOLOGIC EXAMINATION KNEE 1/2 VIEWS 11/19/2020 12:00 :00 AM EDT [facility] ([facility]) X-ray of left knee (procedure) 10/28/2020 10:12:00 PM EDT [facility] X-ray of left knee (procedure) 10/28/2020 10:12:00 PM EDT [facility] Results ID Date Data Source [id number] 02/17/2021 10:34:00 AM EDT [facility] Name: CONIOSVALDO : 1975 Age: 45 MR#: [id number] Admit Date: 02/15/21 Provider: Ni Sam NP [...] bedside byDr. MEYERS, patient admitted to the [facility] with primary diagnosis of diverticulitis. Initial [...] % (Auto) 60.4, Lymph % (Auto) 28.1, [place] % (Auto) 8.7, Eos % (Auto) 2.4, [...] Dictated by: <Electronically signed by Ni Sam EXPANSION ENVELOPE MAKER HAND> Ni Sam NP 02/17/21 1408 Ni Sam NP SIGNATURE DA Report Cosigners: <<Signature on File>> Romi Meyers MD 02/17/21 3013 <Electronically signed by Romi Meyers MD> Romi Meyers MD 02/17/21 1458 D: [facility] 02/17/21 1034 T: [facility] 02/17/21 1034 CC: Name Value Range Interpretation Code Description Data Argelia rce(s) Supporting Document(s) ID Date Data Source [id number] 02/17/2021 07:24:00 AM EDT [facility] Name Value Range Interpretation Code Description Data Argelia rce(s) Supporting Document(s) Leukocytes [#/volume] in Blood by Automated count 8.7 10*3/uL 4.45-10 .71 N [facility] Erythrocytes [#/volume] in Blood by Automated count 4.71 10*6/uL 4.3- 6.1 N [facility] Hemoglobin [Moles/volume] in Blood 15.9 g/dL 13-18 N [facility] Hematocrit [Volume Fraction] of Blood by Automated count 45.9 % 4 2-52 N [facility] Erythrocyte mean corpuscular volume [Ent itic volume] in Cord blood by Automated count 98 fL 80-96 Above high normal [facility] Erythrocyte mean corpuscular hemoglobin [Entitic mass] by Au tomated count 34 pg 27-31 Above high normal [facility] Erythrocyte mean corpuscular hemoglobin concentration [Mass/volume] in Cord blood 35 g/dL 33-37 N [facility] ital Erythrocyte distribution width [Entitic volume] by Automated count 13 % 11-15 N [facility] Platelets [#/volume] in Blood by Automated count 138 10*3/uL 130-472 N [facility] Platelet mean volume [Entitic volume] in Blood 10.4 fL 9.1-13.1 N [facility] Neutrophils/100 leukocytes in Blood by Automated count 60.4 % 41- 77 N [facility] Neutrophils [#/volume] in Blood by Automated count 5.3 U 1.7-7.6 N [facility] Lymphocytes/100 leukocytes in Blood by Automated count 28.1 % 14- 46 N [facility] Lymphocytes [#/volume] in Blood by Automated count 2.5 U 0.6-4.6 N [facility] Monocytes/100 leukocytes in Blood by Automated count 8.7 % 4-12 N [facility] Monocytes [#/volume] in Blood by Automated count 0.8 U 0.2-1.2 N [facility] Eosinophils/100 leukocytes in Blood by Automated count 2.4 % 0-7 N [facility] Eosinophils [#/volume] in Blood by Automated count 0.2 U 0.0-0.5 N [facility] Basophils/100 leukocytes in Blood by Automated count 0.3 % 0.4-1.3 Below low normal [facility] Basophils [#/volume] in Blood by Automated count 0.0 U 0.0-0.2 N [facility] NUCLEATED RED BLOOD CELL 0 % [facility] NUCLEATED RED BLOOD CELL# 0 U [facility] Immature granulocytes [Presence] in Blood by Automated count 0-2 N [facility] Immature granulocytes [#/volume] in Blood by Automated count 0.0 U 0-0.1 N [facility] Manual Differential panel - Blood NO [facility] ID Date Data Source [id number] 02/17/2021 07:52:00 AM EDT [facility] Name Value Range Interpretation Code Description Data Argelia rce(s) Supporting Document(s) Urea nitrogen [Mass/volume] in Serum or Plasma 5 mg/dL 9-23 Below low normal [facility] Sodium [Moles/volume] in Serum or Plasma 143 mmol/L 132-146 [facility] Potassium [Moles/volume] in Serum or Plasma 3.5 mmol/L 3.5-5.5 [facility] Chloride [Moles/volume] in Serum or Plasma 110 mmol/L 99-109 Above high normal [facility] Carbon dioxide, total [Moles/volume] in Serum or Plasma 28 mmol/L 20 -31 [facility] Anion gap in Serum or Plasma 9 mmol/L 8-16 [facility] Glucose [Mass/volume] in Serum or Plasma 99 mg/dL 74-106 N [facility] Creatinine 0.7 mg/dL 0.5-1.1 [facility] Glomerular filtration rate/1.73 sq M.pre dicted [Volume Rate/Area] in Serum or Plasma Greater Than 60 ABOVE 60 [facility] Alanine aminotransferase [Enzymatic acti vity/volume] in Serum or Plasma by With P-5'-P 47 U/L 10-49 N [facility] ital Aspartate aminotransferase [Enzymatic ac tivity/volume] in Serum or Plasma by With P-5'-P 53 U/L 0-33 Above high normal [facility] Alkaline phosphatase [Enzymatic activity/volume] in Serum or Plasma 86 U/L 45-129 N [facility] Calcium [Mass/volume] in Serum or Plasma 8.2 mg/dL 8.5-10.1 Below low normal [facility] Bilirubin.total [Mass/volume] in Serum or Plasma 2.5 mg/dL 0.3-1.2 Above high normal [facility] Albumin [Mass/volume] in Serum or Plasma by Bromocresol purple (BCP) dye binding method 3.3 g/dL 3.2-4.8 N [facility] ital Protein [Mass/volume] in Serum or Plasma 6.4 g/dL 5.7-8.2 [facility] ID Date Data Source [id number] 02/16/2021 10:31:00 AM EDT [facility] Name: CHRISTI NEWBERRY : 1975 Age: 45 MR#: [id number] Admit Date: 02/15/21 Provider: Ni Sam NP [...] 02/15/21 18:20 Observation Order [STATUS] Routine Location: [facility] Primary diagnosis: diverticulitis Isolation: Standard precautions [...] 7 5.8, Lymph % (Auto) 13.9 L, [place] % (Auto) 9.4, Eos % (Auto) 0.1, [...] % (Auto) 56.9, Lymph % (Auto) 32.1, [place] % (Auto) 9.0, Eos % (Auto) 1.7, [...] perforation or abscess without bleeding SNOMED Code(s): 318097789 (Problem) Plan of care:: Identified on imaging [...] if neded Discussed local resources such as [employer] Encouraged limited use of ETOH Monitor for withdrawls and treat based on protocol Thiamine and MVI 3. Hypokalemia will continue to monitor potassium levels daily supplement if indicated 4. Hypomagnesemia Will monitor levels during stay supplementation provided iv today of 2 grams 5. 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 02/16/21 1031 T: [facility] 02/16/21 1031 CC: Name Value Range Interpretation Code Description Data Argelia rce(s) Supporting Document(s) ID Date Data Source [id number] 02/16/2021 09:01:00 AM EDT [facility] @02/16/21 0802: MANUAL DIFF added. RFLXG = DIFF. @02/16/21 0802: MANUAL DIFF added. RFLXG = DIFF. Name Value Range Interpretation Code Description Data Argelia rce(s) Supporting Document(s) Urea nitrogen [Mass/volume] in Serum or Plasma 6 mg/dL 9-23 Below low normal [facility] Sodium [Moles/volume] in Serum or Plasma 144 mmol/L 132-146 [facility] Potassium [Moles/volume] in Serum or Plasma 3.5 mmol/L 3.5-5.5 [facility] Chloride [Moles/volume] in Serum or Plasma 110 mmol/L 99-109 Above high normal [facility] Carbon dioxide, total [Moles/volume] in Serum or Plasma 28 mmol/L 20 -31 N [facility] Anion gap in Serum or Plasma 10 mmol/L 8-16 N [facility] Glucose [Mass/volume] in Serum or Plasma 102 mg/dL 74-106 N [facility] Creatinine 0.6 mg/dL 0.5-1.1 [facility] Glomerular filtration rate/1.73 sq M.pre dicted [Volume Rate/Area] in Serum or Plasma Greater Than 60 ABOVE 60 [facility] Alanine aminotransferase [Enzymatic acti vity/volume] in Serum or Plasma by With P-5'-P 44 U/L 10-49 N [facility] ital Aspartate aminotransferase [Enzymatic ac tivity/volume] in Serum or Plasma by With P-5'-P 38 U/L 0-33 Above high normal [facility] Alkaline phosphatase [Enzymatic activity/volume] in Serum or Plasma 87 U/L 45-129 N [facility] Calcium [Mass/volume] in Serum or Plasma 7.5 mg/dL 8.5-10.1 DL [facility] Repeated by: Regina Gentile 02/16/21 0900. Result Confirmation: 7.5 mg/dL Bilirubin.total [Mass/volume] in Serum or Plasma 3.0 mg/dL 0.3-1.2 Above high normal [facility] Albumin [Mass/volume] in Serum or Plasma by Bromocresol purple (BCP) dye binding method 3.0 g/dL 3.2-4.8 Below low normal [facility] Protein [Mass/volume] in Serum or Plasma 5.8 g/dL 5.7-8.2 No range defined, or normal ranges don't apply [facility] Repeated by: Regina Gentile 02/16/21 0901. Result Confirmation: 5.8 g/dL ID Date Data Source [id number] 02/16/2021 09:10:00 AM EDT [facility] @02/16/21 0802: MANUAL DIFF added. RFLXG = DIFF. @02/16/21 0802: MANUAL DIFF added. RFLXG = DIFF. Name Value Range Interpretation Code Description Data Argelia rce(s) Supporting Document(s) Leukocytes [#/volume] in Blood by Automated count 9.1 10*3/uL 4.45-10 .71 N [facility] Erythrocytes [#/volume] in Blood by Automated count 4.54 10*6/uL 4.3- 6.1 N [facility] Hemoglobin [Moles/volume] in Blood 15.2 g/dL 13-18 N [facility] Hematocrit [Volume Fraction] of Blood by Automated count 44.4 % 4 2-52 N [facility] Erythrocyte mean corpuscular volume [Ent itic volume] in Cord blood by Automated count 98 fL 80-96 Above high normal [facility] Erythrocyte mean corpuscular hemoglobin [Entitic mass] by Au tomated count 34 pg 27-31 Above high normal [facility] Erythrocyte mean corpuscular hemoglobin concentration [Mass/volume] in Cord blood 34 g/dL 33-37 N [facility] ital Erythrocyte distribution width [Entitic volume] by Automated count 13 % 11-15 N [facility] Platelets [#/volume] in Blood by Automated count 140 10*3/uL 130-472 N [facility] Platelet mean volume [Entitic volume] in Blood 10.4 fL 9.1-13.1 N [facility] Neutrophils/100 leukocytes in Blood by Automated count 56.9 % 41- 77 N [facility] Neutrophils [#/volume] in Blood by Automated count 5.2 U 1.7-7.6 N [facility] Lymphocytes/100 leukocytes in Blood by Automated count 32.1 % 14- 46 N [facility] Lymphocytes [#/volume] in Blood by Automated count 2.9 U 0.6-4.6 [facility] Monocytes/100 leukocytes in Blood by Automated count 9.0 % 4-12 N [facility] Monocytes [#/volume] in Blood by Automated count 0.8 U 0.2-1.2 [facility] Eosinophils/100 leukocytes in Blood by Automated count 1.7 % 0-7 N [facility] Eosinophils [#/volume] in Blood by Automated count 0.2 U 0.0-0.5 N [facility] Basophils/100 leukocytes in Blood by Automated count 0.2 % 0.4-1.3 Below low normal [facility] Basophils [#/volume] in Blood by Automated count 0.0 U 0.0-0.2 N [facility] NUCLEATED RED BLOOD CELL 0 % [facility] NUCLEATED RED BLOOD CELL# 0 U [facility] Immature granulocytes [Presence] in Blood by Automated count 0-2 N [facility] Immature granulocytes [#/volume] in Blood by Automated count 0.0 U 0-0.1 N [facility] Manual Differential panel - Blood Manual Diff Added [facility] ID Date Data Source [id number] 02/16/2021 09:10:00 AM EDT [facility] @02/16/21 0802: MANUAL DIFF added. RFLXG = DIFF. @02/16/21 0802: MANUAL DIFF added. RFLXG = DIFF. Name Value Range Interpretation Code Description Data Argelia rce(s) Supporting Document(s) Cells counted [#] 100 [facility] Neutrophils [#/volume] in Blood by Manual count 66 % 41-77 N [facility] Lymphocytes [#/volume] in Blood by Manual count 30 % 14-46 N [facility] Monocytes [#/volume] in Blood by Manual count 4 % 4-12 N [facility] Platelets [#/volume] in Blood by Estimate APPEARS NORMAL NORMAL [facility] Morphology [Interpretation] in Blood Narrative APPEARS NORMAL NORMAL [facility] ID Date Data Source [id number] 02/16/2021 08:26:00 AM EDT [facility] Name Value Range Interpretation Code Description Data Argelia rce(s) Supporting Document(s) Magnesium [Mass/volume] in Serum or Plasma 1.4 mg/dL 1.3-2.7 N [facility] ID Date Data Source [id number] 02/15/2021 06:33:00 PM EDT [facility] Name: CHRISTI NEWBERRY : 1975 Age: 45 MR#: [id number] Admit Date: 02/15/21 Provider: Romi Meeyrs MD Room #: 298 Consulting Provider: Dictation [...] No current occupational status: employed current occupation: [employer] Recent Travel (where): No Smoking Status: Former [...] (Auto) 75.8, Lymph % (Auto) 13.9 L, [place] % (Auto) 9.4, Eos % (Auto) 0.1, [...] and support of family/friends. [facility] the various health risks of smoking as well as its financial impact. Dictated by: <Electronically signed by Romi Meyers MD> Romi Meyers MD 02/16/21 0722 Romi Meyers MD SIGNATURE DA Report Cosigners: D: PHILIP 02/15/21 183 T: ARYVI 02/15/211832 CC: Name Value Range Interpretation Code Description Data Argelia rce(s) Supporting Document(s) ID Date Data Source [id number] 02/15/2021 06:25:00 PM EDT [facility] Name Value Range Interpretation Code Description Data Argelia rce(s) Supporting Document(s) Cepheid SARS/FLU/RSV RT-PCR SARS-COV-2 NOT DETECTED [facility] This lab was ordered by [facility] and reported by [facility] ID Date Data Source [id number] 02/15/2021 06:46:00 PM EDT [facility] Special Instructions: Lab may order repe at test if initial test elevatedPhysician If elevated, reflex second test in 4-6 hrs Name Value Range Interpretation Code Description Data Argelia rce(s) Supporting Document(s) Lactic w Rfx (if elevated) 1.4 mmol/L 0.5-2.0 N [facility] ID Date Data Source [id number] 02/20/2021 06:19:00 PM EDT [facility] Special Instructions: Lab may order repe at test if initial test elevatedPhysician If elevated, reflex second test in 4-6 hrs Name Value Range Interpretation Code Description Data Argelia rce(s) Supporting Document(s) Bacteria identified in Blood by Culture [facility] NO GROWTH AFTER 5 DAYS ID Date Data Source [id number] 02/15/2021 05:52:00 PM EDT [facility] ED Physician Documentation NAME: CONIOSVALDO : 1975 AGE: 45 MR#: [id number] SERVICE DATE: 02/15/[address]: Emily Abraham MD PRIMARY CARE DR: Elle Jeronimo [employer]ITY S[employer] ROOM#: HPI (Adult, General) General Chief Complaint: [...] (Auto) 75.8, Lymph % (Auto) 13.9 L, [place] % (Auto) 9.4, Eos % (Auto) 0.1, [...] rce(s) Supporting Document(s) ID Date Data Source [id number] 02/15/2021 05:38:00 PM EDT [facility] [address] [place] [address] [phone] NAME SEX PT STATUS ACCOUNT NUMBER CHRISTI NEWBERRY [facility] ER [id number] ORDERING PHYSICIAN LOCATION MEDICAL RECORD NO. Emily Abraham MD ER [id number] ATTENDING PHYSICIAN DATE OF DATE OF EXAM/TIME [...] rce(s) Supporting Document(s) ID Date Data Source [id number] 02/15/2021 04:38:00 PM EDT [facility] @02/15/21 1624: MANUAL DIFF added. RFLXG = DIFF. @02/15/21 1624: MANUAL DIFF added. RFLXG = DIFF. Name Value Range Interpretation Code Description Data Argelia rce(s) Supporting Document(s) Leukocytes [#/volume] in Blood by Automated count 11.7 10*3/uL 4.45-10.71 Above high normal [facility] Erythrocytes [#/volume] in Blood by Automated count 5.34 10*6/uL 4.3- 6.1 N [facility] Hemoglobin [Moles/volume] in Blood 17.9 g/dL 13-18 N [facility] Hematocrit [Volume Fraction] of Blood by Automated count 51.0 % 4 2-52 N [facility] Erythrocyte mean corpuscular volume [Ent itic volume] in Cord blood by Automated count 96 fL 80-96 N [facility] ital Erythrocyte mean corpuscular hemoglobin [Entitic mass] by Au tomated count 34 pg 27-31 Above high normal [facility] Erythrocyte mean corpuscular hemoglobin concentration [Mass/volume] in Cord blood 35 g/dL 33-37 N [facility] ital Erythrocyte distribution width [Entitic volume] by Automated count 13 % 11-15 N [facility] Platelets [#/volume] in Blood by Automated count 189 10*3/uL 130-472 N [facility] Platelet mean volume [Entitic volume] in Blood 9.7 fL 9.1-13.1 N [facility] Neutrophils/100 leukocytes in Blood by Automated count 75.8 % 41- 77 N [facility] Neutrophils [#/volume] in Blood by Automated count 8.9 U 1.7-7.6 Above high normal [facility] Lymphocytes/100 leukocytes in Blood by Automated count 13.9 % 14-46 Below low normal [facility] Lymphocytes [#/volume] in Blood by Automated count 1.6 U 0.6-4.6 N [facility] Monocytes/100 leukocytes in Blood by Automated count 9.4 % 4-12 N [facility] Monocytes [#/volume] in Blood by Automated count 1.1 U 0.2-1.2 N [facility] Eosinophils/100 leukocytes in Blood by Automated count 0.1 % 0-7 N [facility] Eosinophils [#/volume] in Blood by Automated count 0.0 U 0.0-0.5 N [facility] Basophils/100 leukocytes in Blood by Automated count 0.5 % 0.4-1 .3 N [facility] Basophils [#/volume] in Blood by Automated count 0.1 U 0.0-0.2 [facility] NUCLEATED RED BLOOD CELL 0 % [facility] NUCLEATED RED BLOOD CELL# 0 U [facility] Immature granulocytes [Presence] in Blood by Automated count 0-2 N [facility] Immature granulocytes [#/volume] in Blood by Automated count 0.0 U 0-0.1 N [facility] Manual Differential panel - Blood Manual Diff Added [facility] ID Date Data Source [id number] 02/15/2021 04:40:00 PM EDT [facility] @02/15/21 1624: MANUAL DIFF added. RFLXG = DIFF. @02/15/21 1624: MANUAL DIFF added. RFLXG = DIFF. Name Value Range Interpretation Code Description Data Argelia rce(s) Supporting Document(s) Urea nitrogen [Mass/volume] in Serum or Plasma 8 mg/dL 9-23 Below low normal [facility] Sodium [Moles/volume] in Serum or Plasma 139 mmol/L 132-146 N [facility] Potassium [Moles/volume] in Serum or Plasma 3.2 mmol/L 3.5-5.5 Below low normal [facility] Chloride [Moles/volume] in Serum or Plasma 102 mmol/L 99-109 [facility] Carbon dioxide, total [Moles/volume] in Serum or Plasma 31 mmol/L 20 -31 [facility] Anion gap in Serum or Plasma 9 mmol/L 8-16 N [facility] Glucose [Mass/volume] in Serum or Plasma 125 mg/dL 74-106 Above high normal [facility] Creatinine 0.8 mg/dL 0.5-1.1 [facility] Glomerular filtration rate/1.73 sq M.pre dicted [Volume Rate/Area] in Serum or Plasma Greater Than 60 ABOVE 60 [facility] Alanine aminotransferase [Enzymatic acti vity/volume] in Serum or Plasma by With P-5'-P 66 U/L 10-49 Above high normal [facility] Aspartate aminotransferase [Enzymatic ac tivity/volume] in Serum or Plasma by With P-5'-P 72 U/L 0-33 Above high normal [facility] Alkaline phosphatase [Enzymatic activity/volume] in Serum or Plasma 120 U/L 45-129 N [facility] Calcium [Mass/volume] in Serum or Plasma 8.7 mg/dL 8.5-10.1 N [facility] Bilirubin.total [Mass/volume] in Serum or Plasma 2.3 mg/dL 0.3-1.2 Above high normal [facility] Albumin [Mass/volume] in Serum or Plasma by Bromocresol purple (BCP) dye binding method 3.8 g/dL 3.2-4.8 N [facility] ital Protein [Mass/volume] in Serum or Plasma 7.9 g/dL 5.7-8.2 N [facility] ID Date Data Source [id number] 02/15/2021 04:38:00 PM EDT [facility] @02/15/21 1624: MANUAL DIFF added. RFLXG = DIFF. @02/15/21 1624: MANUAL DIFF added. RFLXG = DIFF. Name Value Range Interpretation Code Description Data Argelia rce(s) Supporting Document(s) Cells counted [#] 100 [facility] Neutrophils [#/volume] in Blood by Manual count 75 % 41-77 N [facility] Lymphocytes [#/volume] in Blood by Manual count 19 % 14-46 N [facility] Monocytes [#/volume] in Blood by Manual count 6 % 4-12 [facility] Platelets [#/volume] in Blood by Estimate APPEARS NORMAL NORMAL [facility] Morphology [Interpretation] in Blood Narrative APPEARS NORMAL NORMAL [facility] ID Date Data Source [id number] 02/15/2021 04:40:00 PM EDT [facility] @02/15/21 1624: MANUAL DIFF added. RFLXG = DIFF. @02/15/21 1624: MANUAL DIFF added. RFLXG = DIFF. Name Value Range Interpretation Code Description Data Argelia rce(s) Supporting Document(s) Amylase [Enzymatic activity/volume] in Serum or Plasma 52 U/L 30- 118 N [facility] ID Date Data Source [id number] 02/15/2021 04:40:00 PM EDT [facility] @02/15/21 1624: MANUAL DIFF added. RFLXG = DIFF. @02/15/21 1624: MANUAL DIFF added. RFLXG = DIFF. Name Value Range Interpretation Code Description Data Argelia rce(s) Supporting Document(s) Lipase [Enzymatic activity/volume] in Serum or Plasma 167 U/L 73-3 93 N [facility] ID Date Data Source [id number] 12/12/2020 10:40:00 AM EDT [facility] Patient Name: CHRISTI NEWBERRY OB: 1975 Sex: M Pt Unit #: [id number] Location:[facility] Provider: Visit Date/Time: 12/12/20 Primary Insurance: [employer] [place] Secondary Insurance: Self Pay Intake Vital Signs [...] pain follow-up * Associated symptoms: Denies fever(s) [facility] Medical History Diverticulitis Kidney calculi Tonsil and [...] habitus Orientation: alert, awake and oriented x3 HENID Head: normal to inspection, normocephalic and atraumatic [...] of unspecified knee, initial encounter SNOMED Code(s): 321109775 Category: Medical Qualifiers: Encounter type: subsequent encounter [...] were answered. Coding Level of Care Code 14213 Est Pt Intermediate Comp Exam Expanded Problem Focused Diagnoses Knee pain M25.569 Tear of MCL (medial collateral ligament) of knee S83.412D Encounter type: subsequent encounter Laterality: left <Electronically signed by Kevin Magallanes MD> 12/14/20 1407 Name Value Range Interpretation Code Description Data Argelia rce(s) Supporting Document(s) ID Date Data Source [id number] 12/07/2020 06:33:00 PM EDT [facility] [address] [place] [address] [phone] NAME SEX PT STATUS ACCOUNT NUMBER CHRISTI NEWBERRY PRE REF [id number] ORDERING PHYSICIAN LOCATION MEDICAL RECORD NO. Kevin Magallanes MD MRI [id number] ATTENDING PHYSICIAN DATE OF DATE OF EXAM/TIME [...] rce(s) Supporting Document(s) ID Date Data Source [id number] 12/06/2020 09:20:00 AM EDT [facility] Patient Name: CHRISTI NEWBERRY OB: 1975 Sex: M Pt Unit #: [id number] Location:[facility] Provider: Visit Date/Time: 12/06/20 Primary Insurance: [facility] Secondary Insurance: Self Pay Intake Vital Signs [...] his Left knee injury. He presented to [facility]'s ER on 10/28/20 after falling off his roof while attempting to shovel snow that same day. He was placed into a knee immobilizer and given crutches. He was seen by [facility] on 11/19/20 and an MRI was ordered. No MRI has been done to date. [facility] in [place]., . He is currently out of work at this time. [facility] Medical History (Updated 12/06/20 @ 10:02 by [...] habitus Orientation: alert, awake and oriented x3 HENID Head: normal to inspection, normocephalic and atraumatic [...] injury, left knee, initial encounter SNOMED Code(s): 882280192 Category: Medical Qualifiers: Encounter type: initial encounter [...] were answered. Coding Level of Care Code 40122 New Pt Intermediate Comp Exam Expanded Problem Focused Diagnoses Acute medial meniscus tear of left knee S83.242A Encounter type: initial encounter <Electronically signed by Kevin Magallanes MD> 12/06/20 1003 Name Value Range Interpretation Code Description Data Argelia rce(s) Supporting Document(s) ID Date Data Source [id number] 10/28/2020 10:58:00 PM EDT [facility] [address] [place] [address] [phone] NAME SEX PT STATUS ACCOUNT NUMBER CHRISTI NEWBERRY [facility] ER [id number] ORDERING PHYSICIAN LOCATION MEDICAL RECORD NO. Shad Walsh MD ER [id number] ATTENDING PHYSICIAN DATE OF DATE OF EXAM/TIME [...] Trans Dt/Tm: Trans by: DT Prt Dt/Tm: [id number]: Total DLP = 0.00 mGy-cm Fluoroscopy Time (in secs): Name Value Range Interpretation Code Description Data Argelia rce(s) Supporting Document(s) ID Date Data Source [id number] 10/28/2020 10:13:00 PM EDT [facility] ED Physician Documentation NAME: CHRISTI NEWBERRY : 1975 AGE: 45 MR#: [id number] SERVICE DATE: 10/28/[address]: Shad Walsh [...] vertigo, lightheadedness, loss of consciousness and paresthesias [facility] Medical History Tonsil and adenoid disease, chronic [...] pallor, cya nosis, icterus, or diaphoresis. Alert. Olivia x3.) Head Head exam: Present atraumatic and [...] meniscus. 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 Off work. Rest. Knee immobilizer. Crutches. Ibuprofen. [...] Take ibuprofen 600 mg (3, 200 mg [id number] tablets) with food every 8 hours as [...] Report Cosigners: D: [facility] 10/28/202212 [facility] CC: Elle Jeronimo Name Value Range Interpretation Code Description Data Argelia rce(s) Supporting Document(s) Procedure Social History Code Duration Value Status Description Data Source(s ) 02/17/2021 10:37:31 AM EDT Current every day smoker co mpleted Current every day smoker [facility] Smoking 02/17/2021 10:37:00 AM EDT Current every day smoker co mpleted Current every day smoker [facility] 02/15/2021 08:31:52 PM EDT Yes completed Yes [facility] 02/15/2021 05:53:50 PM EDT No completed No [facility] 02/15/2021 05:53:50 PM EDT No completed No [facility] 02/15/2021 05:53:50 PM EDT Yes completed Yes [facility] 02/15/2021 05:53:50 PM EDT Former smoker completed Former smoker [facility] Smoking 02/15/2021 05:53:00 PM EDT Former smoker completed Former smoker [facility] 12/06/2020 09:28:55 AM EDT Current every day smoker co mpleted Current every day smoker [facility] 12/06/2020 09:28:55 AM EDT Current every day smoker co mpleted Current every day smoker [facility] Smoking 12/06/2020 09:28:00 AM EDT Current every day smoker co mpleted Current every day smoker [facility] 10/28/2020 10:16:03 PM EDT No completed No [facility] 10/28/2020 10:16:03 PM EDT Yes completed Yes [facility] 10/28/2020 10:16:03 PM EDT No completed No [facility] 10/28/2020 10:16:03 PM EDT Yes completed Yes [facility] 10/28/2020 10:16:03 PM EDT No completed No [facility] 10/28/2020 10:16:03 PM EDT Yes completed Yes [facility] 10/28/2020 10:16:03 PM EDT Current every day smoker co mpleted Current every day smoker [facility] Smoking 10/28/2020 10:16:00 PM EDT Current every day smoker co mpleted Current every day smoker [facility] Vital Signs ID Date Data Source UNK Name Value Range Interpretation Code Description Data Source(s) Body temperature 97.8 [degF] 97.8 [degF] [facility] ([facility] ) Body height 71 [in_i] 71 [in_i] [facility] ([facility] ) 5'11" Body weight 223.00 [lb_av] 223.00 [lb_av] MEDEN T ([facility]) Body mass index (BMI) [Ratio] 31.1 kg/m2 31.1 k g/m2 [facility] ([facility] )
[2021-07-16 05:02] LABS: AMPHETAMINES LEVEL URINE POSITIVE (NEGATIVE); BARBITURATES URINE NEGATIVE (NEGATIVE); BENZODIAZEPINES URINE NEGATIVE (NEGATIVE); CANNABINOIDS URINE POSITIVE (NEGATIVE); COCAINE METABOLITE URINE NEGATIVE (NEGATIVE); METHADONE URINE NEGATIVE (NEGATIVE); OPIATES URINE NEGATIVE (NEGATIVE); PHENCYCLIDINE URINE NEGATIVE (NEGATIVE)
[2021-07-16] MEDS ORDERED: MULTIVITAMINS/MINERALS THERAP 1 TAB PO SCH (09:00)
[2021-07-16] MEDS ORDERED: FOLIC ACID 1 MG TAB PO SCH (09:00)
[2021-07-16] MEDS ORDERED: THIAMINE 100 MG TAB PO SCH (09:00)
[2021-07-16] MEDS ORDERED: HOME MED LIST COMPLETE! XX SCH (09:35)
[2021-07-16] MEDS ORDERED: LORazepam 2 MG TAB PO PRN (10:05)
[2021-07-16] MEDS ORDERED: OXAZEPAM 15 MG CAP PO ONE (10:05)
[2021-07-16] MEDS ORDERED: MAALOX 30 ML SUSP *UDC PO PRN (16:25)
[2021-07-16] MEDS ORDERED: IBUPROFEN 400MG TAB PO PRN (16:25)
[2021-07-16] MEDS ORDERED: MOM 30ML SUSPENSION UDC PO PRN (16:25)
[2021-07-16] MEDS: THIAMINE 100 MG TAB PO SCH (20:25)
[2021-07-16 23:44] VITALS: BP 150/100
[2021-07-17] MEDS: LORazepam 2 MG TAB PO PRN
[2021-07-17] MEDS: traZODone 50 MG TAB PO PRN ×2 (00:02→20:23)
[2021-07-17 02:12] VITALS: BP 150/100
[2021-07-17 04:32] VITALS: BP 132/90
[2021-07-17 06:29] VITALS: BP 144/98
[2021-07-17] MEDS: MULTIVITAMINS/MINERALS THERAP 1 TAB PO SCH (09:27)
[2021-07-17] MEDS: FOLIC ACID 1 MG TAB PO SCH (09:27)
[2021-07-17] MEDS: THIAMINE 100 MG TAB PO SCH ×2 (09:27→20:23)
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
[2021-07-17 17:45] VITALS: BP 168/99
--- NOTE | 2021-07-17 21:21 | HPEPDOC ---
[facility] Medical History & Physical Date of Admission Jul 16, 2021 Date of Service: Jul 17, 2021 History and Physical CHIEF COMPLAINT: Medical health screening HISTORY OF PRESENT ILLNESS: Mr. Saldivar is a 46 year old male who is in the inpatient mental health unit for suicidal ideation. Hospitalist team was co nsulted for medical health screening. I saw patient in his room. He tells me that he is depressed and sad. Denies any fever/chills, chest pain, dyspnea, abdominal pain, diarrhea, or dysuria. He had a fall about a week ago on ice and had a bruise on his arm, but otherwise, no muscle aches or pains. He has a chronic cough due to smoking. PAST MEDICAL HISTORY: 1. Anxiety 2. Depression 3. Asthma 4. Hypertension 5. Alcoholic hepatitis 6. Chronic low back pain 7. Nicotine dependence 8. Diverticulitis PAST SURGICAL HISTORY: 1. Tonsillectomy 2. Appendectomy 3. Abscess drained from right finger SOCIAL HISTORY: Tobacco use: Current smoker ETOH: Heavy drinker Illicit drug use: Marijuana FAMILY HISTORY: Father: Diabetes and hypertension Mother: Diabetes and hypertension ALLERGIES: Please see below. REVIEW OF SYSTEMS: CONSTITUTIONAL: Denies any fever or chills HEENT: Denies any sore throat CARDIOVASCULAR: Denies chest pain RESPIRATORY: Denies dyspnea. Has chronic productive cough GASTROINTESTINAL: Denies abdominal pain or diarrhea GENITOURINARY: Denies dysuria SKIN: Denies rashes MUSCULOSKELETAL: Denies muscle pain NEUROLOGICAL: Reports intermittent numbness in feet PSYCHIATRIC: Reports anxiety and depression HOME MEDICATIONS: Please see below. PHYSICAL EXAMINATION: VITAL SIGNS: Temperature 98.8, pulse 86, respiratory rate 16, blood pressure 168/99, pulse oximetry 98% on room air. GENERAL: Comfortable, in no apparent distress. HEENT: Head normocephalic/atraumatic, EOMI, sclera clear. NECK: Supple. RESPIRATORY: Lungs clear to auscultation bilaterally, no rales, wheeze or rhonchi. CARDIOVASCULAR: Regular rate and rhythm. ABDOMEN: Soft, nontender, no guarding or rebound tenderness. Normal bowel sounds. MUSCLE SKELETAL: Muscle strength 5/5 in all extremities. NEUROLOGICAL: CN 312 grossly intact, no focal deficits noted. PSYCHOLOGICAL: Depressed. LABORATORY DATA: See below. IMAGING: None MICROBIOLOGY: Please see below. ASSESSMENT and PLAN: 1. Suicidal ideation -Being managed in the inpatient mental health unit 2. Hypertension -Patient was previously on amlodipine, but not currently -Due to elevated blood pressure, will start amlodipine with holding parameters Thank you for consulting us. We will sign off at this time. If there are any further questions or concerns, please do not hesitate to contact us. Vital Signs Vital Signs Date Time Temp Pulse Resp B/P (MAP) Pulse Ox O2 Delivery O2 Flow Rate FiO2 07/17/21 17:45 98.8 86 16 168/99 (122) 98 07/17/21 06:29 Room Air Home Medications No Active Prescriptions or Reported Meds Allergies Coded Allergies: No Known Allergies (Unverified , 06/03/19) A-FIB/CHADSVASC A-FIB History Current/History of A-Fib/PAF?: No Age/Risk Factor Scoring CHADSVASC: CHADSVASC Response (Comments) Value Age Risk Factor Age < 65 years old 0 Gender Risk Factor Male 0 Hx of CHF No 0 Hx of HTN No 0 Hx of Stroke/TIA/or VTE No 0 Hx of Diabetes No 0 Hx of Vascular Disease No 0 Total 0 NEREIDA AGOSTO DO Jul 17, 2021 21:21
[2021-07-18 06:30] VITALS: BP 139/79
[2021-07-18] MEDS: NICOTINE POLACRILEX 2 MG GUM PO PRN (08:44)
[2021-07-18] MEDS: FOLIC ACID 1 MG TAB PO SCH (08:44)
[2021-07-18] MEDS: THIAMINE 100 MG TAB PO SCH ×2 (08:44→20:40)
[2021-07-18] MEDS: MULTIVITAMINS/MINERALS THERAP 1 TAB PO SCH (08:44)
[2021-07-18 10:13] LABS: HEMOGLOBIN A1c 5.5 %
[2021-07-18 10:27] LABS: CHOLESTEROL RISK RATIO 4.567 (<5)
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
[2021-07-18] MEDS: OMEGA-3 1000MG CAPSULE PO SCH ×2 (13:20→20:40)
[2021-07-18 18:31] VITALS: BP 124/78
[2021-07-18] MEDS: traZODone 50 MG TAB PO PRN (20:40)
[2021-07-19 07:32] VITALS: BP 155/97
[2021-07-19] MEDS: MULTIVITAMINS/MINERALS THERAP 1 TAB PO SCH (09:19)
[2021-07-19] MEDS: THIAMINE 100 MG TAB PO SCH (09:19)
[2021-07-19] MEDS: FOLIC ACID 1 MG TAB PO SCH (09:19)
[2021-07-19] MEDS: OMEGA-3 1000MG CAPSULE PO SCH ×2 (09:19→19:59)
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
[2021-07-19 12:38] LABS: ALBUMIN 3.6 GM/DL (3.2-5.2); ALT/SGPT 145 U/L (12-78); BILIRUBIN,TOTAL 1.5 MG/DL (0.2-1.0); BLOOD UREA NITROGEN 13 MG/DL (7-18); CALCIUM LEVEL 9.6 MG/DL (8.5-10.1); CARBON DIOXIDE LEVEL 27 MEQ/L (21-32); CHLORIDE LEVEL 106 MEQ/L (98-107); CREATININE FOR GFR 0.83 MG/DL (0.70-1.30); GLOMERULAR FILTRATION RATE > 60.0 (>60); GLUCOSE, FASTING 137 MG/DL (70-100); POTASSIUM SERUM 3.9 MEQ/L (3.5-5.1); SODIUM LEVEL 139 MEQ/L (136-145); TOTAL PROTEIN 7.1 GM/DL (6.4-8.2)
[2021-07-19 16:12] VITALS: BP 155/97
[2021-07-19] MEDS: LORazepam 2 MG TAB PO PRN (17:06)
[2021-07-19] MEDS: NICOTINE POLACRILEX 2 MG GUM PO PRN (17:47)
[2021-07-19 18:57] VITALS: BP 134/84
[2021-07-19] MEDS: ARIPiprazole 10 MG TAB PO SCH (19:58)
[2021-07-19] MEDS: traZODone 50 MG TAB PO PRN (19:59)
[2021-07-19] MEDS: PRAZOSIN 1 MG CAP PO SCH (19:59)
[2021-07-19 21:19] VITALS: BP 128/81
[2021-07-20 06:21] VITALS: BP 129/74
[2021-07-20] MEDS: MULTIVITAMINS/MINERALS THERAP 1 TAB PO SCH (08:20)
[2021-07-20] MEDS: FOLIC ACID 1 MG TAB PO SCH (08:20)
[2021-07-20] MEDS: OMEGA-3 1000MG CAPSULE PO SCH ×2 (08:20→19:35)
[2021-07-20] MEDS: LORazepam 2 MG TAB PO PRN ×3 (09:40→23:36)
[2021-07-20 09:41] VITALS: BP 132/96
[2021-07-20] MEDS: OXAZEPAM 10 MG CAP PO SCH ×3 (11:47→19:35)
--- NOTE | 2021-07-20 14:46 | MHIPN ---
[facility] PROGRESS NOTE DATE: 07/20/2021 The patient is seen via telepsychiatry due to the current coronavirus crisis. The patient states that he is doing "okay." He says he slept good. He says his depression is much better. He is not suicidal, but he tells me that he has been experiencing what he refers to as "hallucinations." He says like he might see some drops of what he thinks is like water on the floor or wall. MENTAL STATUS EXAMINATION: He is alert and oriented times three, pleasant and cooperative, verbally spontaneous. Eye contact is good. There is no formal thought disorder. His mood is okay. Affect constricted but appropriate. He is not suicidal or homicidal. He says that he has had episodes where he is seeing drops of water on wiley, and it is possibly due to delirium tremens. We will be monitoring this. Concentration and memory intact. Insight and judgment are fair. DIAGNOSES: 1. Unspecified bipolar disorder, current depressed. 2. Generalized anxiety disorder. 3. Alcohol use disorder. 4. Severe cannabis use disorder. 5. Rule out delirium tremens secondary to alcohol withdrawal. TREATMENT PLAN: At this point we will continue to monitor the patient for continued elevation and stabilization of his mood and resolution of suicidal ideation. He is on the Clinical Phillips Withdrawal Assessment (CIWA) protocol, and he has been as a result of that getting Ativan 2 mg intramuscularly (IM), which he received another dose this morning, but I am going to start him on Serax 30 mg twice a day in addition. We will monitor him closely, as it is possible he is beginning to have some delirium tremens symptoms.
[2021-07-20] MEDS: OLANZapine ORAL DISINTEGRATING TAB 5MG PO PRN ×2 (15:35→19:47)
[2021-07-20 17:57] VITALS: BP 123/81
[2021-07-20 19:29] VITALS: BP 127/97
[2021-07-20] MEDS: ARIPiprazole 10 MG TAB PO SCH (19:34)
[2021-07-20] MEDS: PRAZOSIN 1 MG CAP PO SCH (19:34)
[2021-07-20 21:34] VITALS: BP 122/82
[2021-07-20] MEDS: traZODone 50 MG TAB PO PRN (22:34)
[2021-07-20 23:36] VITALS: BP 131/93
[2021-07-21 01:23] VITALS: BP 131/90
[2021-07-21] MEDS: OLANZapine ORAL DISINTEGRATING TAB 5MG PO PRN ×2 (01:24→07:46)
[2021-07-21 01:58] VITALS: BP 151/109
[2021-07-21] MEDS ORDERED: LORazepam 2 MG TAB PO ONE (02:20)
[2021-07-21 04:08] VITALS: BP 142/94
[2021-07-21 07:36] VITALS: BP 137/82
[2021-07-21] MEDS: OMEGA-3 1000MG CAPSULE PO SCH ×2 (07:46→22:15)
[2021-07-21] MEDS: FOLIC ACID 1 MG TAB PO SCH (07:46)
[2021-07-21] MEDS: MULTIVITAMINS/MINERALS THERAP 1 TAB PO SCH (07:46)
[2021-07-21] MEDS ORDERED: LORazepam 2 MG TAB PO STA (08:00)
[2021-07-21] MEDS ORDERED: OXAZEPAM 15 MG CAP PO SCH (09:00)
[2021-07-21] MEDS: OXAZEPAM 15 MG CAP PO SCH ×3 (09:00→21:00)
[2021-07-21 20:55] VITALS: BP 151/95
[2021-07-21] MEDS: ARIPiprazole 10 MG TAB PO SCH (22:15)
[2021-07-21] MEDS: PRAZOSIN 1 MG CAP PO SCH (22:15)
[2021-07-22 06:43] VITALS: BP 136/78
[2021-07-22 06:44] VITALS: BP 136/78
[2021-07-22] MEDS: OXAZEPAM 15 MG CAP PO SCH ×3 (08:49→20:29)
[2021-07-22] MEDS: FOLIC ACID 1 MG TAB PO SCH (08:49)
[2021-07-22] MEDS: MULTIVITAMINS/MINERALS THERAP 1 TAB PO SCH (08:49)
[2021-07-22] MEDS: OMEGA-3 1000MG CAPSULE PO SCH ×2 (08:49→20:28)
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
--- NOTE | 2021-07-22 10:39 | IPNPDOC ---
Subjective Date Seen The patient was seen on 07/22/21. Subjective Chief Complaint/HPI Mr. Saldivar is a 46 year old male who is in the inpatient mental health unit for suicidal ideation. I was asked to see the patient for withdrawal. Yesterday, I had tried to see the patient, but he was sleeping. He had received a total of 10mg of Ativan and Serax 30mg TID. I decreased the Serax to 15mg TID with holding parameters. I saw patient today. He was resting comfortably. I woke him up. He was feeling better. Yesterday, he though the floor a flooded, but realizes that it was a hallucination. Denies hearing auditory hallucinations and has not seen any visual hallucination since yesterday afternoon. He feels well and said he slept well. Denied any chest pain, dyspnea, or abdominal pain. Otherwise, will order a CMP to look at his liver enzymes. Objective Physical Examination General Exam: Positive: Alert, Cooperative Eye Exam: Negative: Sclera icteric ENT Exam: Positive: Atraumatic Neck Exam: Positive: Supple Chest Exam: Positive: Clear to auscultation; Negative: Rales, Rhonchi, Wheezing Heart Exam: Positive: Regular Rhythm Abdomen Exam: Positive: Normal bowel sounds, Soft; Negative: Tenderness Neuro Exam: Positive: Normal Speech Psych Exam: Positive: Mood NL Assessment /Plan Plan/VTE VTE Prophylaxis Ordered?: Yes (ambulation) Plan 1. Suicidal ideation -Being managed in the inpatient mental health unit 2. Alcohol withdrawal -Improving -Wean off Serax 3. Elevated liver enzymes -Repeat liver enzymes today -If elevated, will order liver us and hepatitis panel 4. Hypertension -Patient currently on Prazosin VS, I&O, 24H, Fishbone Vital Signs/I&O Vital Signs Date Time Temp Pulse Resp B/P (MAP) Pulse Ox O2 Delivery O2 Flow Rate FiO2 07/22/21 06:44 70 136/78 07/22/21 06:43 99.1 16 100 Room Air NEREIDA AGOSTO DO Jul 22, 2021 10:39
[2021-07-22 11:48] LABS: ALBUMIN 3.2 GM/DL (3.2-5.2); ALT/SGPT 208 U/L (12-78); BILIRUBIN,TOTAL 0.9 MG/DL (0.2-1.0); BLOOD UREA NITROGEN 15 MG/DL (7-18); CARBON DIOXIDE LEVEL 26 MEQ/L (21-32); CHLORIDE LEVEL 108 MEQ/L (98-107); CREATININE FOR GFR 0.86 MG/DL (0.70-1.30); GLOMERULAR FILTRATION RATE > 60.0 (>60); GLUCOSE, FASTING 140 MG/DL (70-100); POTASSIUM SERUM 4.1 MEQ/L (3.5-5.1); SODIUM LEVEL 140 MEQ/L (136-145); TOTAL PROTEIN 6.5 GM/DL (6.4-8.2)
[2021-07-22 16:18] VITALS: BP 116/64
[2021-07-22] MEDS: ARIPiprazole 10 MG TAB PO SCH (20:28)
[2021-07-22] MEDS: PRAZOSIN 1 MG CAP PO SCH (20:29)
[2021-07-23 06:53] VITALS: BP 122/70
[2021-07-23] MEDS: OMEGA-3 1000MG CAPSULE PO SCH ×2 (08:21→20:06)
[2021-07-23] MEDS: FOLIC ACID 1 MG TAB PO SCH (08:22)
[2021-07-23] MEDS: OXAZEPAM 15 MG CAP PO SCH ×2 (08:22→20:06)
[2021-07-23] MEDS: MULTIVITAMINS/MINERALS THERAP 1 TAB PO SCH (08:22)
[2021-07-23 10:55] LABS: ALBUMIN 3.5 GM/DL (3.2-5.2); ALT/SGPT 186 U/L (12-78); BILIRUBIN,TOTAL 0.8 MG/DL (0.2-1.0); BLOOD UREA NITROGEN 15 MG/DL (7-18); CALCIUM LEVEL 8.8 MG/DL (8.5-10.1); CARBON DIOXIDE LEVEL 31 MEQ/L (21-32); CHLORIDE LEVEL 107 MEQ/L (98-107); CREATININE FOR GFR 0.96 MG/DL (0.70-1.30); GLOMERULAR FILTRATION RATE > 60.0 (>60); GLUCOSE, FASTING 162 MG/DL (70-100); SODIUM LEVEL 141 MEQ/L (136-145)
[2021-07-23 11:00] LABS: HEPATITIS B SURFACE ANTIGEN NEGATIVE (NEGATIVE)
[2021-07-23 11:28] LABS: HEPATITIS B CORE ANTIBODY IGM NEGATIVE (NEGATIVE); HEPATITIS C VIRUS ABY INDEX 0.1 INDEX (<0.8)
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
--- NOTE | 2021-07-23 16:20 | REP ---
INDICATION: elevated liver enzymes COMPARISON: None. TECHNIQUE: Real time martin scale ultrasound examination using curved array transducer. FINDINGS: Liver is hyperechoic with decreased through transmission suggesting fatty infiltration. No obvious focal hepatic lesion identified. Pancreas is incompletely evaluated due to interposed bowel gas. The gallbladder is normal and without gallstones, wall thickening, or pericholecystic fluid. No biliary ductal dilatation is appreciated and the common bile duct measures 4.0 mm diameter. Right kidney is normal in reniform shape without hydronephrosis and measures 12.1 x 5.4 x 5.2 cm. No ascites in the visualized right upper quadrant. IMPRESSION: Hepatosteatosis. <Electronically signed by Juan Easley > 07/23/21 2729
[2021-07-23 16:28] VITALS: BP 126/75
[2021-07-23 20:06] VITALS: BP 152/89
[2021-07-23] MEDS: PRAZOSIN 1 MG CAP PO SCH (20:06)
[2021-07-23] MEDS: ARIPiprazole 10 MG TAB PO SCH (20:06)
[2021-07-23] MEDS: traZODone 50 MG TAB PO PRN (20:07)
[2021-07-24 07:03] VITALS: BP 132/77
[2021-07-24] MEDS ORDERED: OXAZ15CA4 PO (08:34)
[2021-07-24] MEDS ORDERED: ABIL10TA9 PO (08:34)
[2021-07-24] MEDS ORDERED: NICO2GUM PO (08:34)
[2021-07-24] MEDS ORDERED: TRAZ-252 PO (08:34)
[2021-07-24] MEDS ORDERED: MINI1CAP PO (08:34)
[2021-07-24] MEDS: OMEGA-3 1000MG CAPSULE PO SCH (08:50)
[2021-07-24] MEDS: MULTIVITAMINS/MINERALS THERAP 1 TAB PO SCH (08:50)
[2021-07-24] MEDS: OXAZEPAM 15 MG CAP PO SCH (08:50)
[2021-07-24] MEDS: FOLIC ACID 1 MG TAB PO SCH (08:50)
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
== END 2021-07-24 13:56 | disposition home or self-care (01) | DRG 753 ==
LOC: M ED 21:23 → M ED INP 07-16 16:25 → M PSY 07-16 23:01
PROVIDERS: ADMIT Student in an Organized Health Care Education/Training Program; ATTEND Student in an Organized Health Care Education/Training Program
DX: F31.60 Bipolar disorder, current episode mixed, unspecified (principal); I10 Essential (primary) hypertension; R45.851 Suicidal ideations; F41.1 Generalized anxiety disorder; F10.20 Alcohol dependence, uncomplicated; F12.90 Cannabis use, unspecified, uncomplicated; F17.200 Nicotine dependence, unspecified, uncomplicated; M54.50 Low back pain, unspecified; R74.01 Elevation of levels of liver transaminase levels

== ENCOUNTER 2022-01-02 13:38 | Emergency (ER) | payer OTHER ==
[~2022-01-02] VITALS: Ht 182.9 cm; Wt 100.0 kg
[~2022-01-02 13:38] MED LIST changes: +ABIL10TA9 PO; +MINI1CAP PO; +NICO2GUM PO; +OXAZ15CA4 PO; +TRAZ-252 PO
[2022-01-02] MEDS ORDERED: PROA1AER2 (13:45)
[2022-01-02] MEDS ORDERED: SUCRALFATE 1 GM TAB PO ONE (17:35)
[2022-01-02] MEDS ORDERED: PANTOPRAZOLE 40MG VIAL IV ONE (17:35)
[2022-01-02] MEDS ORDERED: NS 1,000 ML IV ONE (17:35)
[2022-01-02 17:42] LABS: HEMATOCRIT 55.8 % (42.0-52.0); HEMOGLOBIN 19.7 g/dl (13.5-17.5); MEAN CORPUSCULAR HEMOGLOBIN 33.9 pg (27.0-33.0); MEAN CORPUSCULAR HGB CONC 35.3 g/dl (32.0-36.5); PLATELET COUNT, AUTOMATED 209 10^3/uL (150-450); RED BLOOD COUNT 5.81 10^6/uL (4.30-6.10); WHITE BLOOD COUNT 14.1 10^3/uL (4.0-10.0)
[2022-01-02 17:52] LABS: INR 1.11; PROTHROMBIN TIME 14.7 SECONDS (12.7-14.5)
[2022-01-02 19:00] LABS: ALT/SGPT 94 U/L (12-78); BILIRUBIN,DIRECT 0.3 MG/DL (0.0-0.2); BLOOD UREA NITROGEN 12 MG/DL (7-18); CALCIUM LEVEL 8.5 MG/DL (8.5-10.1); CARBON DIOXIDE LEVEL 28 MEQ/L (21-32); CHLORIDE LEVEL 105 MEQ/L (98-107); CREATININE FOR GFR 0.96 MG/DL (0.70-1.30); GLOMERULAR FILTRATION RATE > 60.0 (>60); GLUCOSE, FASTING 92 MG/DL (70-100); LIPASE 440 U/L (73-393); POTASSIUM SERUM 4.1 MEQ/L (3.5-5.1); SODIUM LEVEL 142 MEQ/L (136-145); TOTAL PROTEIN 8.2 GM/DL (6.4-8.2)
[2022-01-02] MEDS ORDERED: ISOVUE-370 76% 100ML VIAL As Ordered ONE (19:05)
[2022-01-02] MEDS ORDERED: SUCR1SS PO (20:09)
[2022-01-02] MEDS ORDERED: PROT1TAB2 PO (20:09)
[2022-01-02 20:24] VITALS: BP 137/69
[2022-01-02] MEDS ORDERED: SUCR1TA PO (20:37)
== END 2022-01-02 20:26 | disposition home or self-care (01) ==
LOC: M ED 13:38
DX: K85.90 Acute pancreatitis without necrosis or infection, unspecified (principal); I10 Essential (primary) hypertension; F33.9 Major depressive disorder, recurrent, unspecified; F41.9 Anxiety disorder, unspecified; F10.10 Alcohol abuse, uncomplicated; Z87.19 Personal history of other diseases of the digestive system; Z87.442 Personal history of urinary calculi; Z79.899 Other long term (current) drug therapy; F12.20 Cannabis dependence, uncomplicated; F17.210 Nicotine dependence, cigarettes, uncomplicated
CPT/HCPCS: 74177; 80048; 80076; 83690; 85027; 85610; 85730; 86850; 86900; 86901; 87428; 96361; 96374; 99284; C9113; Q9967

== ENCOUNTER 2022-09-12 15:42 | Inpatient (IN) | payer OTHER ==
[~2022-09-12] VITALS: Ht 180.3 cm; Wt 106.0 kg
[~2022-09-12 15:42] MED LIST changes: +PROA1AER2; +PROT1TAB2 PO; +SUCR1SS PO; +SUCR1TA PO
[2022-09-12] MEDS ORDERED: MULTIVITAMIN -ADULT INJECTION 10 ML, THIAMINE INJection 100 MG, FOLIC ACID 1 MG in NS 1... IV ONE (16:30)
[2022-09-12 17:10] LABS: HEMATOCRIT 56.9 % (42.0-52.0); HEMOGLOBIN 19.6 g/dl (13.5-17.5); MEAN CORPUSCULAR HEMOGLOBIN 34.6 pg (27.0-33.0); MEAN CORPUSCULAR HGB CONC 34.4 g/dl (32.0-36.5); MEAN CORPUSCULAR VOLUME 100.5 fl (80.0-96.0); PLATELET COUNT, AUTOMATED 150 10^3/uL (150-450); RED BLOOD COUNT 5.66 10^6/uL (4.30-6.10); WHITE BLOOD COUNT 13.1 10^3/uL (4.0-10.0)
[2022-09-12 17:31] LABS: ACETAMINOPHEN LEVEL < 2.0 UG/ML (10.0-20.0); SALICYLATE LEVEL < 3.0 MG/DL (<30)
[2022-09-12 17:32] LABS: ALBUMIN 4.6 G/DL (3.2-5.2); ALKALINE PHOSPHATASE 118 U/L (46-116); ALT/SGPT 65 U/L (7.0-40); AST/SGOT 77 U/L (<34); BILIRUBIN,DIRECT 0.5 MG/DL (<0.4); BILIRUBIN,TOTAL 1.1 MG/DL (0.3-1.2); BLOOD UREA NITROGEN 13 MG/DL (9-23); CALCIUM LEVEL 8.2 MG/DL (8.5-10.1); CARBON DIOXIDE LEVEL 14 MMOL/L (20-31); CHLORIDE LEVEL 96 MMOL/L (98-107); CREATININE FOR GFR 0.86 MG/DL (0.70-1.30); GLOMERULAR FILTRATION RATE > 60.0 (>60); GLUCOSE, FASTING 106 MG/DL (60-100); POTASSIUM SERUM 4.2 MMOL/L (3.5-5.1); SODIUM LEVEL 135 MMOL/L (136-145); TOTAL PROTEIN 8.3 G/DL (5.7-8.2)
[2022-09-12 17:34] LABS: RSV AMPLIFICATION NEGATIVE (NEGATIVE); THYROID STIMULATING HORMONE 0.941 uIU/ML (0.55-4.78)
[2022-09-12 17:44] LABS: ETHYL ALCOHOL (ETHANOL) 0.386 % (0.000-0.010)
[2022-09-12] MEDS ORDERED: HOME MED LIST COMPLETE! XX SCH (17:50)
[2022-09-12 20:35] LABS: ABG BASE EXCESS -8.5 (-2.0-2.0); ABG HCO3 16.5 MEQ/L (22.0-26.0); ABG PARTIAL PRESSURE CO2 33.9 mmHg (35.0-45.0); ABG PARTIAL PRESSURE O2 98.6 mmHg (75.0-100.0); ABG STANDARD HCO3 17.9 MEQ/L (22.0-26.0); ABG TOTAL CO2 17.5 MEQ/L (22.0-29.0); ABG pH (ARTERIAL) 7.305 UNITS (7.350-7.450)
[2022-09-12] MEDS ORDERED: NS 1,000 ML IV ONE (21:35)
[2022-09-12 22:07] LABS: ACETONE/KETONE > 4.50 MMOL/L (0.02-0.27)
[2022-09-12] MEDS ORDERED: ONDANSETRON 4MG 2ML VIAL IV ONE (23:40)
[2022-09-13] VITALS (7 sets, daily range): BP systolic 149–177; BP diastolic 86–95
[2022-09-13 00:06] LABS: ABG BASE EXCESS -8.5 (-2.0-2.0); ABG HCO3 16.7 MEQ/L (22.0-26.0); ABG O2 SATURATION 95.5 % (95.0-99.0); ABG PARTIAL PRESSURE CO2 34.7 mmHg (35.0-45.0); ABG PARTIAL PRESSURE O2 85.9 mmHg (75.0-100.0); ABG STANDARD HCO3 17.8 MEQ/L (22.0-26.0); ABG TOTAL CO2 17.8 MEQ/L (22.0-29.0); ABG pH (ARTERIAL) 7.301 UNITS (7.350-7.450)
[2022-09-13] MEDS ORDERED: OXAZEPAM 15MG CAP PO ONE (00:15)
[2022-09-13 00:28] LABS: BLOOD UREA NITROGEN 12 MG/DL (9-23); CARBON DIOXIDE LEVEL 17 MMOL/L (20-31); CHLORIDE LEVEL 103 MMOL/L (98-107); CREATININE FOR GFR 0.73 MG/DL (0.70-1.30); GLOMERULAR FILTRATION RATE > 60.0 (>60); GLUCOSE, FASTING 94 MG/DL (60-100); POTASSIUM SERUM 4.2 MMOL/L (3.5-5.1); SODIUM LEVEL 138 MMOL/L (136-145)
[2022-09-13] MEDS ORDERED: LORazepam 2 MG TAB PO PRN (01:05)
[2022-09-13] MEDS: THIAMINE 100 MG TAB PO SCH ×3 (03:06→21:54)
[2022-09-13] MEDS: NS 1,000 ML IV SCH ×4 (03:06→17:14)
[2022-09-13] MEDS: OXAZEPAM 15MG CAP PO SCH ×3 (06:13→21:54)
[2022-09-13 06:59] LABS: HEMATOCRIT 48.2 % (42.0-52.0); MEAN CORPUSCULAR HEMOGLOBIN 34.6 pg (27.0-33.0); MEAN CORPUSCULAR HGB CONC 34.6 g/dl (32.0-36.5); RED BLOOD COUNT 4.82 10^6/uL (4.30-6.10); WHITE BLOOD COUNT 9.8 10^3/uL (4.0-10.0)
[2022-09-13 07:18] LABS: HEMOGLOBIN 16.7 g/dl (13.5-17.5); PLATELET COUNT, AUTOMATED 89 10^3/uL (150-450)
[2022-09-13 07:26] LABS: ALBUMIN 3.5 G/DL (3.2-5.2); ALKALINE PHOSPHATASE 83 U/L (46-116); ALT/SGPT 47 U/L (7.0-40); AST/SGOT 57 U/L (<34); BILIRUBIN,TOTAL 1.7 MG/DL (0.3-1.2); BLOOD UREA NITROGEN 13 MG/DL (9-23); CALCIUM LEVEL 7.1 MG/DL (8.5-10.1); CARBON DIOXIDE LEVEL 20 MMOL/L (20-31); CHLORIDE LEVEL 102 MMOL/L (98-107); CREATININE FOR GFR 0.74 MG/DL (0.70-1.30); GLOMERULAR FILTRATION RATE > 60.0 (>60); GLUCOSE, FASTING 120 MG/DL (60-100); POTASSIUM SERUM 3.8 MMOL/L (3.5-5.1); SODIUM LEVEL 135 MMOL/L (136-145); TOTAL PROTEIN 6.6 G/DL (5.7-8.2)
[2022-09-13 07:58] LABS: VENOUS O2 SATURATION 98.8 % (60.0-80.0); VENOUS PARTIAL PRESSURE CO2 36.7 mmHg (38.0-50.0); VENOUS PARTIAL PRESSURE O2 156.6 mmHg (30.0-50.0); VENOUS PH 7.333 UNITS (7.330-7.430); VENOUS STANDARD HCO3 19.7 MEQ/L; VENOUS TOTAL CO2 20.2 MEQ/L (24.0-28.0)
[2022-09-13 09:13] LABS: TRIGLYCERIDES LEVEL 204 MG/DL (<150)
[2022-09-13 09:14] LABS: LIPASE 192 U/L (12-53)
[2022-09-13] MEDS ORDERED: ISOVUE-370 76% 100ML VIAL As Ordered ONE (09:14)
[2022-09-13 09:15] LABS: AMYLASE 130 U/L (30-118)
[2022-09-13 09:38] LABS: INR 1.14; PROTHROMBIN TIME 14.8 SECONDS (12.5-14.5)
[2022-09-13 09:39] LABS: PARTIAL THROMBOPLASTIN TIME 26.8 SECONDS (24.8-34.2)
[2022-09-13] MEDS: PANTOPRAZOLE 40MG VIAL IV SCH ×2 (10:58→21:54)
[2022-09-13] MEDS: MULTIVITAMINS/MINERALS THERAP 1 TAB PO SCH (10:59)
[2022-09-13] MEDS: MAG SULF 1GM/100ML (MAG RUN) 1 GM in IV 1 EA IV SCH ×2 (10:59→12:05)
[2022-09-13] MEDS: FOLIC ACID 1MG TAB PO SCH (11:00)
[2022-09-13] MEDS: ENOXAPARIN 40MG/0.4ML SYRINGE (J1650 PER 10MG) SC SCH (11:00)
[2022-09-13] MEDS: ACETAMINOPHEN TAB 650MG DOSE (2X325MG) PO PRN (11:06)
[2022-09-13] MEDS ORDERED: LORazepam 2 MG/ML 1ML VIAL IV PRN (12:15)
[2022-09-13 12:41] LABS: ERYTHROCYTE SEDIMENTATION RATE 5 mm/hr (0-15)
[2022-09-13 15:21] LABS: BASO % 0.1 % (0.0-1.0); EOS % 0.5 % (0.0-3.0); HEMATOCRIT 46.1 % (42.0-52.0); HEMOGLOBIN 16.2 g/dl (13.5-17.5); LYMPH # 1.4 10^3/uL (1.5-5.0); LYMPH % 15.9 % (24.0-44.0); MEAN CORPUSCULAR HEMOGLOBIN 34.8 pg (27.0-33.0); MEAN CORPUSCULAR HGB CONC 35.1 g/dl (32.0-36.5); MEAN CORPUSCULAR VOLUME 98.9 fl (80.0-96.0); MONO # 0.9 10^3/uL (0.0-0.8); MONO % 10.5 % (2.0-8.0); NEUTROPHILS # 6.4 10^3/uL (1.5-8.5); NEUTROPHILS % 72.8 % (36.0-66.0); RED BLOOD COUNT 4.66 10^6/uL (4.30-6.10); WHITE BLOOD COUNT 8.8 10^3/uL (4.0-10.0)
[2022-09-13 15:22] LABS: PLATELET COUNT, AUTOMATED 77 10^3/uL (150-450)
[2022-09-13 15:43] LABS: ALBUMIN 3.6 G/DL (3.2-5.2); ALKALINE PHOSPHATASE 82 U/L (46-116); ALT/SGPT 43 U/L (7.0-40); AST/SGOT 56 U/L (<34); BILIRUBIN,TOTAL 1.6 MG/DL (0.3-1.2); BLOOD UREA NITROGEN 14 MG/DL (9-23); CALCIUM LEVEL 7.9 MG/DL (8.5-10.1); CARBON DIOXIDE LEVEL 24 MMOL/L (20-31); CHLORIDE LEVEL 102 MMOL/L (98-107); CREATININE FOR GFR 0.73 MG/DL (0.70-1.30); GLOMERULAR FILTRATION RATE > 60.0 (>60); GLUCOSE, FASTING 131 MG/DL (60-100); MAGNESIUM LEVEL 2.3 MG/DL (1.8-2.4); POTASSIUM SERUM 3.9 MMOL/L (3.5-5.1); SODIUM LEVEL 136 MMOL/L (136-145); TOTAL PROTEIN 6.4 G/DL (5.7-8.2)
[2022-09-13] MEDS ORDERED: MORPHINE 2 MG/ML 1ML VIAL IV PRN (21:45)
[2022-09-13] MEDS ORDERED: LORazepam 2 MG/ML 1ML VIAL IV STA (22:00)
[2022-09-13] MEDS: NICOTINE 21MG/24HR 1 EA TRANSDERMAL TD PRN (22:03)
[2022-09-14] VITALS (20 sets, daily range): BP systolic 118–164; BP diastolic 78–101
[2022-09-14] MEDS: NS 1,000 ML IV SCH ×2 (00:24→08:23)
[2022-09-14] MEDS ORDERED: cloNIDine 0.1MG TABLET PO ONE (01:00)
[2022-09-14] MEDS: OXAZEPAM 15MG CAP PO SCH ×3 (06:16→21:09)
[2022-09-14] MEDS: ACETAMINOPHEN TAB 650MG DOSE (2X325MG) PO PRN ×2 (06:17→13:49)
[2022-09-14 06:42] LABS: BASO % 0.1 % (0.0-1.0); EOS # 0.1 10^3/uL (0.0-0.5); EOS % 1.5 % (0.0-3.0); HEMATOCRIT 43.6 % (42.0-52.0); HEMOGLOBIN 15.1 g/dl (13.5-17.5); LYMPH % 13.8 % (24.0-44.0); MEAN CORPUSCULAR HEMOGLOBIN 34.5 pg (27.0-33.0); MEAN CORPUSCULAR HGB CONC 34.6 g/dl (32.0-36.5); MEAN CORPUSCULAR VOLUME 99.5 fl (80.0-96.0); MONO # 0.6 10^3/uL (0.0-0.8); MONO % 8.3 % (2.0-8.0); NEUTROPHILS # 5.6 10^3/uL (1.5-8.5); NEUTROPHILS % 75.9 % (36.0-66.0); RED BLOOD COUNT 4.38 10^6/uL (4.30-6.10); WHITE BLOOD COUNT 7.4 10^3/uL (4.0-10.0)
[2022-09-14 06:43] LABS: PLATELET COUNT, AUTOMATED 60 10^3/uL (150-450)
[2022-09-14 06:45] LABS: AMPHETAMINES LEVEL URINE NEGATIVE (NEGATIVE); BARBITURATES URINE NEGATIVE (NEGATIVE); COCAINE METABOLITE URINE NEGATIVE (NEGATIVE); METHADONE URINE NEGATIVE (NEGATIVE); OPIATES URINE NEGATIVE (NEGATIVE); PHENCYCLIDINE URINE NEGATIVE (NEGATIVE)
[2022-09-14 06:48] LABS: BENZODIAZEPINES URINE POSITIVE (NEGATIVE); CANNABINOIDS URINE POSITIVE (NEGATIVE)
[2022-09-14 07:19] LABS: ALBUMIN 3.2 G/DL (3.2-5.2); ALKALINE PHOSPHATASE 72 U/L (46-116); ALT/SGPT 38 U/L (7.0-40); AST/SGOT 52 U/L (<34); BILIRUBIN,TOTAL 1.9 MG/DL (0.3-1.2); BLOOD UREA NITROGEN 14 MG/DL (9-23); CALCIUM LEVEL 8.1 MG/DL (8.5-10.1); CARBON DIOXIDE LEVEL 26 MMOL/L (20-31); CHLORIDE LEVEL 103 MMOL/L (98-107); CREATININE FOR GFR 0.65 MG/DL (0.70-1.30); GLOMERULAR FILTRATION RATE > 60.0 (>60); GLUCOSE, FASTING 114 MG/DL (60-100); MAGNESIUM LEVEL 1.9 MG/DL (1.8-2.4); POTASSIUM SERUM 3.6 MMOL/L (3.5-5.1); SODIUM LEVEL 137 MMOL/L (136-145); TOTAL PROTEIN 5.9 G/DL (5.7-8.2)
[2022-09-14] MEDS: THIAMINE 100 MG TAB PO SCH ×2 (08:22→21:09)
[2022-09-14] MEDS: PANTOPRAZOLE 40MG VIAL IV SCH ×2 (08:22→21:08)
[2022-09-14] MEDS: FOLIC ACID 1MG TAB PO SCH (08:22)
[2022-09-14] MEDS: ENOXAPARIN 40MG/0.4ML SYRINGE (J1650 PER 10MG) SC SCH (08:22)
[2022-09-14] MEDS: MULTIVITAMINS/MINERALS THERAP 1 TAB PO SCH (08:22)
[2022-09-14] MEDS ORDERED: INFLUENZA QUADRIVALENT PF VACCINE 0.5ML SYRINGE IM.IMMUN ONE (09:00)
[2022-09-14] MEDS: LORazepam 2 MG TAB PO PRN ×2 (09:33→16:19)
[2022-09-14] MEDS: LORazepam 2 MG/ML 1ML VIAL IV PRN (20:12)
[2022-09-15] VITALS (14 sets, daily range): BP systolic 114–159; BP diastolic 62–128
[2022-09-15] MEDS: LORazepam 2 MG/ML 1ML VIAL IV PRN ×2 (00:11→04:06)
[2022-09-15 04:33] LABS: BASO % 0.2 % (0.0-1.0); EOS # 0.2 10^3/uL (0.0-0.5); EOS % 2.9 % (0.0-3.0); HEMOGLOBIN 15.7 g/dl (13.5-17.5); LYMPH # 1.3 10^3/uL (1.5-5.0); LYMPH % 21.8 % (24.0-44.0); MEAN CORPUSCULAR HEMOGLOBIN 34.7 pg (27.0-33.0); MEAN CORPUSCULAR HGB CONC 34.9 g/dl (32.0-36.5); MEAN CORPUSCULAR VOLUME 99.6 fl (80.0-96.0); MONO # 0.5 10^3/uL (0.0-0.8); MONO % 7.8 % (2.0-8.0); NEUTROPHILS # 4.1 10^3/uL (1.5-8.5); RED BLOOD COUNT 4.52 10^6/uL (4.30-6.10); WHITE BLOOD COUNT 6.2 10^3/uL (4.0-10.0)
[2022-09-15 04:34] LABS: PLATELET COUNT, AUTOMATED 76 10^3/uL (150-450)
[2022-09-15 04:55] LABS: ALBUMIN 3.1 G/DL (3.2-5.2); ALKALINE PHOSPHATASE 72 U/L (46-116); ALT/SGPT 43 U/L (7.0-40); AST/SGOT 58 U/L (<34); BILIRUBIN,TOTAL 1.5 MG/DL (0.3-1.2); BLOOD UREA NITROGEN 10 MG/DL (9-23); CALCIUM LEVEL 8.4 MG/DL (8.5-10.1); CARBON DIOXIDE LEVEL 28 MMOL/L (20-31); CHLORIDE LEVEL 101 MMOL/L (98-107); CREATININE FOR GFR 0.56 MG/DL (0.70-1.30); GLOMERULAR FILTRATION RATE > 60.0 (>60); GLUCOSE, FASTING 106 MG/DL (60-100); MAGNESIUM LEVEL 1.9 MG/DL (1.8-2.4); POTASSIUM SERUM 3.3 MMOL/L (3.5-5.1); SODIUM LEVEL 137 MMOL/L (136-145); TOTAL PROTEIN 6.1 G/DL (5.7-8.2)
[2022-09-15] MEDS: OXAZEPAM 15MG CAP PO SCH ×3 (06:23→21:07)
[2022-09-15] MEDS ORDERED: POTASSIUM CHLORIDE 10MEQ SR TABLET PO ONE (07:05)
[2022-09-15] MEDS: MULTIVITAMINS/MINERALS THERAP 1 TAB PO SCH (09:38)
[2022-09-15] MEDS: ENOXAPARIN 40MG/0.4ML SYRINGE (J1650 PER 10MG) SC SCH (09:39)
[2022-09-15] MEDS: PANTOPRAZOLE 40MG VIAL IV SCH ×2 (09:40→21:07)
[2022-09-15] MEDS: FOLIC ACID 1MG TAB PO SCH (09:43)
[2022-09-15] MEDS: THIAMINE 100 MG TAB PO SCH (09:44)
[2022-09-16] VITALS (7 sets, daily range): BP systolic 138–160; BP diastolic 84–100
[2022-09-16 04:45] LABS: BASO % 0.3 % (0.0-1.0); EOS # 0.2 10^3/uL (0.0-0.5); EOS % 2.4 % (0.0-3.0); HEMATOCRIT 46.4 % (42.0-52.0); HEMOGLOBIN 16.1 g/dl (13.5-17.5); LYMPH # 1.9 10^3/uL (1.5-5.0); LYMPH % 25.9 % (24.0-44.0); MEAN CORPUSCULAR HEMOGLOBIN 34.5 pg (27.0-33.0); MEAN CORPUSCULAR HGB CONC 34.7 g/dl (32.0-36.5); MEAN CORPUSCULAR VOLUME 99.4 fl (80.0-96.0); MONO # 0.6 10^3/uL (0.0-0.8); MONO % 8.2 % (2.0-8.0); NEUTROPHILS # 4.7 10^3/uL (1.5-8.5); NEUTROPHILS % 62.7 % (36.0-66.0); PLATELET COUNT, AUTOMATED 119 10^3/uL (150-450); RED BLOOD COUNT 4.67 10^6/uL (4.30-6.10); WHITE BLOOD COUNT 7.5 10^3/uL (4.0-10.0)
[2022-09-16 05:12] LABS: ALBUMIN 3.2 G/DL (3.2-5.2); ALKALINE PHOSPHATASE 89 U/L (46-116); ALT/SGPT 67 U/L (7.0-40); AST/SGOT 87 U/L (<34); BLOOD UREA NITROGEN 15 MG/DL (9-23); CALCIUM LEVEL 9.1 MG/DL (8.5-10.1); CARBON DIOXIDE LEVEL 28 MMOL/L (20-31); CHLORIDE LEVEL 103 MMOL/L (98-107); CREATININE FOR GFR 0.65 MG/DL (0.70-1.30); GLOMERULAR FILTRATION RATE > 60.0 (>60); GLUCOSE, FASTING 128 MG/DL (60-100); MAGNESIUM LEVEL 1.7 MG/DL (1.8-2.4); POTASSIUM SERUM 3.5 MMOL/L (3.5-5.1); SODIUM LEVEL 138 MMOL/L (136-145); TOTAL PROTEIN 6.4 G/DL (5.7-8.2)
[2022-09-16] MEDS: OXAZEPAM 15MG CAP PO SCH (05:12)
[2022-09-16] MEDS ORDERED: MAG SULF 1GM/100ML (MAG RUN) 1 GM in IV 1 EA IV ONE (07:10)
[2022-09-16] MEDS: MULTIVITAMINS/MINERALS THERAP 1 TAB PO SCH (08:22)
[2022-09-16] MEDS: ENOXAPARIN 40MG/0.4ML SYRINGE (J1650 PER 10MG) SC SCH (08:22)
[2022-09-16] MEDS: PANTOPRAZOLE 40MG VIAL IV SCH ×2 (08:22→20:09)
[2022-09-16] MEDS: FOLIC ACID 1MG TAB PO SCH (08:22)
[2022-09-16] MEDS: THIAMINE 100 MG TAB PO SCH (08:22)
[2022-09-16 12:33] LABS: HEPATITIS B CORE ANTIBODY IGM NEGATIVE (NEGATIVE); HEPATITIS B SURFACE ANTIGEN NEGATIVE (NEGATIVE)
[2022-09-17] VITALS (7 sets, daily range): BP systolic 136–154; BP diastolic 86–100
[2022-09-17 06:20] LABS: BASO % 0.4 % (0.0-1.0); EOS # 0.2 10^3/uL (0.0-0.5); HEMOGLOBIN 16.6 g/dl (13.5-17.5); LYMPH # 2.6 10^3/uL (1.5-5.0); LYMPH % 25.2 % (24.0-44.0); MEAN CORPUSCULAR HEMOGLOBIN 34.4 pg (27.0-33.0); MEAN CORPUSCULAR HGB CONC 34.6 g/dl (32.0-36.5); MEAN CORPUSCULAR VOLUME 99.4 fl (80.0-96.0); MONO # 1.1 10^3/uL (0.0-0.8); MONO % 10.7 % (2.0-8.0); NEUTROPHILS # 6.2 10^3/uL (1.5-8.5); NEUTROPHILS % 61.3 % (36.0-66.0); PLATELET COUNT, AUTOMATED 145 10^3/uL (150-450); RED BLOOD COUNT 4.83 10^6/uL (4.30-6.10); WHITE BLOOD COUNT 10.1 10^3/uL (4.0-10.0)
[2022-09-17 06:42] LABS: ALBUMIN 3.6 G/DL (3.2-5.2); ALKALINE PHOSPHATASE 91 U/L (46-116); ALT/SGPT 128 U/L (7.0-40); AST/SGOT 118 U/L (<34); BLOOD UREA NITROGEN 17 MG/DL (9-23); CALCIUM LEVEL 9.1 MG/DL (8.5-10.1); CARBON DIOXIDE LEVEL 25 MMOL/L (20-31); CHLORIDE LEVEL 103 MMOL/L (98-107); CREATININE FOR GFR 0.71 MG/DL (0.70-1.30); GLOMERULAR FILTRATION RATE > 60.0 (>60); GLUCOSE, FASTING 108 MG/DL (60-100); MAGNESIUM LEVEL 1.6 MG/DL (1.8-2.4); POTASSIUM SERUM 3.4 MMOL/L (3.5-5.1); SODIUM LEVEL 138 MMOL/L (136-145); TOTAL PROTEIN 6.7 G/DL (5.7-8.2)
[2022-09-17] MEDS ORDERED: POTASSIUM CHLORIDE 10MEQ SR TABLET PO ONE (07:35)
[2022-09-17] MEDS ORDERED: PANTOPRAZOLE 40MG VIAL IV SCH (07:50)
[2022-09-17] MEDS: THIAMINE 100 MG TAB PO SCH (09:00)
[2022-09-17] MEDS: PANTOPRAZOLE 40MG TAB (PROTONIX) PO SCH ×2 (10:34→20:33)
[2022-09-17] MEDS: MULTIVITAMINS/MINERALS THERAP 1 TAB PO SCH (10:34)
[2022-09-17] MEDS: FOLIC ACID 1MG TAB PO SCH (10:34)
[2022-09-17] MEDS: MAG SULF 1GM/100ML (MAG RUN) 1 GM in IV 1 EA IV SCH ×2 (10:34→10:37)
[2022-09-17] MEDS: ENOXAPARIN 40MG/0.4ML SYRINGE (J1650 PER 10MG) SC SCH (10:35)
[2022-09-17] MEDS: NICOTINE 21MG/24HR 1 EA TRANSDERMAL TD PRN (10:46)
[2022-09-17 12:52] LABS: ALBUMIN 3.6 G/DL (3.2-5.2); BILIRUBIN,DIRECT 0.4 MG/DL (<0.4); BILIRUBIN,TOTAL 1.1 MG/DL (0.3-1.2); TOTAL PROTEIN 6.6 G/DL (5.7-8.2)
[2022-09-17] MEDS ORDERED: LORazepam 2 MG TAB PO PRN (17:15)
[2022-09-17] MEDS ORDERED: ONDANSETRON 4MG 2ML VIAL IV PRN (17:30)
[2022-09-17 18:23] LABS: HEPATITIS B SURFACE ANTIGEN NEGATIVE (NEGATIVE)
[2022-09-17 18:43] LABS: HEPATITIS B CORE ANTIBODY IGM NEGATIVE (NEGATIVE)
[2022-09-17] MEDS ORDERED: OXAZEPAM 10MG CAP PO ONE (20:30)
[2022-09-18] VITALS (7 sets, daily range): BP systolic 132–143; BP diastolic 89–91
[2022-09-18] MEDS: RAMELTEON 8 MG TAB (ROZEREM) PO PRN ×2 (00:09→20:51)
[2022-09-18 06:55] LABS: BASO # 0.1 10^3/uL (0.0-0.2); BASO % 0.5 % (0.0-1.0); EOS # 0.2 10^3/uL (0.0-0.5); EOS % 2.2 % (0.0-3.0); HEMATOCRIT 51.4 % (42.0-52.0); HEMOGLOBIN 17.6 g/dl (13.5-17.5); LYMPH # 2.2 10^3/uL (1.5-5.0); LYMPH % 24.2 % (24.0-44.0); MEAN CORPUSCULAR HEMOGLOBIN 34.4 pg (27.0-33.0); MEAN CORPUSCULAR HGB CONC 34.2 g/dl (32.0-36.5); MEAN CORPUSCULAR VOLUME 100.4 fl (80.0-96.0); MONO # 1.2 10^3/uL (0.0-0.8); MONO % 13.2 % (2.0-8.0); NEUTROPHILS # 5.5 10^3/uL (1.5-8.5); NEUTROPHILS % 59.1 % (36.0-66.0); PLATELET COUNT, AUTOMATED 178 10^3/uL (150-450); RED BLOOD COUNT 5.12 10^6/uL (4.30-6.10); WHITE BLOOD COUNT 9.3 10^3/uL (4.0-10.0)
[2022-09-18 07:04] LABS: ALBUMIN 3.6 G/DL (3.2-5.2); ALKALINE PHOSPHATASE 86 U/L (46-116); ALT/SGPT 191 U/L (7.0-40); AST/SGOT 164 U/L (<34); BILIRUBIN,TOTAL 0.9 MG/DL (0.3-1.2); BLOOD UREA NITROGEN 16 MG/DL (9-23); CALCIUM LEVEL 8.8 MG/DL (8.5-10.1); CARBON DIOXIDE LEVEL 28 MMOL/L (20-31); CHLORIDE LEVEL 103 MMOL/L (98-107); CREATININE FOR GFR 0.91 MG/DL (0.70-1.30); GLOMERULAR FILTRATION RATE > 60.0 (>60); GLUCOSE, FASTING 113 MG/DL (60-100); MAGNESIUM LEVEL 1.9 MG/DL (1.8-2.4); SODIUM LEVEL 140 MMOL/L (136-145); TOTAL PROTEIN 6.7 G/DL (5.7-8.2)
[2022-09-18 07:28] LABS: HIV 1&2 SCREEN CENTAUR NEGATIVE (NEGATIVE)
[2022-09-18] MEDS: MULTIVITAMINS/MINERALS THERAP 1 TAB PO SCH (09:13)
[2022-09-18] MEDS: THIAMINE 100 MG TAB PO SCH (09:13)
[2022-09-18] MEDS: ENOXAPARIN 40MG/0.4ML SYRINGE (J1650 PER 10MG) SC SCH (09:13)
[2022-09-18] MEDS: PANTOPRAZOLE 40MG TAB (PROTONIX) PO SCH ×2 (09:13→20:51)
[2022-09-18] MEDS: FOLIC ACID 1MG TAB PO SCH (09:14)
[2022-09-18 10:00] LABS: IRON (FE) 135 UG/DL (65-175); PERCENT SATURATION 46.7 % (19.7-50.0); TOTAL IRON BINDING CAPACITY 289 UG/DL (250-425)
[2022-09-18 10:18] LABS: ERYTHROCYTE SEDIMENTATION RATE 15 mm/hr (0-15)
[2022-09-18] MEDS ORDERED: DOCUSATE SODIUM 100MG CAPSULE PO ONE (10:25)
[2022-09-18] MEDS ORDERED: MIRALAX *UNIT DOSE* 17GM PACKET PO PRN (10:25)
[2022-09-18 10:46] LABS: FERRITIN 666.4 NG/ML (10.5-307.3)
[2022-09-18 10:47] LABS: VITAMIN B12 LEVEL 298 PG/ML (211-911)
[2022-09-18 10:49] LABS: FOLATE 11.68 NG/ML (>5.4)
[2022-09-18] MEDS: NICOTINE 21MG/24HR 1 EA TRANSDERMAL TD PRN (11:44)
[2022-09-18] MEDS: MIRALAX *UNIT DOSE* 17GM PACKET PO SCH ×2 (14:50→20:50)
[2022-09-19 05:23] VITALS: BP 140/90
[2022-09-19 06:19] LABS: BASO % 0.4 % (0.0-1.0); EOS # 0.2 10^3/uL (0.0-0.5); EOS % 1.9 % (0.0-3.0); HEMOGLOBIN 16.4 g/dl (13.5-17.5); LYMPH # 3.1 10^3/uL (1.5-5.0); LYMPH % 27.2 % (24.0-44.0); MEAN CORPUSCULAR HEMOGLOBIN 34.9 pg (27.0-33.0); MEAN CORPUSCULAR HGB CONC 34.9 g/dl (32.0-36.5); NEUTROPHILS # 6.3 10^3/uL (1.5-8.5); NEUTROPHILS % 55.9 % (36.0-66.0); PLATELET COUNT, AUTOMATED 209 10^3/uL (150-450); WHITE BLOOD COUNT 11.3 10^3/uL (4.0-10.0)
[2022-09-19 06:37] LABS: ALBUMIN 3.4 G/DL (3.2-5.2); ALKALINE PHOSPHATASE 86 U/L (46-116); ALT/SGPT 183 U/L (7.0-40); AST/SGOT 114 U/L (<34); BILIRUBIN,TOTAL 0.8 MG/DL (0.3-1.2); BLOOD UREA NITROGEN 18 MG/DL (9-23); CALCIUM LEVEL 8.9 MG/DL (8.5-10.1); CARBON DIOXIDE LEVEL 27 MMOL/L (20-31); CHLORIDE LEVEL 103 MMOL/L (98-107); CREATININE FOR GFR 0.83 MG/DL (0.70-1.30); GLOMERULAR FILTRATION RATE > 60.0 (>60); GLUCOSE, FASTING 101 MG/DL (60-100); MAGNESIUM LEVEL 1.8 MG/DL (1.8-2.4); MONO # 1.6 10^3/uL (0.0-0.8); POTASSIUM SERUM 3.7 MMOL/L (3.5-5.1); SODIUM LEVEL 138 MMOL/L (136-145); TOTAL PROTEIN 6.7 G/DL (5.7-8.2)
[2022-09-19] MEDS: MIRALAX *UNIT DOSE* 17GM PACKET PO SCH ×2 (09:00→19:56)
[2022-09-19] MEDS: MULTIVITAMINS/MINERALS THERAP 1 TAB PO SCH (09:51)
[2022-09-19] MEDS: THIAMINE 100 MG TAB PO SCH (09:51)
[2022-09-19] MEDS: PANTOPRAZOLE 40MG TAB (PROTONIX) PO SCH ×2 (09:51→19:55)
[2022-09-19] MEDS: ENOXAPARIN 40MG/0.4ML SYRINGE (J1650 PER 10MG) SC SCH (09:51)
[2022-09-19] MEDS: FOLIC ACID 1MG TAB PO SCH (09:53)
[2022-09-19] MEDS: NICOTINE 21MG/24HR 1 EA TRANSDERMAL TD PRN (09:58)
[2022-09-19 14:00] VITALS: BP 131/92
[2022-09-19] MEDS: RAMELTEON 8 MG TAB (ROZEREM) PO PRN (19:55)
[2022-09-19 20:00] VITALS: BP 126/88
[2022-09-19 23:07] LABS: CMV QUANT DNA PCR (PLASMA) Negative (Negative); CYTOMEGALOVIRUS IgM ANTIBODY <30.0 AU/mL (0.0-29.9); EBV VIRAL CAPSID AG IgM <36.0 U/mL (0.0-35.9)
[2022-09-20 06:00] VITALS: BP 128/87
[2022-09-20 06:07] LABS: HEMATOCRIT 47.3 % (42.0-52.0); HEMOGLOBIN 16.3 g/dl (13.5-17.5); MEAN CORPUSCULAR HEMOGLOBIN 34.8 pg (27.0-33.0); MEAN CORPUSCULAR HGB CONC 34.5 g/dl (32.0-36.5); MEAN CORPUSCULAR VOLUME 100.9 fl (80.0-96.0); PLATELET COUNT, AUTOMATED 260 10^3/uL (150-450); RED BLOOD COUNT 4.69 10^6/uL (4.30-6.10); WHITE BLOOD COUNT 11.1 10^3/uL (4.0-10.0)
[2022-09-20 06:39] LABS: ALBUMIN 3.4 G/DL (3.2-5.2); ALKALINE PHOSPHATASE 86 U/L (46-116); ALT/SGPT 184 U/L (7.0-40); AST/SGOT 106 U/L (<34); BILIRUBIN,TOTAL 0.8 MG/DL (0.3-1.2); BLOOD UREA NITROGEN 18 MG/DL (9-23); CALCIUM LEVEL 8.9 MG/DL (8.5-10.1); CARBON DIOXIDE LEVEL 28 MMOL/L (20-31); CHLORIDE LEVEL 103 MMOL/L (98-107); CREATININE FOR GFR 0.85 MG/DL (0.70-1.30); GLOMERULAR FILTRATION RATE > 60.0 (>60); GLUCOSE, FASTING 99 MG/DL (60-100); MAGNESIUM LEVEL 1.9 MG/DL (1.8-2.4); POTASSIUM SERUM 4.2 MMOL/L (3.5-5.1); SODIUM LEVEL 139 MMOL/L (136-145); TOTAL PROTEIN 6.7 G/DL (5.7-8.2)
[2022-09-20 06:50] LABS: ATYPICAL LYMPH 10 % (0-5); EOSINOPHILS 3 % (0-3); LYMPHOCYTES 23 % (16-44); MONOCYTES 15 % (0-5); NEUTROPHILS 48 % (28-66)
[2022-09-20 06:52] LABS: PLATELET ESTIMATE NORMAL (NORMAL)
[2022-09-20] MEDS: MIRALAX *UNIT DOSE* 17GM PACKET PO SCH ×2 (09:00→21:00)
[2022-09-20] MEDS: THIAMINE 100 MG TAB PO SCH (09:54)
[2022-09-20] MEDS: PANTOPRAZOLE 40MG TAB (PROTONIX) PO SCH ×2 (09:54→21:14)
[2022-09-20] MEDS: FOLIC ACID 1MG TAB PO SCH (09:54)
[2022-09-20] MEDS: MULTIVITAMINS/MINERALS THERAP 1 TAB PO SCH (09:54)
[2022-09-20] MEDS: ENOXAPARIN 40MG/0.4ML SYRINGE (J1650 PER 10MG) SC SCH (09:55)
[2022-09-20] MEDS: NICOTINE 21MG/24HR 1 EA TRANSDERMAL TD PRN (09:59)
[2022-09-20 18:59] VITALS: BP 156/92
[2022-09-20] MEDS ORDERED: hydrOXYzine 50 MG TAB PO ONE (21:00)
[2022-09-20 21:51] VITALS: BP 125/85
[2022-09-21 06:00] VITALS: BP 125/84
[2022-09-21] MEDS: MIRALAX *UNIT DOSE* 17GM PACKET PO SCH ×2 (08:36→20:46)
[2022-09-21] MEDS: NICOTINE 21MG/24HR 1 EA TRANSDERMAL TD PRN (08:54)
[2022-09-21] MEDS: MULTIVITAMINS/MINERALS THERAP 1 TAB PO SCH (08:55)
[2022-09-21] MEDS: THIAMINE 100 MG TAB PO SCH (08:56)
[2022-09-21] MEDS: PANTOPRAZOLE 40MG TAB (PROTONIX) PO SCH ×2 (08:57→20:46)
[2022-09-21] MEDS: FOLIC ACID 1MG TAB PO SCH (08:57)
[2022-09-21 14:00] VITALS: BP 156/96
[2022-09-21] MEDS: RIVAROXABAN 10MG TAB (XARELTO) PO SCH (18:31)
[2022-09-21] MEDS: traZODone 50 MG TAB PO SCH (20:46)
[2022-09-21] MEDS: RAMELTEON 8 MG TAB (ROZEREM) PO SCH (20:46)
[2022-09-21 22:00] VITALS: BP 125/87
[2022-09-22 06:00] VITALS: BP 122/90
[2022-09-22] MEDS: MIRALAX *UNIT DOSE* 17GM PACKET PO SCH ×2 (07:40→20:59)
[2022-09-22] MEDS: MULTIVITAMINS/MINERALS THERAP 1 TAB PO SCH (09:01)
[2022-09-22] MEDS: PANTOPRAZOLE 40MG TAB (PROTONIX) PO SCH ×2 (09:01→20:58)
[2022-09-22] MEDS: THIAMINE 100 MG TAB PO SCH (09:02)
[2022-09-22] MEDS: FOLIC ACID 1MG TAB PO SCH (09:04)
[2022-09-22] MEDS: NICOTINE 21MG/24HR 1 EA TRANSDERMAL TD PRN (09:43)
[2022-09-22 14:00] VITALS: BP 139/86
[2022-09-22 16:08] LABS: ANCA-ATYPICAL <1:20 titer (Neg:<1:20); ANTI-MITOCHONDRIAL ANTIBODY <20.0 Units (0.0-20.0); CERULOPLASMIN 21.4 mg/dL (16.0-31.0); CYTOPLASMIC NEUTROP AB ANCA-C <1:20 titer (Neg:<1:20); LIVER-KIDNEY MICROSOMAL ABY <20.1 Units (0.0-20.0); PERINUCLEAR AB ANCA-P <1:20 titer (Neg:<1:20)
[2022-09-22] MEDS: RIVAROXABAN 10MG TAB (XARELTO) PO SCH (18:06)
[2022-09-22 20:11] LABS: ANTI SMITH(Sm) AB <20 Units (<20); ANTINUCLEAR ANTIBODIES DIRECT Negative (Negative)
[2022-09-22] MEDS: RAMELTEON 8 MG TAB (ROZEREM) PO SCH (20:58)
[2022-09-22] MEDS: traZODone 50 MG TAB PO SCH (20:58)
[2022-09-22 21:09] VITALS: BP 128/77
[2022-09-23 04:40] VITALS: BP 126/77
[2022-09-23] MEDS: MULTIVITAMINS/MINERALS THERAP 1 TAB PO SCH (08:04)
[2022-09-23] MEDS: FOLIC ACID 1MG TAB PO SCH (08:04)
[2022-09-23] MEDS: PANTOPRAZOLE 40MG TAB (PROTONIX) PO SCH (08:04)
[2022-09-23] MEDS: THIAMINE 100 MG TAB PO SCH (08:04)
[2022-09-23 08:05] VITALS: BP 124/79
[2022-09-23] MEDS: MIRALAX *UNIT DOSE* 17GM PACKET PO SCH (08:05)
[2022-09-23] MEDS: NICOTINE 21MG/24HR 1 EA TRANSDERMAL TD PRN (08:08)
[2022-09-23] MEDS ORDERED: MIRA1POW3 PO (10:23)
[2022-09-23] MEDS ORDERED: FOLI1TAB11 PO (10:23)
[2022-09-23] MEDS ORDERED: THIA100TA PO (10:23)
[2022-09-23] MEDS ORDERED: NICO21PAT TD (10:23)
[2022-09-23] MEDS ORDERED: VITMTA PO (10:23)
[2022-09-23] MEDS ORDERED: AMLO1TAB25 PO (10:23)
[2022-09-23] MEDS ORDERED: PANT40TA29 PO (10:23)
== END 2022-09-23 16:33 | DRG 816 ==
LOC: M ED 15:42 → M ED INP 09-13 01:04 → ENRESERV 09-13 06:48 → M MSPAV 09-13 09:40 → M ICU 09-14 09:19 → M MSPAV 09-16 19:05
PROVIDERS: ADMIT Family Medicine; ATTEND Internal Medicine
DX: T51.92XA Toxic effect of unspecified alcohol, intentional self-harm, initial encounter (principal); E87.20 Acidosis, unspecified; K85.20 Alcohol induced acute pancreatitis without necrosis or infection; E83.42 Hypomagnesemia; K76.0 Fatty (change of) liver, not elsewhere classified; K70.10 Alcoholic hepatitis without ascites; F41.9 Anxiety disorder, unspecified; F32.A Depression, unspecified; F17.200 Nicotine dependence, unspecified, uncomplicated; F10.229 Alcohol dependence with intoxication, unspecified; I10 Essential (primary) hypertension; F10.239 Alcohol dependence with withdrawal, unspecified; G47.00 Insomnia, unspecified; K59.00 Constipation, unspecified; G47.33 Obstructive sleep apnea (adult) (pediatric); E87.6 Hypokalemia; K21.9 Gastro-esophageal reflux disease without esophagitis; Z59.02 Unsheltered homelessness

== ENCOUNTER 2022-09-23 15:59 | Inpatient (IN) | payer OTHER ==
[~2022-09-23] VITALS: Ht 180.3 cm; Wt 102.2 kg
[~2022-09-23 15:59] MED LIST changes: +AMLO1TAB25 PO; +MIRA1POW3 PO
[2022-09-23] MEDS ORDERED: MAALOX 30 ML SUSP *UDC PO PRN (16:00)
[2022-09-23] MEDS ORDERED: IBUPROFEN 400MG TAB PO PRN (16:00)
[2022-09-23] MEDS ORDERED: MOM 30ML SUSPENSION UDC PO PRN (16:00)
[2022-09-23] MEDS ORDERED: ONDANSETRON 4MG ORAL DISINTEGRATING TAB PO PRN (16:00)
[2022-09-23 16:42] VITALS: BP 140/87
[2022-09-23] MEDS ORDERED: HOME MED LIST COMPLETE! XX SCH (19:30)
[2022-09-23] MEDS: RIVAROXABAN 10MG TAB (XARELTO) PO SCH (19:51)
[2022-09-23] MEDS: MIRALAX *UNIT DOSE* 17GM PACKET PO SCH (20:06)
[2022-09-23] MEDS: PANTOPRAZOLE 40MG TAB (PROTONIX) PO SCH (20:07)
[2022-09-23] MEDS: traZODone 50 MG TAB PO SCH (20:07)
[2022-09-23] MEDS: RAMELTEON 8 MG TAB (ROZEREM) PO SCH (20:07)
[2022-09-24 06:20] VITALS: BP 134/95
[2022-09-24] MEDS: MIRALAX *UNIT DOSE* 17GM PACKET PO SCH ×2 (09:00→21:00)
[2022-09-24] MEDS ORDERED: NICOTINE 21MG/24HR 1 EA TRANSDERMAL TD SCH (09:00)
[2022-09-24] MEDS: FOLIC ACID 1MG TAB PO SCH (09:18)
[2022-09-24] MEDS: PANTOPRAZOLE 40MG TAB (PROTONIX) PO SCH ×2 (09:18→21:35)
[2022-09-24] MEDS: MULTIVITAMINS/MINERALS THERAP 1 TAB PO SCH (09:18)
[2022-09-24] MEDS: NICOTINE 21MG/24HR 1 EA TRANSDERMAL TD SCH (09:19)
[2022-09-24 09:32] LABS: ALBUMIN 3.7 G/DL (3.2-5.2); ALKALINE PHOSPHATASE 91 U/L (46-116); ALT/SGPT 177 U/L (7.0-40); AST/SGOT 73 U/L (<34); BILIRUBIN,TOTAL 0.5 MG/DL (0.3-1.2); BLOOD UREA NITROGEN 16 MG/DL (9-23); CALCIUM LEVEL 9.3 MG/DL (8.5-10.1); CARBON DIOXIDE LEVEL 27 MMOL/L (20-31); CHLORIDE LEVEL 106 MMOL/L (98-107); CREATININE FOR GFR 1.03 MG/DL (0.70-1.30); GLOMERULAR FILTRATION RATE > 60.0 (>60); GLUCOSE, FASTING 138 MG/DL (60-100); POTASSIUM SERUM 4.2 MMOL/L (3.5-5.1); SODIUM LEVEL 141 MMOL/L (136-145); TOTAL PROTEIN 6.6 G/DL (5.7-8.2)
[2022-09-24] MEDS: THIAMINE 100 MG TAB PO SCH ×2 (10:35→21:35)
[2022-09-24] MEDS: cloNIDine 0.1MG TABLET PO SCH (10:40)
[2022-09-24] MEDS: LORazepam 2 MG TAB PO PRN ×2 (11:16→15:28)
[2022-09-24 11:32] VITALS: BP 125/86
[2022-09-24 13:03] VITALS: BP 122/79
[2022-09-24 15:23] VITALS: BP 118/76
[2022-09-24 17:12] VITALS: BP 129/84
[2022-09-24] MEDS: RIVAROXABAN 10MG TAB (XARELTO) PO SCH (18:15)
[2022-09-24 19:16] VITALS: BP 129/84
[2022-09-24] MEDS: PRAZOSIN 1 MG CAP PO SCH (21:35)
[2022-09-24] MEDS: traZODone 50 MG TAB PO SCH (21:35)
[2022-09-24] MEDS: RAMELTEON 8 MG TAB (ROZEREM) PO SCH (21:35)
[2022-09-24] MEDS: ARIPiprazole 10 MG TAB PO SCH (21:35)
[2022-09-25] VITALS (7 sets, daily range): BP systolic 90–141; BP diastolic 50–82
[2022-09-25] MEDS: cloNIDine 0.1MG TABLET PO SCH (08:38)
[2022-09-25] MEDS: PANTOPRAZOLE 40MG TAB (PROTONIX) PO SCH ×2 (08:53→19:57)
[2022-09-25] MEDS: FOLIC ACID 1MG TAB PO SCH (08:53)
[2022-09-25] MEDS: THIAMINE 100 MG TAB PO SCH (08:53)
[2022-09-25] MEDS: MULTIVITAMINS/MINERALS THERAP 1 TAB PO SCH (08:53)
[2022-09-25] MEDS: ESCITALOPRAM OXALATE 5MG TABLET (LEXAPRO) PO SCH (08:53)
[2022-09-25] MEDS: MIRALAX *UNIT DOSE* 17GM PACKET PO SCH ×2 (08:54→19:58)
[2022-09-25] MEDS: NICOTINE 21MG/24HR 1 EA TRANSDERMAL TD SCH (08:54)
[2022-09-25] MEDS ORDERED: FOLIC ACID 1MG TAB PO SCH (09:00)
[2022-09-25] MEDS ORDERED: MULTIVITAMINS/MINERALS THERAP 1 TAB PO SCH (09:00)
[2022-09-25] MEDS: RIVAROXABAN 10MG TAB (XARELTO) PO SCH (17:38)
[2022-09-25] MEDS: RAMELTEON 8 MG TAB (ROZEREM) PO SCH (19:57)
[2022-09-25] MEDS: ARIPiprazole 10 MG TAB PO SCH (19:57)
[2022-09-25] MEDS: PRAZOSIN 1 MG CAP PO SCH (19:57)
[2022-09-26 06:21] VITALS: BP 130/86
[2022-09-26] MEDS: cloNIDine 0.1MG TABLET PO SCH (08:20)
[2022-09-26] MEDS: MIRALAX *UNIT DOSE* 17GM PACKET PO SCH ×2 (08:20→20:51)
[2022-09-26] MEDS: PANTOPRAZOLE 40MG TAB (PROTONIX) PO SCH ×2 (08:20→20:50)
[2022-09-26] MEDS: ESCITALOPRAM OXALATE 5MG TABLET (LEXAPRO) PO SCH (08:20)
[2022-09-26] MEDS: NICOTINE 21MG/24HR 1 EA TRANSDERMAL TD SCH (08:21)
[2022-09-26] MEDS: busPIRone 10 MG TAB PO SCH ×2 (13:07→20:50)
[2022-09-26] MEDS: RIVAROXABAN 10MG TAB (XARELTO) PO SCH (17:46)
[2022-09-26 18:40] VITALS: BP 141/88
[2022-09-26] MEDS: RAMELTEON 8 MG TAB (ROZEREM) PO SCH (20:50)
[2022-09-26] MEDS: PRAZOSIN 1 MG CAP PO SCH (20:50)
[2022-09-26] MEDS: ARIPiprazole 10 MG TAB PO SCH (20:50)
[2022-09-27 06:47] VITALS: BP 122/77
[2022-09-27] MEDS: MIRALAX *UNIT DOSE* 17GM PACKET PO SCH (08:04)
[2022-09-27] MEDS: busPIRone 10 MG TAB PO SCH ×2 (08:31→20:18)
[2022-09-27] MEDS: PANTOPRAZOLE 40MG TAB (PROTONIX) PO SCH ×2 (08:31→20:18)
[2022-09-27] MEDS: cloNIDine 0.1MG TABLET PO SCH (08:31)
[2022-09-27] MEDS: ESCITALOPRAM OXALATE 10 MG TAB (LEXAPRO) PO SCH (08:31)
[2022-09-27] MEDS: NICOTINE 21MG/24HR 1 EA TRANSDERMAL TD SCH (08:32)
[2022-09-27 09:20] LABS: ALBUMIN 3.8 G/DL (3.2-5.2); BILIRUBIN,DIRECT 0.2 MG/DL (<0.4); BILIRUBIN,TOTAL 0.6 MG/DL (0.3-1.2)
[2022-09-27] MEDS: RIVAROXABAN 10MG TAB (XARELTO) PO SCH (17:29)
[2022-09-27 18:26] VITALS: BP 120/75
[2022-09-27] MEDS: hydrOXYzine 50 MG TAB PO PRN (20:18)
[2022-09-27] MEDS: PRAZOSIN 1 MG CAP PO SCH (20:18)
[2022-09-27] MEDS: ARIPiprazole 10 MG TAB PO SCH (20:18)
[2022-09-27] MEDS: RAMELTEON 8 MG TAB (ROZEREM) PO SCH (20:18)
[2022-09-28 06:07] VITALS: BP 119/70
[2022-09-28] MEDS: busPIRone 10 MG TAB PO SCH ×2 (07:57→20:12)
[2022-09-28] MEDS: ESCITALOPRAM OXALATE 10 MG TAB (LEXAPRO) PO SCH (07:57)
[2022-09-28] MEDS: hydrOXYzine 50 MG TAB PO PRN (07:58)
[2022-09-28] MEDS: PANTOPRAZOLE 40MG TAB (PROTONIX) PO SCH ×2 (07:58→20:12)
[2022-09-28] MEDS: NICOTINE 21MG/24HR 1 EA TRANSDERMAL TD SCH (07:59)
[2022-09-28] MEDS ORDERED: OLANZapine ORAL DISINTEGRATING TAB 5MG PO PRN (09:40)
[2022-09-28 16:31] VITALS: BP 119/76
[2022-09-28] MEDS: RIVAROXABAN 10MG TAB (XARELTO) PO SCH (17:14)
[2022-09-28] MEDS: RAMELTEON 8 MG TAB (ROZEREM) PO SCH (20:12)
[2022-09-28] MEDS: PRAZOSIN 1 MG CAP PO SCH (20:12)
[2022-09-28] MEDS: ARIPiprazole 10 MG TAB PO SCH (20:12)
[2022-09-29 06:36] VITALS: BP 120/76
[2022-09-29] MEDS: PANTOPRAZOLE 40MG TAB (PROTONIX) PO SCH ×2 (08:01→20:06)
[2022-09-29] MEDS: ESCITALOPRAM OXALATE 10 MG TAB (LEXAPRO) PO SCH (08:01)
[2022-09-29] MEDS: busPIRone 10 MG TAB PO SCH ×2 (08:01→20:07)
[2022-09-29] MEDS: NICOTINE 21MG/24HR 1 EA TRANSDERMAL TD SCH (08:02)
[2022-09-29 17:11] VITALS: BP 130/80
[2022-09-29 20:07] VITALS: BP 130/80
[2022-09-29] MEDS: PRAZOSIN 1 MG CAP PO SCH (20:07)
[2022-09-29] MEDS: RAMELTEON 8 MG TAB (ROZEREM) PO SCH (20:07)
[2022-09-29] MEDS: ARIPiprazole 10 MG TAB PO SCH (20:07)
[2022-09-30 06:47] VITALS: BP 140/66
[2022-09-30] MEDS ORDERED: BUSP10TA PO (08:24)
[2022-09-30] MEDS ORDERED: HYDR50TA70 PO (08:24)
[2022-09-30] MEDS: ESCITALOPRAM OXALATE 10 MG TAB (LEXAPRO) PO SCH (08:24)
[2022-09-30] MEDS ORDERED: RAME8TAB2 PO (08:24)
[2022-09-30] MEDS ORDERED: MINI1CAP PO (08:24)
[2022-09-30] MEDS: busPIRone 10 MG TAB PO SCH (08:24)
[2022-09-30] MEDS ORDERED: LEXA1TAB PO (08:24)
[2022-09-30] MEDS ORDERED: ABIL10TA9 PO (08:24)
[2022-09-30] MEDS: PANTOPRAZOLE 40MG TAB (PROTONIX) PO SCH (08:24)
[2022-09-30] MEDS: NICOTINE 21MG/24HR 1 EA TRANSDERMAL TD SCH (08:25)
== END 2022-09-30 13:16 | disposition home or self-care (01) | DRG 753 ==
LOC: M PSY 16:38
PROVIDERS: ADMIT Psychiatry & Neurology Psychiatry; ATTEND Student in an Organized Health Care Education/Training Program
DX: F31.9 Bipolar disorder, unspecified (principal); K70.10 Alcoholic hepatitis without ascites; F41.1 Generalized anxiety disorder; F43.10 Post-traumatic stress disorder, unspecified; F10.20 Alcohol dependence, uncomplicated; G47.30 Sleep apnea, unspecified; K21.9 Gastro-esophageal reflux disease without esophagitis; F17.200 Nicotine dependence, unspecified, uncomplicated; R25.1 Tremor, unspecified; K59.00 Constipation, unspecified; G47.00 Insomnia, unspecified; F12.10 Cannabis abuse, uncomplicated; Z91.51 Personal history of suicidal behavior; Z79.899 Other long term (current) drug therapy; Z56.0 Unemployment, unspecified; Z59.01 Sheltered homelessness